=== PATIENT | female | born 1945 | race Caucasian/White ===

== ENCOUNTER → 2018-02-11 12:33 | Outpatient (CLI) | payer MEDICARE, OTHER, SELFPAY | PROVIDERS: Family Provider Internal Medicine; PCP Internal Medicine; Visit Provider Internal Medicine | DX: Z12.31 Encounter for screening mammogram for malignant neoplasm of breast (principal) | CPT/HCPCS: 77063; 77067 ==

== ENCOUNTER → 2018-07-28 07:18 | Outpatient (CLI) | payer MEDICARE, OTHER, SELFPAY ==
[2018-07-28 11:00] LABS: Absolute Lymphocyte Count 1.57 X10^3/ul (0.83-4.51); Basophil# 0.03 X10^3/uL; Basophil% 0.6 % (0-1); Eosinophil# 0.23 X10^3/uL; Eosinophils% 4.4 % (0-5); Hematocrit 42.4 % (37-47); Hemoglobin 13.3 g/dl (12.0-15.0); Lymphocyte # 1.57 X10^3/ul (4.0); Lymphocyte % 29.9 % (19-41); Mean Corp Hgb Conc 31.4 g/gl (32-36); Mean Corpuscular Volume 98.8 fL (81-99); Mean Platelet Vol. 10.3 fl (6.2-12.0); Monocyte# 0.46 X10^3/uL; Monocyte% 8.8 % (0-10); Neutrophil # 2.95 X10^3/uL (2.7-7.7); Neutrophil % 56.1 % (47-70); POSITIVE COUNT NO; POSITIVE DIFFERENTIAL NO; POSITIVE MORPHOLOGY NO; Platelet Count 197 K/mm3 (150-450); RBC Distribution Width CV 14.6 % (11.6-14.6); Red Blood Count 4.29 M/mm3 (4.2-5.4); White Blood Count 5.3 K/mm3 (4.4-11.0)
[2018-07-28 11:15] LABS: Hemoglobin A1c 6.8 % (4.2-6.3)
[2018-07-28 11:18] LABS: Anion Gap 9 (5-15); BUN 24 mg/dL (7-18); BUN/Creat Ratio 29.3 RATIO (10-20); Calcium,Total 9.6 mg/dL (8.5-10.1); Chloride 107 mmol/L (98-107); Cholesterol 197 mg/dL (200); Creatinine, Serum 0.82 mg/dL (0.55-1.02); EST Glomerular Filtration Rate 73 mL/min (>60); Est Glom Filt Rate - Afr Amer 88 mL/min (>60); Glucose 117 mg/dL (74-106); High Density Lipoprotein 48 mg/dL; Potassium 3.8 mmol/L (3.5-5.1); Sodium Level 142 mmol/L (136-145); Triglycerides 326 mg/dL; Very Low Density Lipoprotein 65 mg/dL (5-40)
== END ==
PROVIDERS: Family Provider Internal Medicine; PCP Internal Medicine; Referring Provider Internal Medicine; Visit Provider Internal Medicine
DX: I10 Essential (primary) hypertension (principal); E11.9 Type 2 diabetes mellitus without complications
CPT/HCPCS: 36415; 80048; 80061; 83036; 85025

== ENCOUNTER → 2019-05-25 10:23 | Outpatient (CLI) | payer MEDICARE, OTHER, SELFPAY ==
[2019-01-14 10:13] VITALS: BMI 35.4
--- NOTE | 2019-05-25 10:27 | BI_ITS ---
MAMMOGRAPHY - BILATERAL SCREENING REASON FOR EXAM: Female, 74 years old. Routine annual screening examination. PERTINENT HISTORY: Sister with breast cancer. Mother with breast cancer. Aunts with breast cancer. Remote right excisional breast biopsy. History of bruising in the left breast with palpable abnormality. TECHNIQUE: Digital bilateral breast nathalia (3D mammographic acquisition) in the CC and MLO projections. 2-D mediolateral oblique (MLO) and craniocaudad (CC) views of both breasts were obtained. CAD: Full Field Digital Mammography with Computer Added Detection was performed. COMPARISON: Comparison is made with prior study dated February 11, 2018 and January 22, 2007. FINDINGS: Breast Composition: The breasts are heterogeneously dense, which may obscure small masses. There is a 1.1 cm x 0.7 cm well defined nodule in the central slightly lateral aspect of the right breast. No cluster of microcalcification is seen. No other significant abnormalities are identified. BI/SCREEN MAMM (CAD) W/NATHALIA BILAT IMPRESSION: 1.1 cm x 0.7 cm well-defined nodule in the central slightly lateral aspect the right breast. Correlation with ultrasound is recommended. Also, with the patient's history of a palpable abnormality of the left breast, targeted ultrasound is recommended as well. ASSESSMENT CATEGORY: BIRADS Category 0: Incomplete. Need additional imaging evaluation. A letter regarding these results will be sent to the patient by the facility within 30 days. Approximately 10% of breast cancers are not detected by mammography. A normal mammogram should not delay biopsy of a clinically suspicious abnormality. [id number] Electronically Signed: Stas Ambrocio, at 12:20 EST , Service support ,
--- NOTE | 2019-05-25 10:29 | BD_ITS ---
STUDY: DUAL ENERGY X-RAY ABSORPTIOMETRY / DXA REASON FOR EXAM: Female, 74 years old. The patient is postmenopausal. Loss of height. TECHNIQUE: Bone Mineral Density (BMD) measurements of lumbar spine and bilateral hips were obtained. COMPARISON: Comparison is made with prior study dated January 22, 2017. FINDINGS: Lumbar Spine (L1-L4): g/cm2 (1.052) / T-score (-1.2) / Z-score (0.5) Findings are suggestive of osteopenia with a low fracture risk. Left Femur Total: g/cm2 (0.978) / T-score (-0.2) / Z-score (1.3) Left Femoral Neck: g/cm2 (0.790) / T-score (-1.8) / Z-score (0.0) Right Femur Total: g/cm2 (0.916) / T-score (-0.7) / Z-score (0.8) Right Femoral Neck: g/cm2 (0.736) / T-score (-2.2) / Z-score (-0.4) The T-Scores on the most recent prior examination were: Lumbar Spine (L1-L4): There has been worsening of bone density since the previous examination. Left Femur Total: which represents a worsening of 5.4%. Right Femur Total: which represents a worsening of 6.2%. BD/Dexa Bone Density Study IMPRESSION: The patient is considered osteopenic as outlined below according to World Rasta Organization (WHO) criteria with a moderate fracture risk. There has been worsening of bone density since the previous examination. Reference Information: The T-score is the number of standard deviations above or below the standard which is normal for young adults at their peak bone mineral density. The World Health Organization (WHO) interprets the T-scores as follows: Above -1 Normal bone density Between -1 and -2.5 Osteopenia Equal to / or below -2.5 Osteoporosis As a practical clinical guideline, osteopenia may be graded as follows: Mild -1 through -1.5 Moderate -1.6 through -2.0 Severe -2.1 through -2.4 The Z-score is the number of standard deviations above or below age-matched controls. A Z-score of less than -1.5 would be considered abnormal. References: 1. NIH Osteoporosis and Related Bone Diseases http://www.osteo.org 2. International Society for Clinical Densitometry http://www.iscd.org 3. National Osteoporosis Foundation http://www.nof.org Electronically Signed: Stas Ambrocio, at 15:22 EST , Service support ,
== END ==
PROVIDERS: Family Provider Internal Medicine; PCP Internal Medicine; Referring Provider Internal Medicine; Visit Provider Internal Medicine
DX: Z12.31 Encounter for screening mammogram for malignant neoplasm of breast (principal); Z78.0 Asymptomatic menopausal state; M85.80 Other specified disorders of bone density and structure, unspecified site; Z80.3 Family history of malignant neoplasm of breast
CPT/HCPCS: 77063; 77067; 77080

== ENCOUNTER → 2019-05-27 13:14 | Outpatient (CLI) | payer MEDICARE, OTHER, SELFPAY ==
[2019-01-14 10:13] VITALS: BMI 35.4
--- NOTE | 2019-05-27 13:17 | US_ITS ---
STUDY: ULTRASOUND BREAST - BILATERAL REASON FOR EXAM: Female, 74 years old. Palpable lump in the left breast. TECHNIQUE: Axial and longitudinal images of the BILATERAL breast were performed with a high resolution ultrasound transducer. # OF IMAGES: 56 COMPARISON: Comparison is made with prior mammogram dated May 25, 2019. FINDINGS: BILATERAL Breast: The entire right breast was examined. There is homogeneous fibroglandular tissue. No normality is seen. There is a 4 mm x 4 mm x 3 mm cyst at the 12:00 position of the breast at 4 cm from the nipple. This also evidence of the 4 mm x 4 mm x 2 mm cyst at the 5:00 position of the breast at 4 cm from nipple. US/Breast Complete Bilateral IMPRESSION: 2 small cysts are seen in the left breast as described. No sonographic abnormality of the right breast. ASSESSMENT CATEGORY: BIRADS Category 2: Benign. A letter regarding these results will be sent to the patient by the facility within 30 days. Electronically Signed: Stas Ambrocio, at 9:53 EST , Service support ,
== END ==
PROVIDERS: Family Provider Internal Medicine; PCP Internal Medicine; Referring Provider Internal Medicine; Visit Provider Internal Medicine
DX: R92.8 Other abnormal and inconclusive findings on diagnostic imaging of breast (principal)
CPT/HCPCS: 76641

== ENCOUNTER → 2019-07-11 12:00 | Outpatient (CLI) | payer MEDICARE, OTHER, SELFPAY ==
[2019-06-01 09:29] VITALS: BMI 38.2
[2019-07-11 12:35] LABS: Absolute Lymphocyte Count 1.24 X10^3/uL (0.83-4.51); Absolute Neutrophil Count 4.3 X10^3/uL (2.0-7.7); Basophil# 0.03 X10^3/uL; Basophil% 0.5 % (0-1); Eosinophil# 0.18 X10^3/uL; Eosinophils% 2.9 % (0-5); Hematocrit 43.7 % (37-47); Hemoglobin 13.5 g/dL (12.0-15.0); Lymphocyte # 1.24 X10^3/ul (4.0); Lymphocyte % 19.8 % (19-41); Mean Corp Hgb Conc 30.9 g/dL (32-36); Mean Corpuscular Hgb 30.1 pg (27.0-32.0); Mean Corpuscular Volume 97.5 fL (81-99); Mean Platelet Vol. 10.1 fl (6.2-12.0); Monocyte# 0.49 X10^3/uL; Monocyte% 7.8 % (0-10); NRBC Flagged by Analyzer 0 % (0-5); Neutrophil # 4.29 X10^3/uL (2.7-7.7); Neutrophil % 68.7 % (47-70); Platelet Count 187 K/mm3 (150-450); RBC Distribution Width CV 13.7 % (11.6-14.6); RBC Distribution Width SD 49.9 fl (35.1-43.9); Red Blood Count 4.48 M/mm3 (4.2-5.4); White Blood Count 6.3 K/mm3 (4.4-11.0)
[2019-07-11 13:01] LABS: ALB/GLOB Ratio 1.1 RATIO (0.9-2.4); AST(SGOT) 20 U/L (15-37); Alanine Aminotransfer ALT/SGPT 42 U/L (13-56); Albumin, Serum 3.6 g/dL (3.2-5.0); Alkaline Phosphatase 162 U/L (45-117); Anion Gap 3 (5-15); BUN 14 mg/dL (7-18); BUN/Creat Ratio 19.7 RATIO (10-20); Calcium,Total 10.5 mg/dL (8.5-10.1); Chloride 108 mmol/L (98-107); Cholesterol 188 mg/dL (200); Creatinine, Serum 0.71 mg/dL (0.55-1.02); EST Glomerular Filtration Rate 86 mL/min (>60); Est Glom Filt Rate - Afr Amer 104 mL/min (>60); Globulin 3.4 g/dL (2.2-4.2); Glucose 138 mg/dL (74-106); High Density Lipoprotein 51 mg/dL; Sodium Level 141 mmol/L (136-145); Triglycerides 240 mg/dL; Very Low Density Lipoprotein 48 mg/dL (5-40)
[2019-07-11 13:04] LABS: Hemoglobin A1c 6.1 % (4.2-6.3)
[2019-07-11 13:11] LABS: Microalbumin,Random Urine 13.2 mg/L (NO RANGE EST.); Vitamin D,25 Hydroxy 19.3 ng/mL (29.95-100.01)
== END ==
PROVIDERS: PCP Internal Medicine; Visit Provider Internal Medicine
DX: E11.9 Type 2 diabetes mellitus without complications (principal); L40.9 Psoriasis, unspecified; I10 Essential (primary) hypertension; E55.9 Vitamin D deficiency, unspecified
CPT/HCPCS: 36415; 80053; 80061; 82043; 82306; 82570; 83036; 85025

== ENCOUNTER → 2020-01-09 10:33 | Outpatient (CLI) | payer MEDICARE, OTHER, SELFPAY ==
[2020-01-09 10:09] VITALS: BMI 38.2
[2020-01-09 12:30] LABS: Anion Gap 5 (5-15); BUN 16 mg/dL (7-18); BUN/Creat Ratio 20.4 RATIO (10-20); Calcium,Total 9.8 mg/dL (8.5-10.1); Chloride 106 mmol/L (98-107); Creatinine, Serum 0.78 mg/dL (0.55-1.02); EST Glomerular Filtration Rate 77 mL/min (>60); Est Glom Filt Rate - Afr Amer 93 mL/min (>60); Glucose 176 mg/dL (74-106); Potassium 4.2 mmol/L (3.5-5.1); Sodium Level 139 mmol/L (136-145)
== END ==
PROVIDERS: PCP Internal Medicine; Referring Provider Internal Medicine; Visit Provider Internal Medicine
DX: I10 Essential (primary) hypertension (principal); E11.9 Type 2 diabetes mellitus without complications
CPT/HCPCS: 36415; 80048

== ENCOUNTER → 2020-07-09 10:47 | Outpatient (CLI) | payer MEDICARE, OTHER, SELFPAY ==
[2020-07-09 12:51] LABS: Absolute Lymphocyte Count 1.25 X10^3/uL (0.83-4.51); Basophil# 0.05 X10^3/uL; Basophil% 0.8 % (0-1); Hematocrit 44.9 % (37-47); Hemoglobin 14.3 g/dL (12.0-15.0); Lymphocyte # 1.25 X10^3/ul (4.0); Lymphocyte % 20.7 % (19-41); Mean Corp Hgb Conc 31.8 g/dL (32-36); Mean Corpuscular Volume 97.4 fL (81-99); Mean Platelet Vol. 10.1 fl (6.2-12.0); Monocyte# 0.46 X10^3/uL; Monocyte% 7.6 % (0-10); NRBC Flagged by Analyzer 0 % (0-5); Neutrophil # 3.96 X10^3/uL (2.7-7.7); Neutrophil % 65.6 % (47-70); Platelet Count 224 K/mm3 (150-450); RBC Distribution Width SD 50.4 fl (35.1-43.9); Red Blood Count 4.61 M/mm3 (4.2-5.4)
[2020-07-09 13:03] LABS: ALB/GLOB Ratio 0.9 RATIO (0.9-2.4); AST(SGOT) 30 U/L (15-37); Alanine Aminotransfer ALT/SGPT 50 U/L (13-56); Albumin, Serum 3.5 g/dL (3.2-5.0); Alkaline Phosphatase 164 U/L (45-117); Anion Gap 7 (5-15); BUN 15 mg/dL (7-18); BUN/Creat Ratio 19.3 RATIO (10-20); Calcium,Total 10.1 mg/dL (8.5-10.1); Chloride 102 mmol/L (98-107); Cholesterol 193 mg/dL (200); Creatinine, Serum 0.78 mg/dL (0.55-1.02); EST Glomerular Filtration Rate 77 mL/min (>60); Est Glom Filt Rate - Afr Amer 93 mL/min (>60); Globulin 3.7 g/dL (2.2-4.2); Glucose 132 mg/dL (74-106); High Density Lipoprotein 48 mg/dL; Potassium 3.9 mmol/L (3.5-5.1); Protein, Total 7.2 g/dL (6.4-8.2); Sodium Level 137 mmol/L (136-145); Triglycerides 262 mg/dL; Very Low Density Lipoprotein 52 mg/dL (5-40)
[2020-07-09 13:11] LABS: Hemoglobin A1c 6.3 % (3.8-5.6)
== END ==
PROVIDERS: PCP Internal Medicine; Visit Provider Internal Medicine
DX: E11.9 Type 2 diabetes mellitus without complications (principal); I10 Essential (primary) hypertension; E78.5 Hyperlipidemia, unspecified; E55.9 Vitamin D deficiency, unspecified
CPT/HCPCS: 36415; 80053; 80061; 82306; 83036; 85025

== ENCOUNTER → 2021-11-04 | Outpatient (CLI) | payer MEDICARE, OTHER, SELFPAY ==
[2021-11-04 15:13] LABS: Absolute Lymphocyte Count 1.19 X10^3/uL (0.83-4.51); Absolute Neutrophil Count 4.4 X10^3/uL (2.0-7.7); Basophil# 0.03 X10^3/uL; Basophil% 0.5 % (0-1); Eosinophil# 0.19 X10^3/uL; Hematocrit 37.8 % (37-47); Hemoglobin 11.8 g/dL (12.0-15.0); Lymphocyte # 1.19 X10^3/ul (0.83-4.51); Lymphocyte % 18.5 % (19-41); Mean Corp Hgb Conc 31.2 g/dL (32-36); Mean Corpuscular Hgb 31.5 pg (27.0-32.0); Mean Corpuscular Volume 100.8 fL (81-99); Mean Platelet Vol. 9.8 fl (6.2-12.0); Monocyte# 0.62 X10^3/uL; Monocyte% 9.7 % (0-10); NRBC Flagged by Analyzer 0 % (0-5); Neutrophil # 4.37 X10^3/uL (2.7-7.7); Platelet Count 225 K/mm3 (150-450); RBC Distribution Width CV 14.4 % (11.6-14.6); RBC Distribution Width SD 52.6 fl (35.1-43.9); Red Blood Count 3.75 M/mm3 (4.2-5.4); White Blood Count 6.4 K/mm3 (4.4-11.0)
[2021-11-04 15:36] LABS: Vitamin D,25 Hydroxy 42.9 ng/mL
[2021-11-04 15:48] LABS: ALB/GLOB Ratio 0.9 RATIO (0.9-2.4); AST(SGOT) 22 U/L (15-37); Alanine Aminotransfer ALT/SGPT 35 U/L (13-56); Albumin, Serum 3.2 g/dL (3.2-5.0); Alkaline Phosphatase 142 U/L (45-117); Anion Gap 8 (5-15); BUN 16 mg/dL (7-18); Calcium,Total 10.5 mg/dL (8.5-10.1); Chloride 105 mmol/L (98-107); Cholesterol 169 mg/dL (200); Creatinine, Serum 0.67 mg/dL (0.55-1.02); EST Glomerular Filtration Rate 92 mL/min (>60); Est Glom Filt Rate - Afr Amer 111 mL/min (>60); Globulin 3.4 g/dL (2.2-4.2); Glucose 135 mg/dL (74-106); High Density Lipoprotein 46 mg/dL; Potassium 3.5 mmol/L (3.5-5.1); Protein, Total 6.6 g/dL (6.4-8.2); Sodium Level 142 mmol/L (136-145); Triglycerides 299 mg/dL; Very Low Density Lipoprotein 60 mg/dL (5-40)
[2021-11-04 17:43] LABS: Ferritin 31 ng/mL (8-252); Iron 71 ug/dL (50-170); Iron Binding Capacity,Total 369 ug/dL (250-450)
== END | disposition home or self-care (01) ==
LOC: BIMLAB 13:49
PROVIDERS: PCP Internal Medicine; Referring Provider Internal Medicine; Visit Provider Internal Medicine
DX: E55.9 Vitamin D deficiency, unspecified (principal); E11.9 Type 2 diabetes mellitus without complications; D64.9 Anemia, unspecified; E78.5 Hyperlipidemia, unspecified
CPT/HCPCS: 36415; 80053; 80061; 82306; 82728; 83540; 83550; 85025

== ENCOUNTER → 2021-11-08 | Outpatient (CLI) | payer MEDICARE, OTHER, SELFPAY ==
--- NOTE | 2021-11-08 13:24 | BI_ITS ---
MAMMOGRAPHY - BILATERAL SCREENING REASON FOR EXAM: Female, 76 years old. Routine annual screening examination. PERTINENT HISTORY: Sister with breast cancer. Mother with breast cancer. Aunt with breast cancer. Remote right excisional breast biopsy. TECHNIQUE: Digital bilateral breast nathalia (3D mammographic acquisition) in the CC and MLO projections. 2-D mediolateral oblique (MLO) and craniocaudad (CC) views of both breasts were obtained. CAD: Full Field Digital Mammography with Computer Added Detection was performed. COMPARISON: Comparison is made with prior study dated 05/25/2019 and 02/11/2018. FINDINGS: Breast Composition: The breasts are heterogeneously dense, which may obscure small masses. There are no dominant masses or suspicious calcifications. Stable 1.1 cm well-defined nodule in the slightly upper lateral aspect of the right breast. This was demonstrated to be a cyst on prior sonogram. No other significant abnormalities are identified. There has been no significant change since the prior study. BI/SCRN MAMM (CAD)W/NATHALIA BILAT IMPRESSION: Stable bilateral screening mammogram. Yearly follow-up mammogram recommended. (A) ASSESSMENT CATEGORY: BIRADS Category 2: Benign. A letter regarding these results will be sent to the patient by the facility within 30 days. Approximately 10% of breast cancers are not detected by mammography. A normal mammogram should not delay biopsy of a clinically suspicious abnormality. [id number] Electronically Signed: Stas Ambrocio MD at 14:52 EDT ,
== END | disposition home or self-care (01) ==
LOC: OPBI 13:22
PROVIDERS: PCP Internal Medicine; Visit Provider Internal Medicine
DX: Z12.31 Encounter for screening mammogram for malignant neoplasm of breast (principal); Z80.3 Family history of malignant neoplasm of breast
CPT/HCPCS: 77063; 77067

== ENCOUNTER 2022-03-03 18:13 | Emergency (ER) | payer MEDICARE, OTHER, SELFPAY ==
[2022-03-03] VITALS (9 sets, daily range): BP systolic 120–154; BP diastolic 61–103; PULSE 80–95; RESP 15–17; TEMP 35.9–36.6; O2SAT 97–100; BMI 35.6
--- NOTE | 2022-03-03 19:02 | EDS_ITS ---
HPI History of Present Illness Chief Complaint: Abn Labs Narrative Narrative: 76-year-old female presenting with low hemoglobin. She states that she has been fatigued, a little short of breath for about 3 weeks now. She had outpatient blood work done which showed her hemoglobin was 5.5. She was sent to the ED for evaluation. She says sometimes she has some throat irritation but is able to eat, drink, swallow. She does not have any epigastric pain. She denies black or bloody stools. She has no abdominal pain. No history of GI bleed. She has a history of colonoscopy which was normal distantly. She is never had upper endoscopy. [facility] Medical History Anemia Cataracts, both eyes Flu vaccine need Gallstones Health care maintenance History of back problems Hyperlipemia Home Medications aspirin 81 mg tablet,delayed release 81 mg PO QDAY 01/08/18 [History Last Taken Unknown] calcium carbonate 600 mg calcium (1,500 mg) tablet (Calcium) 600 mg PO BID 01/08/18 [History Last Taken Unknown] cholecalciferol (vitamin D3) 25 mcg (1,000 unit) capsule 1,000 unit PO QDAY 01/08/18 [History Last Taken Unknown] omega 3-fds-cql-fish oil 1,200 mg (144 mg-216 mg) capsule (Fish Oil) cap PO 01/09/20 [History Last Taken Unknown] vitamins A,C,J-cmyr-eklidk 14,320 unit-226 mg-200 unit capsule (PreserVision AREDS) 1 cap PO BID 01/09/20 [History Last Taken Unknown] hydrochlorothiazide 12.5 mg tablet 12.5 mg PO DAILY #90 tabs 03/11/21 [Rx Last Taken Unknown] losartan 50 mg tablet 50 mg PO DAILY #90 tabs 03/11/21 [Rx Last Taken Unknown] atorvastatin 20 mg tablet 20 mg PO DAILY #90 tabs 09/19/21 [Rx Last Taken Unknown] betamethasone valerate 0.1 % topical ointment 1 applic topical BID PRN rash #45 grams 12/31/21 [Rx Last Taken Unknown] miconazole nitrate 2 % topical powder 1 applic topical BID #90 grams 12/31/21 [Rx Last Taken Unknown] Allergy/AdvReac Type Severity Reaction Status Date / Time No Known Allergies Allergy Verified 03/03/22 18:14 Family History Mother Breast cancer Grandmother CVA (cerebral vascular accident) Hypertension Father Heart disease Myocardial infarction Sister Breast cancer Aunt Breast cancer Surgical History Broken ankle H/O: hysterectomy Hx of section Hx of colonoscopy Social History Smoking Status: Former smoker Tobacco: How many years used: 13 alcohol intake: current alcohol intake frequency: holidays/special occasions only Alcohol type: beer, wine and hard liquor substance use type: does not use caffeine: Yes Type: coffee what type of physical activity do you participate in: none ROS ROS ED Constitutional Constitutional ED: Denies chills or fever(s) Eyes Eyes: Denies change in vision ENT ENT ED: Denies rhinorrhea or sore throat Cardiovascular Cardiovascular: Denies chest pain or palpitations Respiratory/Chest Respiratory/Chest: Denies cough or dyspnea Gastrointestinal Gastrointestinal: Denies abdominal pain, constipation or melena Genitourinary Genitourinary ED: Denies dysuria or hematuria Musculoskeletal Musculoskeletal: Denies arthralgias Integumentary Denies abscess or Abrasions Neurologic Neurologic: Denies headache(s) Psychiatric Psychiatric: Denies anxiety or depression EXAM Physical Exam Const Vital Signs: 03/03/22 18:14 03/03/22 18:42 03/03/22 20:55 Temperature 97.9 F 96.6 F L Temperature Source Temporal Temporal Pulse Rate 95 81 Respiratory Rate 16 15 Respiratory Effort Short of Breath Respiratory Pattern Normal Blood Pressure 124/81 H 120/103 H Blood Pressure Mean 95 108 Blood Pressure Source Monitor Blood Pressure Position Semi-Fowlers Blood Pressure Location Right Arm Pulse Ox 99 100 Oxygen Delivery Method Room Air Room Air 03/03/22 21:08 03/03/22 21:10 03/03/22 22:29 Temperature 97.5 F L 97.7 F L 97.4 F L Temperature Source Temporal Temporal Temporal Pulse Rate 84 83 82 Respiratory Rate 17 16 17 Respiratory Effort Respiratory Pattern Blood Pressure 142/63 H 151/66 H 154/69 H Blood Pressure Mean 89 94 97 Blood Pressure Source Monitor Monitor Monitor Blood Pressure Position Semi-Fowlers Semi-Fowlers Semi-Fowlers Blood Pressure Location Right Arm Right Arm Right Arm Pulse Ox 99 97 99 Oxygen Delivery Method Room Air Room Air Room Air 03/03/22 22:33 Temperature 97.7 F L Temperature Source Temporal Pulse Rate 83 Respiratory Rate 15 Respiratory Effort Respiratory Pattern Blood Pressure 148/61 H Blood Pressure Mean 90 Blood Pressure Source Monitor Blood Pressure Position Semi-Fowlers Blood Pressure Location Right Arm Pulse Ox 100 Oxygen Delivery Method Room Air Positive well nourished General Appearance ED: NAD; Negative for pallor HEENT Reports moist mucous membranes Negative for trauma Eyes PERRL and EOMs intact bilaterally General Eye ED: Yes pale conjunctiva Neck no lymphadenopathy Resp normal respiratory effort and clear to auscultation bilaterally Cardio regular rate and regular rhythm GI normal to inspection, nondistended, normoactive bowel sounds Extremity normal to inspection Neuro CN's II-XII intact bilaterally Sensorium / Orientation: alert Motor Exam: strength 5/5 throughout Psych mental status grossly normal Skin no rashes or lesions noted and no wounds General Skin Exam: Negative for jaundice or pallor MDM MDM MDM Narrative Medical decision making narrative: Patient presenting with acute onset anemia. She denies any black or bloody stools. She denies black or bloody emesis. At most she states she had some irritation in her esophagus. She is able to eat and drink normally. She has had symptoms of fatigue and lightheadedness as well as a little bit of shortness of breath. Blood work outpatient today showed a hemoglobin of 5.5. The last hemoglobin she had drawn was 11.8 in October. Vital signs are stable and actually her blood pressure is normal at 124/81. Pulse 95, respiratory rate 16, O2 sats 99% on room air. Patient does have pale conjunctiva but she does not look pale. I spoke with Dr. Nunez. who did not believe she needed emergent endoscopy as she is not had any rapid bleeding and cannot describe any black or bloody stools. He recommended transfusing 3 units of blood and having her follow-up with him outpatient. I did offer to admit the patient for monitoring to receive the blood but did state to her that she would not get an endoscopy even if she stayed. At this point she states she just wanted to get transfused and follow- up as an outpatient. She refused rectal exam for occult stool. Patient will be monitored until blood products were transfused and then she will be discharged home. Impression: 1. Acute anemia 2. GI bleed Lab Data Attestation: I reviewed the patient's lab results. Labs: Laboratory Results - last 24 hr 03/03/22 19:05 Blood Type O POSITIVE Antibody Screen NEGATIVE Crossmatch See Detail Discharge Plan Triage Chief Complaint: Abn Labs ED Provider: Alfonso Heller Dx/Rx/DC Orders Prescriptions: No Action aspirin 81 mg tablet,delayed release (DR/EC) 81 mg PO QDAY calcium carbonate [Calcium 600] 600 mg calcium (1,500 mg) tablet 600 mg PO BID cholecalciferol (vitamin D3) 1,000 unit capsule 1,000 unit PO QDAY PreserVision AREDS 14,[id number] lgai-gu-hjuo capsule 1 cap PO BID omega 5-oqz-plv-fish oil [Fish Oil] 1,200 (144-216) mg capsule PO losartan 50 mg tablet 50 mg PO DAILY Qty: 90 3RF hydrochlorothiazide 12.5 mg tablet 12.5 mg PO DAILY Qty: 90 3RF atorvastatin 20 mg tablet 20 mg PO DAILY Qty: 90 3RF betamethasone valerate 0.1 % ointment 1 applic TOPICAL BID PRN (Reason: rash) Qty: 45 3RF miconazole nitrate 2 % powder 1 applic TOPICAL BID Qty: 90 3RF Primary Care Provider: Elia Roblero Referrals: Elia Roblero MD [Primary Care Provider] -
[2022-03-04] VITALS (10 sets, daily range): BP systolic 140–178; BP diastolic 44–73; PULSE 77–84; RESP 16–21; TEMP 36.3–36.6; O2SAT 96–99
== END 2022-03-04 04:17 | disposition home or self-care (01) ==
PROVIDERS: Emergency Provider Student in an Organized Health Care Education/Training Program; PCP Internal Medicine; Visit Provider Student in an Organized Health Care Education/Training Program
DX: K92.2 Gastrointestinal hemorrhage, unspecified (principal); E78.5 Hyperlipidemia, unspecified; R06.02 Shortness of breath; D64.9 Anemia, unspecified; R19.5 Other fecal abnormalities; Z87.891 Personal history of nicotine dependence
CPT/HCPCS: 36415; 80053; 82306; 82728; 83540; 83550; 83880; 84443; 85025; 86850; 86900; 86901; 86920; 86922; 99283; J7040; P9016; A4216

== ENCOUNTER → 2022-03-03 | Outpatient (CLI) | payer MEDICARE, OTHER, SELFPAY ==
[2022-03-03 15:27] LABS: Absolute Lymphocyte Count 0.89 X10^3/uL (0.83-4.51); Absolute Neutrophil Count 4.3 X10^3/uL (2.0-7.7); Basophil# 0.04 X10^3/uL; Basophil% 0.7 % (0-1); Eosinophil# 0.11 X10^3/uL; Eosinophils% 1.9 % (0-5); Hematocrit 20.2 % (37-47); Lymphocyte # 0.89 X10^3/ul (0.83-4.51); Lymphocyte % 15.2 % (19-41); Mean Corp Hgb Conc 27.2 g/dL (32-36); Mean Corpuscular Hgb 26.1 pg (27.0-32.0); Mean Corpuscular Volume 95.7 fL (81-99); Monocyte# 0.45 X10^3/uL; Monocyte% 7.7 % (0-10); NRBC Flagged by Analyzer 0.3 % (0-5); Neutrophil # 4.32 X10^3/uL (2.7-7.7); POSITIVE COUNT YES; Platelet Count 293 K/mm3 (150-450); RBC Distribution Width CV 17.4 % (11.6-14.6); RBC Distribution Width SD 58.8 fl (35.1-43.9); Red Blood Count 2.11 M/mm3 (4.2-5.4); White Blood Count 5.8 K/mm3 (4.4-11.0)
[2022-03-03 15:32] LABS: Vitamin D,25 Hydroxy 35.4 ng/mL
[2022-03-03 15:37] LABS: ALB/GLOB Ratio 0.9 RATIO (0.9-2.4); AST(SGOT) 13 U/L (15-37); Alanine Aminotransfer ALT/SGPT 21 U/L (13-56); Albumin, Serum 2.9 g/dL (3.2-5.0); Alkaline Phosphatase 143 U/L (45-117); Anion Gap 5 (5-15); BUN 19 mg/dL (7-18); BUN/Creat Ratio 27.2 RATIO (10-20); Calcium,Total 9.3 mg/dL (8.5-10.1); Chloride 109 mmol/L (98-107); EST Glomerular Filtration Rate 87 mL/min (>60); Est Glom Filt Rate - Afr Amer 105 mL/min (>60); Ferritin 7 ng/mL (8-252); Globulin 3.2 g/dL (2.2-4.2); Glucose 120 mg/dL (74-106); Iron 17 ug/dL (50-170); Iron Binding Capacity,Total 447 ug/dL (250-450); Potassium 3.6 mmol/L (3.5-5.1); Protein, Total 6.1 g/dL (6.4-8.2); Sodium Level 141 mmol/L (136-145); Thyroid Stim Hormone (TSH) 1.81 uIU/mL (0.358-3.74)
[2022-03-03 16:17] LABS: Differential Indicated SCAN CRITERIA MET; Hemoglobin 5.5 g/dL (12.0-15.0)
[2022-03-03 16:22] LABS: Differential Comment SCANNED; Hypochromasia 1+
[2022-03-03 17:15] LABS: BNP,B-Type NATRIURETIC PEPTIDE 50.6 pg/mL (0-100)
[2022-03-04 14:27] LABS: Pathologist Review Reviewed
== END | disposition home or self-care (01) ==
LOC: BIMLAB 13:59
PROVIDERS: PCP Internal Medicine; Visit Provider Physician Assistant
DX: E55.9 Vitamin D deficiency, unspecified (principal); D64.9 Anemia, unspecified; R53.83 Other fatigue; R06.02 Shortness of breath; R42 Dizziness and giddiness; I10 Essential (primary) hypertension
CPT/HCPCS: 36415; 80053; 82306; 82728; 83540; 83550; 83880; 84443; 85025

== ENCOUNTER 2022-03-05 13:01 | Inpatient (IN) | payer MEDICARE, OTHER, SELFPAY ==
[2022-03-05] VITALS (7 sets, daily range): BP systolic 124–160; BP diastolic 65–81; PULSE 70–90; RESP 12–18; TEMP 36–36.8; O2SAT 94–99; BMI 36.7; BMI 36.8
--- NOTE | 2022-03-05 14:32 | EKG12_ITS ---
Test Reason : GI BLEED Blood Pressure : / mmHG Vent. Rate : 092 BPM Atrial Rate : 092 BPM P-R Int : 164 ms QRS Dur : 078 ms QT Int : 332 ms P-R-T Axes : 035 053 041 degrees QTc Int : 410 ms Normal sinus rhythm Normal ECG Confirmed by TEJAL CONCEPCION, GASTON ([id number]), international editorial producer DARREN GIBSON ([id number]) on 03/07/2022 10:06:34 AM Referred By: HANG Confirmed By:GASTON TOURE MD
--- NOTE | 2022-03-05 14:34 | NURSING ---
NO OLD EKGS
--- NOTE | 2022-03-05 14:38 | CT_ITS ---
STUDY: CT ABDOMEN AND PELVIS WITH CONTRAST REASON FOR EXAM: Female, 76 years old. Dark blood in stool, left sided abdominal pain x1 month. History of hysterectomy. RADIATION DOSAGE (If Supplied By Facility): CTDIvol = ( 18.17 ) mGy, DLP = ( 1074.42 ) mGycm TECHNIQUE: Transaxial images were obtained from the dome of the diaphragm to the symphysis pubis without oral contrast. IV 100mL Isovue-300 was administered. Sagittal and coronal images were reconstructed. Individualized dose optimization techniques were used for this CT. COMPARISON: None. FINDINGS: There are chronic interstitial fibrotic changes of the lung bases. The visualized portions of the heart are within normal limits. Normal liver. Several tiny gallstones are present. Normal spleen. Normal pancreas. Normal bilateral adrenal glands. Normal right kidney. There is moderate cortical atrophy of the left kidney, consistent with chronic medical renal disease. There is a small hiatal hernia. Normal small intestine. Acute diverticulitis is present in the proximal sigmoid colon within the left lower quadrant where there is mild inflammation and pericolonic inflammatory stranding associated with thickening of the affected portion of the sigmoid colon. Extensive sigmoid diverticulosis is present as well. No demonstrated free air or abscess formation. Diverticula of the proximal, transverse, descending colon are also present. The appendix is visualized and appears normal. There is diffuse atherosclerotic calcification of the abdominal aorta, without a demonstrated aneurysm. Normal inferior vena cava. Normal retroperitoneum. Normal urinary bladder. There is absence of the uterus consistent with a prior hysterectomy. Normal abdominal wall. There are diffuse degenerative changes of the visualized lumbar spine. CT/Abdomen/Pelvis W IV Cont ONLY IMPRESSION: Acute diverticulitis of the sigmoid colon 1. Acute diverticulitis is present in the proximal sigmoid colon within the left lower quadrant where there is mild inflammation and pericolonic inflammatory stranding associated with thickening of the affected portion of the sigmoid colon. 2. Extensive sigmoid diverticulosis is present as well. No demonstrated free air or abscess formation. 3. Diverticula of the proximal, transverse, descending colon are also present. 4. Tiny gallstones Electronically Signed: Christophe Wilson MD at 16:14 EDT ,
--- NOTE | 2022-03-05 14:39 | EDS_ITS ---
HPI HPI - GI History of Present Illness Chief Complaint: GI Bleed Narrative Narrative: 76-year-old female presenting with blood in stool. She states she developed this overnight. She had multiple episodes of black tarry stool. Patient was seen 2 days ago by myself and worse when she had an anemia with a hemoglobin of 5.5. At this point she could not tell me that she had any black or bloody stools. I spoke with Dr. Nunez about the patient and since she was not having any active bleeding and she had not had a hemoglobin checked in a while he felt she was safe for outpatient follow-up and colonoscopy/endoscopy. Patient received 3 units of blood in the ER and went home. She had been okay until last night when she started having diarrhea. She is not had fever or chills. She states that she had some pain in the left upper quadrant for about a month now which she did not express to me when I saw her before. She states is not severe. Patient does admit to some shortness of breath was was associated with her anemia. Its not worse. She states she feels better overall than her previous visit. She is more concerned that she is having bloody diarrhea and started to go back to help. No fever, chills, cough. She states she might of had diverticulitis diagnosed on a colonoscopy a long time ago. [facility] Medical History Anemia Cataracts, both eyes Flu vaccine need Gallstones Health care maintenance History of back problems Hyperlipemia Home Medications aspirin 81 mg tablet,delayed release 81 mg PO QDAY 01/08/18 [History Last Taken Unknown] cholecalciferol (vitamin D3) 25 mcg (1,000 unit) capsule 1,000 unit PO QDAY 01/08/18 [History Last Taken Unknown] losartan 50 mg tablet 50 mg PO DAILY #90 tabs 03/11/21 [Rx Last Taken Unknown] atorvastatin 20 mg tablet 20 mg PO DAILY #90 tabs 09/19/21 [Rx Last Taken Unknown] betamethasone valerate 0.1 % topical ointment 1 applic topical BID PRN rash #45 grams 12/31/21 [Rx Last Taken Unknown] miconazole nitrate 2 % topical powder 1 applic topical BID #90 grams 12/31/21 [Rx Last Taken Unknown] Calcium 600 600 mg PO/SL DAILY supplement 03/05/22 [History Last Taken Unknown] Allergy/AdvReac Type Severity Reaction Status Date / Time No Known Allergies Allergy Verified 03/05/22 13:03 Family History Mother Breast cancer Grandmother CVA (cerebral vascular accident) Hypertension Father Heart disease Myocardial infarction Sister Breast cancer Aunt Breast cancer Surgical History Broken ankle H/O: hysterectomy Hx of section Hx of colonoscopy Social History Smoking Status: Former smoker Tobacco: How many years used: 13 alcohol intake: current alcohol intake frequency: holidays/special occasions only Alcohol type: beer, wine and hard liquor substance use type: does not use caffeine: Yes Type: coffee what type of physical activity do you participate in: none ROS ROS ED Constitutional Constitutional ED: Denies chills or fever(s) ENT ENT ED: Denies rhinorrhea or sore throat Cardiovascular Cardiovascular: Denies chest pain or palpitations Respiratory/Chest Respiratory/Chest: Denies cough or dyspnea Gastrointestinal Gastrointestinal: Reports abdominal pain, diarrhea and melena Genitourinary Genitourinary ED: Denies dysuria or hematuria Musculoskeletal Musculoskeletal: Denies arthralgias Integumentary Denies abscess Neurologic Neurologic: Denies headache(s) or paresthesias Psychiatric Psychiatric: Denies anxiety or depression EXAM Physical Exam Const Vital Signs: 03/05/22 13:03 03/05/22 16:44 Temperature 96.8 F L 98.1 F Temperature Source Temporal Temporal Pulse Rate 70 84 Respiratory Rate 12 18 Blood Pressure 160/81 H 142/74 H Blood Pressure Mean 107 96 Pulse Ox 94 97 Oxygen Delivery Method Room Air Room Air Positive well nourished General Appearance ED: NAD and pallor HEENT Reports moist mucous membranes atraumatic Eyes PERRL and EOMs intact bilaterally General Eye ED: Negative for pale conjunctiva Neck no lymphadenopathy Resp normal respiratory effort and clear to auscultation bilaterally Auscultation: Negative for rales, rhonchi or wheezes Cardio regular rate and regular rhythm GI GI Narrative: Black stool noted on rectal exam. No hemorrhoids noted externally or anteriorly. Palpation: tender LUQ Back/Spine no CVA tenderness Neuro CN's II-XII intact bilaterally Sensorium / Orientation: alert, oriented to person, oriented to place and oriented to time Motor Exam: strength 5/5 throughout Psych mental status grossly normal Skin General Skin Exam: pallor; Negative for jaundice MDM MDM MDM Narrative Medical decision making narrative: Patient presenting with dark tarry stools. On her previous visit she did not note any dark tarry stools or blood in her stool. She has not had any dark black or bloody emesis either. She felt somewhat improved after her blood transfusion 2 days ago but states overnight she had multiple episodes of diarrhea and complains of left upper quadrant pain now. She not had any fever. She denies nausea or vomiting. He is not on anticoagulation. I did addictions counselor her that today we would need to do a rectal exam that she refused the other day. She does have black stool on exam. No external hemorrhoids or internal hemorrhoids noted. No blood is noted. Because the location of the pain I did obtain an EKG and my interpretation there is a normal sinus rhythm with a ventricular rate of 93 bpm without sign of ischemic change or dysrhythmia. Troponin returned at 195. Renal function and electrolytes unremarkable. LFTs are normal. Lipase 132. CT of the abdomen pelvis is interpreted as diverticulitis. I spoke with Dr. Clark regarding the CT findings and the GI bleed and he recommended Zosyn. She does not need a transfusion currently. He will see her in consult. As far as elevated troponin I think this is likely due to her anemia as the area of pain in the left side of her chest has 1 small focal area the size of her finger she points to it. She has had some dyspnea on exertion and some lightheadedness which could be associated with her recent anemia. Her repeat troponin was 185. Chest x-ray my interpretation shows no acute cardiopulmonary process and radiologist agree. Impression: 1. Acute blood loss anemia 2. Left rib pain 3. Acute diverticulitis 4. Elevated troponin Lab Data Attestation: I reviewed the patient's lab results. Labs: Laboratory Results - last 24 hr 03/05/22 03/05/22 03/05/22 14:38 14:38 14:45 WBC 6.7 RBC 3.44 L Hgb 9.5 L Hct 31.6 L MCV 91.9 MCH 27.6 MCHC 30.1 L D RDW Std Deviation 56.3 H RDW Coeff of Colin 17.2 H Plt Count 244 MPV 9.5 Immature Gran % (Auto) 0.600 Neut % (Auto) 74.3 H Lymph % (Auto) 12.2 L [place] % (Auto) 10.5 H Eos % (Auto) 1.8 Baso % (Auto) 0.6 Absolute Neuts (auto) 4.9 Absolute Lymphs (auto) 0.81 L Nucleated RBC % 0 ESR PT 14.2 INR 1.1 Sodium 142 Potassium 3.8 Chloride 111 H Carbon Dioxide 25.0 Anion Gap 6 BUN 13 Creatinine 0.57 Estim Creat Clear Calc 37.24 Est GFR (MDRD) Af Amer 133 Est GFR (MDRD) Non-Af 110 BUN/Creatinine Ratio 22.7 H Glucose 104 Lactic Acid Calcium 9.8 Total Bilirubin 0.40 AST 19 ALT 25 Alkaline Phosphatase 158 H Lactate Dehydrogenase Troponin I High Sens 195 H* C-React Prot Ext Range Total Protein 6.1 L Albumin 2.9 L Globulin 3.2 Albumin/Globulin Ratio 0.9 Lipase 132 03/05/22 03/05/22 03/05/22 14:45 14:45 16:16 WBC RBC Hgb Hct MCV MCH MCHC RDW Std Deviation RDW Coeff of Colin Plt Count MPV Immature Gran % (Auto) Neut % (Auto) Lymph % (Auto) [place] % (Auto) Eos % (Auto) Baso % (Auto) Absolute Neuts (auto) Absolute Lymphs (auto) Nucleated RBC % ESR 19 PT INR Sodium Potassium Chloride Carbon Dioxide Anion Gap BUN Creatinine Estim Creat Clear Calc Est GFR (MDRD) Af Amer Est GFR (MDRD) Non-Af BUN/Creatinine Ratio Glucose Lactic Acid Calcium Total Bilirubin AST ALT Alkaline Phosphatase Lactate Dehydrogenase 233 Troponin I High Sens 185 H* C-React Prot Ext Range 11.90 H Total Protein Albumin Globulin Albumin/Globulin Ratio Lipase 03/05/22 16:50 WBC RBC Hgb Hct MCV MCH MCHC RDW Std Deviation RDW Coeff of Colin Plt Count MPV Immature Gran % (Auto) Neut % (Auto) Lymph % (Auto) [place] % (Auto) Eos % (Auto) Baso % (Auto) Absolute Neuts (auto) Absolute Lymphs (auto) Nucleated RBC % ESR PT INR Sodium Potassium Chloride Carbon Dioxide Anion Gap BUN Creatinine Estim Creat Clear Calc Est GFR (MDRD) Af Amer Est GFR (MDRD) Non-Af BUN/Creatinine Ratio Glucose Lactic Acid 1.0 Calcium Total Bilirubin AST ALT Alkaline Phosphatase Lactate Dehydrogenase Troponin I High Sens C-React Prot Ext Range Total Protein Albumin Globulin Albumin/Globulin Ratio Lipase Radiography Diagnostic Testing: Clinical Impression(s) from Imaging Studies Abdomen/Pelvis CT 03/05/22 14:38 IMPRESSION: Acute diverticulitis of the sigmoid colon 1. Acute diverticulitis is present in the proximal sigmoid colon within the left lower quadrant where there is mild inflammation and pericolonic inflammatory stranding associated with thickening of the affected portion of the sigmoid colon. 2. Extensive sigmoid diverticulosis is present as well. No demonstrated free air or abscess formation. 3. Diverticula of the proximal, transverse, descending colon are also present. 4. Tiny gallstones Electronically Signed: Christophe Wilson MD at 16:14 EDT Reading Location ID and State: [facility] / [place] , Service support , Discharge Plan Disposition Disposition: Acute Care Hospital [facility] Discharge Date/Time: 03/05/22 17:13
[2022-03-05 14:48] LABS: Absolute Lymphocyte Count 0.81 X10^3/uL (0.83-4.51); Absolute Neutrophil Count 4.9 X10^3/uL (2.0-7.7); Basophil# 0.04 X10^3/uL; Basophil% 0.6 % (0-1); Eosinophil# 0.12 X10^3/uL; Eosinophils% 1.8 % (0-5); Hematocrit 31.6 % (37-47); Hemoglobin 9.5 g/dL (12.0-15.0); Lymphocyte # 0.81 X10^3/ul (0.83-4.51); Lymphocyte % 12.2 % (19-41); Mean Corpuscular Hgb 27.6 pg (27.0-32.0); Mean Corpuscular Volume 91.9 fL (81-99); Mean Platelet Vol. 9.5 fl (6.2-12.0); Monocyte% 10.5 % (0-10); NRBC Flagged by Analyzer 0 % (0-5); Neutrophil # 4.94 X10^3/uL (2.7-7.7); Neutrophil % 74.3 % (47-70); Platelet Count 244 K/mm3 (150-450); RBC Distribution Width CV 17.2 % (11.6-14.6); RBC Distribution Width SD 56.3 fl (35.1-43.9); Red Blood Count 3.44 M/mm3 (4.2-5.4); White Blood Count 6.7 K/mm3 (4.4-11.0)
[2022-03-05 15:02] LABS: International Normalized Ratio 1.1; Prothrombin Time (Protime)PT. 14.2 SECONDS (11.7-14.9)
[2022-03-05 15:17] LABS: ALB/GLOB Ratio 0.9 RATIO (0.9-2.4); AST(SGOT) 19 U/L (15-37); Alanine Aminotransfer ALT/SGPT 25 U/L (13-56); Albumin, Serum 2.9 g/dL (3.2-5.0); Alkaline Phosphatase 158 U/L (45-117); Anion Gap 6 (5-15); BUN 13 mg/dL (7-18); BUN/Creat Ratio 22.7 RATIO (10-20); Calcium,Total 9.8 mg/dL (8.5-10.1); Chloride 111 mmol/L (98-107); Creatinine, Serum 0.57 mg/dL (0.55-1.02); EST Glomerular Filtration Rate 110 mL/min (>60); Est Glom Filt Rate - Afr Amer 133 mL/min (>60); Estimated Creatinine Clearance 37.24 ml/min; Globulin 3.2 g/dL (2.2-4.2); Glucose 104 mg/dL (74-106); Lipase 132 U/L (73-393); Potassium 3.8 mmol/L (3.5-5.1); Protein, Total 6.1 g/dL (6.4-8.2); Sodium Level 142 mmol/L (136-145); Troponin-I HS 195 pg/mL (3.0-54.0)
[2022-03-05 15:18] LABS: Mean Corp Hgb Conc 30.1 g/dL (32-36)
[2022-03-05 16:55] LABS: Troponin-I HS 185 pg/mL (3.0-54.0)
--- NOTE | 2022-03-05 16:56 | NURSING ---
PCU OBS TERELETSKY GI BLEED, ELEVATED TROP, DIVERTICULITIS
--- NOTE | 2022-03-05 17:04 | ECHOD_ITS ---
Reason For Study: Chest pain Procedure This was a 2D Doppler, Color Flow transthoracic echocardiogram. Exam performed portable in patient room. Left Ventricle Mild concentric left ventricular hypertrophy. The estimated ejection fraction is 55-60 %. Right Ventricle Normal right ventricle. Normal systolic function. Atria Normal left atrium. Normal right atrium. Mitral Valve The mitral valve is structurally normal. No prolapse or stenosis seen. No mitral valve insufficiency. Tricuspid Valve Normal tricuspid valve. Mild tricuspid valve insufficiency. Aortic Valve Mild focal aortic valve calcification. Mild aortic stenosis. PRANAY 1.8 cm2 Ao max PG 19.2 mmhg Ao mean PG 10.6 mmhg. Pulmonic Valve The pulmonic valve is not well visualized. Great Vessels Normal aortic root. Pericardium/Pleural No pericardial effusion. Medication Performed a rapid injection of agitated mix of 9 cc saline and 1cc air to assess for atrial septal defect. MMode/2D Measurements & Calculations LVIDd: 4.1 cm IVSd: 1.3 cm LVOT diam: 1.9 cm LVIDs: 2.2 cm LVPWd: 1.2 cm RVDd: 3.8 cm FS: 47.4 % LVOT area: 3.0 cm2 Ao root diam: 3.1 cm LAV(MOD-bp): 45.0 ml LVAd ap4: 24.7 cm2 LAV(MOD-bp) Indexed: 24.1 ml/m2 LVLd ap4: 7.6 cm LAV(MOD-sp2): 37.6 ml EDV(MOD-sp4): 65.6 ml LAV(MOD-sp4): 45.5 ml EDV(sp4-el): 67.8 ml LVAs ap4: 12.3 cm2 LVLs ap4: 6.5 cm ESV(MOD-sp4): 20.0 ml ESV(sp4-el): 19.9 ml EF(MOD-sp4): 69.5 % EF(sp4-el): 70.7 % LVAd ap2: 24.4 cm2 SV(MOD-sp4): 45.6 ml SV(MOD-sp2): 39.1 ml LVLd ap2: 7.7 cm EDV(MOD-sp2): 64.9 ml EDV(sp2-el): 65.4 ml LVAs ap2: 13.9 cm2 LVLs ap2: 6.9 cm ESV(MOD-sp2): 25.8 ml ESV(sp2-el): 23.8 ml EF(MOD-sp2): 60.2 % SV(sp4-el): 47.9 ml LA dimension(2D): 3.9 cm LA A4 area: 18.6 cm2 RA A4 area: 16.6 cm2 Doppler Measurements & Calculations MV E max clint: 80.4 cm/sec Lat Peak E' Clint: 8.5 cm/sec Med Peak E' Clint: 5.1 cm/sec MV A max clint: 108.6 cm/sec E/E' lat: 9.5 E/E' med: 15.8 MV E/A: 0.74 Ao V2 max: 218.8 cm/sec LV V1 max: 137.6 cm/sec SV(LVOT): 83.8 ml Ao max P.2 mmHg LV V1 max P.6 mmHg Ao V2 mean: 153.2 cm/sec LV V1 mean P.4 mmHg Ao mean P.6 mmHg LV V1 mean: 100.2 cm/sec Ao V2 VTI: 47.6 cm LV V1 VTI: 28.3 cm PRANAY(I,D): 1.8 cm2 PRANAY(V,D): 1.9 cm2 PA V2 max: 112.4 cm/sec TR max clint: 297.9 cm/sec TR max P.6 mmHg ECHO/Echo Complete Interpretation Summary The estimated ejection fraction is 55-60 %. PRANAY 1.8 cm2 Ao max PG 19.2 mmhg Ao mean PG 10.6 mmhg Mild TR No previous study to compare Ordering Physician: Ian Morton Referring Physician: Elia Roblero Performed By: Awa Mcallister RDCS
[2022-03-05 17:05] LABS: Erythrocyte Sedimentation Rate 19 mm/hr (0-30)
[2022-03-05 17:12] LABS: LDH 233 U/L (84-246)
--- NOTE | 2022-03-05 17:12 | CON.PCM_ITS ---
Assessment & Plan Assessment/Plan (1) Diverticulitis: PLAN: Acute sigmoid diverticulitis. Recommend antibiotic therapy for approximately 14 days being that she has severe diverticular disease. Avoid constipation. (2) GI bleed: PLAN: GI bleed likely secondary to ischemic colitis associated with diverticulosis and diverticulitis. She will undergo colonoscopy tomorrow to evaluate the lower GI tract due to her severe anemia with hemoglobin of 5.5. (3) Anemia: PLAN: Differential diagnosis for anemia does include hiatal hernia with Taran's erosions, gastric ulcer secondary to aspirin, neoplasia, angiodysplasia, telangiectasia. She will undergo an upper and lower endoscopy. If that is normal for any signs of GI bleeding then she will need a capsule endoscopy. HPI Consult Data Date of Consult: 03/05/22 HPI Narrative Reason for Consultation: GI bleed HPI Narrative: DIO HODGES, is a 76 F who presented to the ED on 03/03/2022 with low hemoglobin.? She states that she has been fatigued, a little short of breath for about 3 weeks now.? She had outpatient blood work done which showed her hemoglobin was 5.5.? She was sent to the ED for evaluation.? She says sometimes she has some throat irritation but is able to eat, drink, swallow.? She does not have any epigastric pain.? She denies black or bloody stools.? She has no abdominal pain.? No history of GI bleed.? She has a history of colonoscopy which was normal distantly.? She is never had upper endoscopy. She was transfused 3 units of packed red blood cells and was feeling okay until earlier this morning when she developed crampy abdominal pain that went from the right side of her abdomen to the left upper abdomen followed by black tarry stools and then bright red stools. On evaluation in the ED her vital signs were stable. Her hemoglobin was 9.5 with a BUN/creatinine ratio of 13 is 0.7. She had a CT scan abdomen pelvis that showed acute diverticulitis in the proximal sigmoid colon with a left lower quadrant mild inflammation and peric olonic inflammatory associated thickening of the effective portion of the sigmoid colon. There was also extensive sigmoid diverticulosis without any free air or abscess formation. There was diffuse diverticular disease seen in the proximal transverse descending and possibly ascending colon. All other 16 review of systems are negative except as per body mentioned HPI. [facility] Medical History Anemia Cataracts, both eyes Flu vaccine need Gallstones Health care maintenance History of back problems Hyperlipemia Home Medications aspirin 81 mg tablet,delayed release 81 mg PO QDAY 01/08/18 [History Last Taken Unknown] cholecalciferol (vitamin D3) 25 mcg (1,000 unit) capsule 1,000 unit PO QDAY 01/08/18 [History Last Taken Unknown] losartan 50 mg tablet 50 mg PO DAILY #90 tabs 03/11/21 [Rx Last Taken Unknown] atorvastatin 20 mg tablet 20 mg PO DAILY #90 tabs 09/19/21 [Rx Last Taken Unknown] betamethasone valerate 0.1 % topical ointment 1 applic topical BID PRN rash #45 grams 12/31/21 [Rx Last Taken Unknown] miconazole nitrate 2 % topical powder 1 applic topical BID #90 grams 12/31/21 [Rx Last Taken Unknown] Allergy/AdvReac Type Severity Reaction Status Date / Time No Known Allergies Allergy Verified 03/05/22 13:03 Family History Mother Breast cancer Grandmother CVA (cerebral vascular accident) Hypertension Father Heart disease Myocardial infarction Sister Breast cancer Aunt Breast cancer Surgical History Broken ankle H/O: hysterectomy Hx of section Hx of colonoscopy Social History Smoking Status: Former smoker Tobacco: How many years used: 13 alcohol intake: current alcohol intake frequency: holidays/special occasions only Alcohol type: beer, wine and hard liquor substance use type: does not use caffeine: Yes Type: coffee what type of physical activity do you participate in: none ROS Review of Systems ROS Unobtainable: other Constitutional Constitutional: Denies fatigue, fever(s), poor appetite, weight gain or weight loss ENT HEENT: Denies mouth lesions Cardiovascular Cardiovascular: Denies abdominal bloating, abdominal edema or abdominal pain Respiratory/Chest Respiratory/Chest: Denies change in mental status, change in phlegm color, chest congestion or chest tightness Gastrointestinal Gastrointestinal: Denies belching, bloating, change in bowel habits, change in stool character, chewing difficulty, coffee ground emesis, constipation, cramping, diarrhea, dyspepsia, dysphagia, early satiety, excessive flatus, fecal incontinence, heartburn, hematemesis, hematochezia, hemorrhoids, loose stools, melena, nausea, odynophagia, rectal bleeding, tenesmus, vomiting or weight changes Genitourinary Genitourinary: Denies abdominal discomfort, burning urination or itching Musculoskeletal Musculoskeletal: Reports as per HPI; Denies muscle weakness or myalgias Integumentary Integumentary: Denies jaundice Neurologic Neurologic: Denies lack of coordination or weakness Psychiatric Psychiatric: Denies confusion, depression, memory loss, mood swings, paranoia or suicidal ideation Endocrine Endocrinology: Denies systems reviewed and no addt'l complaints, except as documented Hematologic/Lymphatic Hematologic/Lymphatic: Denies anemia, easy bleeding, easy bruising or lymphadenopathy Allergic/Immunologic Allergic/Immunologic: Denies systems reviewed and no addt'l complaints, except as documented Physical Exam Const alert General Appearance: cooperative Orientation / Consciousness: oriented to person HEENT hearing grossly normal bilaterally Head and Scalp: normal to inspection Face and Sinus: face symmetric Nose: external nose normal Mouth: oral and palatal mucosa normal Eyes conjunctivae normal General Eye: normal appearance of both eyes Neck full ROM General: normal visual inspection Lymph Lymphatic: no lymphadenopathy noted Chest inspection of chest normal and palpation of chest normal Chest: symmetrical chest wall rise Resp normal respiratory effort Effort and Inspection: able to speak in complete sentences Cardio regular rate GI non-distended Percussion: normal to percussion Rectal Exam: deferred Neuro Speech: speech normal Gait (Neuro): normal gait Lab / Micro Data Result Diagrams: 03/05/22 14:38 03/05/22 14:38 Labs: Laboratory Results - last 24 hr 03/05/22 14:38: WBC 6.7, RBC 3.44 L, Hgb 9.5 L, Hct 31.6 L, MCV 91.9, MCH 27.6, MCHC 30.1 L D, RDW Std Deviation 56.3 H, RDW Coeff of Oclin 17.2 H, Plt Count 244, MPV 9.5, Immature Gran % (Auto) 0.600, Neut % (Auto) 74.3 H, Lymph % (Auto) 12.2 L, [place] % (Auto) 10.5 H, Eos % (Auto) 1.8, Baso % (Auto) 0.6, Absolute Neuts (auto) 4.9, Absolute Lymphs (auto) 0.81 L, Nucleated RBC % 0 03/05/22 14:38: Sodium 142, Potassium 3.8, Chloride 111 H, Carbon Dioxide 25.0, Anion Gap 6, BUN 13, Creatinine 0.57, Estim Creat Clear Calc 37.24, Est GFR (MDRD) Af Amer 133, Est GFR (MDRD) Non-Af 110, BUN/Creatinine Ratio 22.7 H, Glucose 104, Calcium 9.8, Total Bilirubin 0.40, AST 19, ALT 25, Alkaline Phosphatase 158 H, Troponin I High Sens 195 H*, Total Protein 6.1 L, Albumin 2.9 L, Globulin 3.2, Albumin/Globulin Ratio 0.9, Lipase 132 03/05/22 14:45: PT 14.2, INR 1.1 03/05/22 14:45: ESR 19 03/05/22 14:45: Lactate Dehydrogenase 233, C-React Prot Ext Range 11.90 H 03/05/22 16:16: Troponin I High Sens 185 H* Micro: Microbiology 03/05/22 15:05 Stool Stool Occult Blood (LEONARDO) - Final Occult Blood Positive Radiology Impression Abdomen/Pelvis CT 03/05/22 14:38 IMPRESSION: Acute diverticulitis of the sigmoid colon 1. Acute diverticulitis is present in the proximal sigmoid colon within the left lower quadrant where there is mild inflammation and pericolonic inflammatory stranding associated with thickening of the affected portion of the sigmoid colon. 2. Extensive sigmoid diverticulosis is present as well. No demonstrated free air or abscess formation. 3. Diverticula of the proximal, transverse, descending colon are also present. 4. Tiny gallstones Electronically Signed: Christophe Wilson MD at 16:14 EDT , Charges/Coding Visit Charges Inpatient E&M: 79170 Init Hosp L3
--- NOTE | 2022-03-05 17:26 | HP.PCM_ITS ---
Documented by User: PHILIP Brown 03/05/22 17:54 HPI - General General Date of Admission: 03/05/22 Date of Service: 03/05/22 Chief Complaint: GI Bleed HPI Narrative DIO HODGES, is a 76 F who presents with complaints of melanotic stool. Patient was seen yesterday in the ER and received 3 units PRBC for anemia and was d/c'd home with instructions to follow up with Dr. Nunez as the case was discuss ed with him prior to patient being discharged. At the time patient had not noticed any dark stools or blood in her stool however this changes she states that she had a melanotic stool this morning with some left upper quadrant pain as well. Dr. Clark was consulted by ER physicians and saw patient in ER. Patient does not have a history of GI bleed or diverticulitis. Patient denies any nausea or vomiting. Patient reports a history of hyperlipidemia and hypertension. Patient states that she is borderline diabetic but at her last checkup her numbers were within normal range and she is not currently on any medication for diabetes. [facility] Medical History Anemia Cataracts, both eyes Flu vaccine need Gallstones Health care maintenance History of back problems Hyperlipemia Home Medications aspirin 81 mg tablet,delayed release 81 mg PO QDAY 01/08/18 [History Last Taken Unknown] cholecalciferol (vitamin D3) 25 mcg (1,000 unit) capsule 1,000 unit PO QDAY 01/08/18 [History Last Taken Unknown] losartan 50 mg tablet 50 mg PO DAILY #90 tabs 03/11/21 [Rx Last Taken Unknown] atorvastatin 20 mg tablet 20 mg PO DAILY #90 tabs 09/19/21 [Rx Last Taken Unknown] betamethasone valerate 0.1 % topical ointment 1 applic topical BID PRN rash #45 grams 12/31/21 [Rx Last Taken Unknown] miconazole nitrate 2 % topical powder 1 applic topical BID #90 grams 12/31/21 [Rx Last Taken Unknown] Calcium 600 600 mg PO/SL DAILY supplement 03/05/22 [History Last Taken Unknown] Allergy/AdvReac Type Severity Reaction Status Date / Time No Known Allergies Allergy Verified 03/05/22 13:03 Family History Mother Breast cancer Grandmother CVA (cerebral vascular accident) Hypertension Father Heart disease Myocardial infarction Sister Breast cancer Aunt Breast cancer Surgical History Broken ankle H/O: hysterectomy Hx of section Hx of colonoscopy Social History Smoking Status: Former smoker Tobacco: How many years used: 13 alcohol intake: current alcohol intake frequency: holidays/special occasions only Alcohol type: beer, wine and hard liquor substance use type: does not use caffeine: Yes Type: coffee what type of physical activity do you participate in: none ROS Constitutional Constitutional: Denies anorexia, chills, fatigue, fever(s), malaise or weakness Cardiovascular Cardiovascular: Denies chest pain, edema or syncope Respiratory/Chest Respiratory/Chest: Denies cough, shortness of breath at rest, shortness of b reath with exertion or wheezing Gastrointestinal Gastrointestinal: Reports abdominal pain and melena; Denies nausea or vomiting Genitourinary Genitourinary: Denies dysuria Musculoskeletal Musculoskeletal: Denies back pain, extremity pain or joint pain Integumentary Integumentary: Denies dry skin Neurologic Neurologic: Denies abnormal gait, abnormal speech or confusion Psychiatric Psychiatric: Denies anxiety or depression Endocrine Endocrinology: Denies change in body appearance Hematologic/Lymphatic Hematologic/Lymphatic: Reports anemia Vital Signs Vital Signs Vital Signs: 03/05/22 13:03 03/05/22 17:04 03/05/22 16:44 Temperature 96.8 F L 98 F 98.1 F Temperature Source Temporal Temporal Temporal Pulse Rate 70 89 84 Respiratory Rate 12 14 18 Blood Pressure 160/81 H 151/78 H 142/74 H Blood Pressure Mean 107 102 96 Pulse Ox 94 99 97 Oxygen Delivery Method Room Air Room Air Room Air Weight Weight: 194 lb 7.163 oz Body Mass Index (BMI) 36.7 Physical Exam Const alert, oriented x3 and no apparent distress General Appearance: cooperative HEENT normocephalic, head/scalp atraumatic and moist oral mucous membranes Eyes conjunctivae normal and no scleral icterus Neck no lymphadenopathy and supple General: trachea midline Resp normal respiratory effort, normal air movement and clear to auscultation bilaterally Cardio regular rate, regular rhythm, S1 normal heart sound, S2 normal heart sound and peripheral pulses 2+ throughout GI normal to inspection, nondistended, normoactive bowel sounds Auscultation: hypoactive bowel sounds Palpation: tender LUQ Extremity normal capillary refill and no clubbing, cyanosis or edema Skin General Skin Exam: no breakdown Lesions: no lesions Rashes: no rashes Neuro no focal motor deficits and no sensory deficits noted Speech: speech normal Psych thought process normal, cooperative and affect normal Appearance: appropriate Results Lab / Micro Data Result Diagrams: 03/05/22 14:38 03/05/22 14:38 Labs: Laboratory Results - last 24 hr 03/05/22 14:38: WBC 6.7, RBC 3.44 L, Hgb 9.5 L, Hct 31.6 L, MCV 91.9, MCH 27.6, MCHC 30.1 L D, RDW Std Deviation 56.3 H, RDW Coeff of Colin 17.2 H, Plt Count 244, MPV 9.5, Immature Gran % (Auto) 0.600, Neut % (Auto) 74.3 H, Lymph % (Auto) 12.2 L, Nobles % (Auto) 10.5 H, Eos % (Auto) 1.8, Baso % (Auto) 0.6, Absolute Neuts (auto) 4.9, Absolute Lymphs (auto) 0.81 L, Nucleated RBC % 0 03/05/22 14:38: Sodium 142, Potassium 3.8, Chloride 111 H, Carbon Dioxide 25.0, Anion Gap 6, BUN 13, Creatinine 0.57, Estim Creat Clear Calc 37.24, Est GFR (MDRD) Af Amer 133, Est GFR (MDRD) Non-Af 110, BUN/Creatinine Ratio 22.7 H, Glucose 104, Calcium 9.8, Total Bilirubin 0.40, AST 19, ALT 25, Alkaline Phosphatase 158 H, Troponin I High Sens 195 H*, Total Protein 6.1 L, Albumin 2.9 L, Globulin 3.2, Albumin/Globulin Ratio 0.9, Lipase 132 03/05/22 14:45: PT 14.2, INR 1.1 03/05/22 14:45: ESR 19 03/05/22 14:45: Lactate Dehydrogenase 233, C-React Prot Ext Range 11.90 H 03/05/22 16:16: Troponin I High Sens 185 H* 03/05/22 16:50: Lactic Acid 1.0 Micro: Microbiology 03/05/22 15:05 Stool Stool Occult Blood (LEONARDO) - Final Occult Blood Positive Radiology Impression Abdomen/Pelvis CT 03/05/22 14:38 IMPRESSION: Acute diverticulitis of the sigmoid colon 1. Acute diverticulitis is present in the proximal sigmoid colon within the left lower quadrant where there is mild inflammation and pericolonic inflammatory stranding associated with thickening of the affected portion of the sigmoid colon. 2. Extensive sigmoid diverticulosis is present as well. No demonstrated free air or abscess formation. 3. Diverticula of the proximal, transverse, descending colon are also present. 4. Tiny gallstones Electronically Signed: Christophe Wilson MD at 16:14 EDT Reading Location ID and State: [facility] / [place] , Service support , Assessment & Plan Assessment/Plan (1) GI bleed: (2) Diverticulitis: PLAN: Plan 1. GI bleed -Admit to PCU -Hemoglobin stable at this time, received 3 units packed red blood cells last night in ER. -Consult GI, Dr. Friend saw patient in ER. Plan for patient to undergo EGD and colonoscopy tomorrow. -GI prep ordered -IV Protonix ordered -Normal saline 75 mL/h -Every 6 hour hemoglobin -Clear liquid diet -Occult stool positive 2. Acute diverticulitis -Continue IV Zosyn, first dose given in ER -GI consulted -Normal saline 75 mL/h 3. Elevated troponin -Likely stress-induced as patient has been anemic and does not symptomatic at this time -We will trend cardiac enzymes -Echocardiogram in a.m. 4. Hypertension/hyperlipidemia -Continue losartan -Continue atorvastatin DVT prophylaxis-SCDs This patient was seen by PHILIP Brown under the supervision of Dr. Morton. 28 minutes spent in clinical coordination of patient's plan of care. Documented by User: Dr. Ian Morton, 03/05/22 22:08 HPI - General General Date of Admission: 03/05/22 [facility] Medical History Anemia Cataracts, both eyes Flu vaccine need Gallstones Health care maintenance History of back problems Hyperlipemia Home Medications aspirin 81 mg tablet,delayed release 81 mg PO QDAY 01/08/18 [History Last Taken Unknown] cholecalciferol (vitamin D3) 25 mcg (1,000 unit) capsule 1,000 unit PO QDAY 12/21 [History Last Taken Unknown] losartan 50 mg tablet 50 mg PO DAILY #90 tabs 03/11/21 [Rx Last Taken Unknown] atorvastatin 20 mg tablet 20 mg PO DAILY #90 tabs 09/19/21 [Rx Last Taken Unknown] betamethasone valerate 0.1 % topical ointment 1 applic topical BID PRN rash #45 grams 12/31/21 [Rx Last Taken Unknown] miconazole nitrate 2 % topical powder 1 applic topical BID #90 grams 12/31/21 [Rx Last Taken Unknown] Calcium 600 600 mg PO/SL DAILY supplement 03/05/22 [History Last Taken Unknown] Allergy/AdvReac Type Severity Reaction Status Date / Time No Known Allergies Allergy Verified 03/05/22 13:03 Family History Mother Breast cancer Grandmother CVA (cerebral vascular accident) Hypertension Father Heart disease Myocardial infarction Sister Breast cancer Aunt Breast cancer Surgical History Broken ankle H/O: hysterectomy Hx of section Hx of colonoscopy Social History Smoking Status: Former smoker Tobacco: How many years used: 13 alcohol intake: current alcohol intake frequency: holidays/special occasions only Alcohol type: beer, wine and hard liquor substance use type: does not use caffeine: Yes Type: coffee what type of physical activity do you participate in: none Results Lab / Micro Data Result Diagrams: 03/05/22 14:38 03/05/22 14:38 Assessment & Plan Assessment/Plan (1) GI bleed: (2) Diverticulitis: Charges/Coding Addendum Addendum: Patient was seen and examined today independently of Kitty Romano, she came to the emergency room today at [facility] with complaints of melanotic stools, she also complains of left lateral rib pain. Work-up in the emergency room showed the patient's hemoglobin to be 9.5 (patient had been seen in the emergency room 2 days ago, and anemia was detected at that time and she was given 3 units of packed red blood cells, patient was not admitted however and was instructed to follow-up as an outpatient. EKG was performed which showed a normal sinus rhythm without evidence of acute ischemic changes, patie nt's troponin however was elevated. Rectal examination revealed Hemoccult positive stool. On examination she appeared in good health and spirits, she does not appear to be in any distress. Vital signs as documented. Skin warm and dry and without overt rashes. Neck without JVD, thyroid appears normal, trachea is midline, neck is supple. Lungs clear, normal air movement was noted. There is tenderness to palpation over the patient's left lower rib area near the midaxillary line. Heart exam notable for regular rhythm, normal sounds and absence of murmurs, rubs or gallops. Abdomen unremarkable and without evidence of organomegaly, masses, or abdominal aortic enlargement, bowel sounds are present in all 4 quadrants, no abdominal tenderness was noted. Extremities nonedematous, no cyanosis was noted, no clubbing was noted. Neuro: Cranial nerves II through XII are grossly intact, no focal motor deficits were noted, sensation to light touch and pinprick is intact, motor exam 5/5 throughout. Psych: Patient is alert and oriented x3, she does not appear anxious or depressed, she does not appear agitated. Impression: #1 elevated troponin-etiology unclear at this point, I strongly doubt that the patient has had a non-STEMI, patient will be placed in observation status on PCU, cardiac enzymes will be cycled, she will undergo an echocardiogram. Further testing may be indicated. #2 melena-etiology unclear, patient will be seen by gastroenterology and undergo an upper and lower endoscopy, PPI will be administered #[address] of the abdomen indicating possible diverticulitis-patient will be maintained on IV antibiotics, I talked with gastroenterology by phone and they were doubtful that the patient had diverticulitis. Again the patient will undergo colonoscopy tomorrow #4 essential hypertension-patient will remain on her present medications #5 hyperlipidemia-patient will remain on atorvastatin I have reviewed Kitty Romano's history and physical including her medical a ssessment and plan of care and with the above additions endorse it. Total clinical time spent by myself addressing the patient's medical issues, reviewing the data, and collaborating with the patient's care team: 42 minutes Visit Charges OBSV E&M: [id number] Initial observation care L3
[2022-03-05] MEDS: 0.9% Normal Saline 1,000 ML 75 ML IV (17:56)
[2022-03-05 21:31] LABS: Troponin-I HS 111 pg/mL (3.0-54.0)
[2022-03-05] MEDS: Bisacodyl 5 MG Tablet 20 MG PO (21:50)
[2022-03-05] MEDS: Polyethylene Glycol 3350 BOWEL PREP PO (21:51)
[2022-03-05] MEDS: Atorvastatin Calcium 20 MG Tablet PO (21:55)
[2022-03-06] VITALS (13 sets, daily range): BP systolic 119–157; BP diastolic 64–89; PULSE 78–92; RESP 16–18; TEMP 36.1–36.9; O2SAT 91–99
--- NOTE | 2022-03-06 | IMM_PTH ---
PATIENT: DIO HODGES LOC: [facility] U#:[id number] AGE/SX: 76/F ROOM: [facility] RE03/06/[address]: Dr. Brandi Romeo MD : 1945 BED: 1 DIS: 03/08/2022 SPEC #: [id number] RECD: 03/10/22 11:29 STATUS: TRINA REQ #: [id number] ОЛЬГА: 03/06/22 00:[address]: Jalen Clark DEPT: IMMUNOHISTOCHEMISTRY RECD BY: Barbara Powell ENTERED: 03/10/22 11:31 SP TYPE: IMMUNO OTHR DR: MD Dr. Elia Underwood MD Dr. Eric Turney, MD Dr. Mark Tereletsky, DO Dr. Steve Walston, DO Tyra Schlabach, SOHA-C Tissues: Gastric mucous membrane Procedures: MSH2 (add) MLH-1 (add) MSH6 (add) Anti-PMS2 (add) KI-67 (add) P53 (add) HER-2-MATILDA (initial) PHYSICIAN & [place] [id number] SPECIMEN INFORMATION: Tissue Source: Gastroesophageal junction mass Clinical Info: GI bleed, diverticulitis Specimen Number: [id number] CPT code: 98307, 58024 x6 METHODOLOGY: Deparaffinized sections of prefer/formalin-fixed tissue or PAP/DQ stained slides are incubated with monoclonal/polyclonal antibodies/oligonucleotide probes. Localization is made via biotin free immunoperoxidase method. Appropriate controls are performed and reacted as expected. Results on target cell population are indicated in the following table: RESULTS: ANTIBODY / CLONE RESULT Her-2neu (CB11) negative (0) MLH-1 (M1) positive MSH2 (25D12) positive MSH6 (44) positive PMS2 (HTF0682) positive Ki-67 (30-9) positive, high P53 (DO-7) negative These tests were developed and their performance characteristics determined by [facility]. They may not have been cleared or approved by the U.S. Food and Drug Administration. The FDA has determined that such clearance or approval is not necessary. The above immunohistochemical/dualISH markers are ordered and reviewed by the Pathologist. INTERPRETATION: Gastroesophageal junction mass, biopsy: Invasive mucinous adenocarcinoma. Result of Microsatellite Instability Study: Negative (no loss of mismatch protein; no microsatellite instability detected). SURESH:angie 03/11/2022
--- NOTE | 2022-03-06 | ESO_PTH ---
PATIENT: DIO HODGES LOC: [facility] U#:[id number] AGE/SX: 76/F ROOM: [facility] RE03/06/[address]: Dr. Brandi Romeo MD : 1945 BED: 1 DIS: 03/08/2022 SPEC #: [id number] RECD: 03/06/22 16:32 STATUS: TRINA RESimon #: [id number] ОЛЬГА: 03/06/22 00:[address]: Jalen Clark DEPT: SURGICAL PATHOLOGY RECD BY: Duane Norton ENTERED: 03/07/22 07:17 SP TYPE: ESOPH BX OTHR DR: MD Dr. Elia Underwood MD Dr. Eric Turney, MD Dr. Mark Tereletsky, DO Dr. 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 See comment. SJ:angie 03/10/2022 COMMENT Mucin stain with matched control was used in the evaluation of the specimen. Immunohistochemistry ([id number]) for microsatellite instability (mismatch repair of protein) will be performed and the results will be reported separately. Case has been reviewed in consultation with Dr. Cruz who concurs with the above diagnosis. IDC:AM MICROSCOPIC DESCRIPTION Slides are reviewed. GROSS DESCRIPTION Received in fixative is one container labeled with the patient's name and designated gastroesophageal junction mass. The specimen consists of multiple irregular fragments of light cody soft tissue that in aggregate measure 2.5 x 1 x 0.1 cm. The specimen is totally submitted in one cassette. / SURESH:angie 03/07/2022 TC:0 CPT: 35324, 90729
[2022-03-06 00:35] LABS: Hemoglobin 9.7 g/dL (12.0-15.0)
[2022-03-06] MEDS: 0.9% Normal Saline 1,000 ML 75 ML IV ×2 (06:13→20:21)
[2022-03-06 06:41] LABS: Absolute Lymphocyte Count 0.98 X10^3/uL (0.83-4.51); Absolute Neutrophil Count 5.2 X10^3/uL (2.0-7.7); Basophil# 0.04 X10^3/uL; Basophil% 0.6 % (0-1); Eosinophil# 0.24 X10^3/uL; Eosinophils% 3.4 % (0-5); Hematocrit 28.5 % (37-47); Hemoglobin 8.6 g/dL (12.0-15.0); Lymphocyte # 0.98 X10^3/ul (0.83-4.51); Mean Corp Hgb Conc 30.2 g/dL (32-36); Mean Corpuscular Volume 92.8 fL (81-99); Mean Platelet Vol. 9.3 fl (6.2-12.0); Monocyte# 0.51 X10^3/uL; Monocyte% 7.3 % (0-10); NRBC Flagged by Analyzer 0 % (0-5); Neutrophil % 74.6 % (47-70); Platelet Count 222 K/mm3 (150-450); RBC Distribution Width CV 17.4 % (11.6-14.6); RBC Distribution Width SD 57.8 fl (35.1-43.9); Red Blood Count 3.07 M/mm3 (4.2-5.4)
[2022-03-06 06:53] LABS: International Normalized Ratio 1.2; Prothrombin Time (Protime)PT. 14.7 SECONDS (11.7-14.9)
[2022-03-06 06:54] LABS: Partial Thromboplast Time 29.3 Seconds (24.1-36.2)
[2022-03-06 07:20] LABS: AST(SGOT) 16 U/L (15-37); Alanine Aminotransfer ALT/SGPT 25 U/L (13-56); Albumin, Serum 2.7 g/dL (3.2-5.0); Alkaline Phosphatase 147 U/L (45-117); Globulin 3.1 g/dL (2.2-4.2); Protein, Total 5.8 g/dL (6.4-8.2)
--- NOTE | 2022-03-06 11:45 | CASEMGMT ---
ALEXIS CLARKE assessment: Face to Face with patient for initial transition planning/care coordination assessment. ALEXIS CLARKE introduced self and role at [facility], pt voices understanding and consents to assessment. Pt is sitting up in bed in no distress on room air. Pt is A/Ox4 and answers questions appropriately.? Care providers, pharmacy,?and demographics verified. ? Presentation: Dark blood in stool states just had blood transfusion for Hgb 5.5-pt c/o pain side under ribs Admitting dx: GI bleed, elev troponin PCP: Osbaldo Specialists: None Preferred Pharmacy: [facility] Insurance: MCR A/B, [employer] Prescription Benefit:? [employer] Living Will/HPOA: Pt states has LW/HPOA and is aware that they are not on file at [facility]. Pt states her , Jd Moore, is HPOA. LNOK: Jd Moore, ; Douglas Moore, son Living Arrangements: Pt lives with on main level of 2 story home and states no concerns at home. Pt is independent with ADL's. Transportation: Pt states drives self or drives and states no transportation concerns. DME/HHC: Pt has not current DME or need for any further DME. Pt states no hx of HHC or SNF. Pt states no concerns with going home at time of discharge. Pt is retired. Pt states does not smoke cigarettes but does drink ETOH occasionally. Pt states no further concerns/needs. CM to follow for any further discharge planning/needs. Advised pt to ask for CM if any further questions/concerns/needs arise, voices understanding. Pt goal: Home ? Plan[place] ALEXIS CLARKE
[2022-03-06] MEDS: Lactated Ringers 1,000 ML 15 ML IV (15:05)
--- NOTE | 2022-03-06 16:07 | OP.EGD_ITS ---
Patient Name: Madeleine Moore Procedure Date: 03/06/2022 3:18 PM Date of : 1945 Age: 76 Procedure: Upper GI endoscopy Indications: Acute post hemorrhagic anemia, Iron deficiency anemia, Dysphagia Providers: Jalen Clark DO Medicines: Monitored Anesthesia Care Patient Profile: This is a 76 year old female. Refer to note in patient chart for documentation of history and physical. Patient has symptoms of acute abdominal cramping and chronic dysphagia. Complications: No immediate complications. Procedure: Pre-Anesthesia Assessment: - Prior to the procedure, a History and Physical was performed, and patient medications and allergies were reviewed. The patient is competent. The risks and benefits of the procedure and the sedation options and risks were discussed with the patient. All questions were answered and informed consent was obtained. Patient identification and proposed procedure were verified by the physician in the pre-procedure area. Mental Status Examination: alert and oriented. Airway Examination: normal oropharyngeal airway and neck mobility. Respiratory Examination: clear to auscultation. CV Examination: normal. Prophylactic Antibiotics: The patient does not require prophylactic antibiotics. Prior Anticoagulants: The patient has taken no previous anticoagulant or antiplatelet agents. ASA Grade Assessment: II - A patient with mild systemic disease. After reviewing the risks and benefits, the patient was deemed in satisfactory condition to undergo the procedure. The anesthesia plan was to use monitored anesthesia care (MAC). Immediately prior to administration of medications, the patient was re-assessed for adequacy to receive sedatives. The heart rate, respiratory rate, oxygen saturations, blood pressure, adequacy of pulmonary ventilation, and response to care were monitored throughout the procedure. The physical status of the patient was re-assessed after the procedure. After obtaining informed consent, the endoscope was passed under direct vision. Throughout the procedure, the patient's blood pressure, pulse, and oxygen saturations were monitored continuously. The pediatric colonoscope was introduced through the mouth, and advanced to the second part of duodenum. The upper GI endoscopy was accomplished without difficulty. The patient tolerated the procedure well. Scope In: 3:44:30 PM Scope Out: 3:58:28 PM Total Procedure Duration Time 0 hours 13 minutes 58 seconds Findings: A large, fungating and ulcerating mass with bleeding and stigmata of recent bleeding was found in the lower third of the esophagus, at the gastroesophageal junction and in the cardia, 36 cm from the incisors. The mass was partially obstructing and circumferential. Biopsies were taken with a cold forceps for histology. Verification of patient identification for the specimen was done. Estimated blood loss was minimal. A large, ulcerated, non-circumferential mass with oozing bleeding and stigmata of recent bleeding was found in the cardia. Biopsies were taken with a cold forceps for histology. Verification of patient identification for the specimen was done. Estimated blood loss was minimal. The second portion of the duodenum was normal. 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 Biopsied. 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 Biopsied. - Normal second portion of the duodenum. Recommendation: - Discharge patient to home. - Resume previous diet. - Continue present medications. - Await pathology results. - Refer to an oncologist tomorrow. Procedure Code(s): --- Professional --- 03717, Esophagogastroduodenoscopy, flexible, transoral; with biopsy, single or multiple CPT copyright 2017 [employer]. All rights reserved. The codes documented in this report are preliminary and upon talent acquisition operations manager review may be revised to meet current compliance requirements. Jalen Clark DO 03/06/2022 4:07:14 PM This report has been signed electronically. Number of Addenda: 0 Note Initiated On: 03/06/2022 3:18 PM
--- NOTE | 2022-03-06 16:08 | OP.CCLET_ITS ---
03/06/2022 Elia Roblero MD [address] [place] [address] [place] [address] Re : Upper GI endoscopy procedure for Madeleine Oscar Dear Dr. Roblero This procedure was performed on February. 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 Biopsied. 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 Biopsied. - Normal second portion of the duodenum. Recommendations : - Discharge patient to home. - Resume previous diet. - Continue present medications. - Await pathology results. - Refer to an oncologist tomorrow. My findings are described in the full procedure note, which is enclosed. If I can be of further assistance, please feel free to contact me at . Sincerely, Jalen Clark, 03/06/2022 4:07:14 PM This report has been signed electronically.
--- NOTE | 2022-03-06 16:13 | PCM.PN.HOSP ---
Subjective Subjective Follow-up on acute GI bleed: Patient was seen and examined. She continues to have star stools. She denies any chest pain, dizziness or palpitations. 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 Objective Data Objective Data Vital Signs: Vital Signs Temp Pulse Resp BP Pulse Ox O2 Del Method O2 Flow Rate 97.4 F L 92 16 121/70 H 93 Nasal Cannula 2 03/06/22 16:04 03/06/22 16:09 03/06/22 16:09 03/06/22 16:09 03/06/22 16:09 03/06/22 16:03/06/22 16:09 Oxygen Flow Rate (L/min) 2 Oxygen Delivery Method Nasal Cannula Weight: 88.5 kg Body Mass Index (BMI) 36.8 Intake & Output: Intake and Output for Last 24 Hours 03/04/22 03/05/22 03/06/22 23:59 23:59 23:59 Intake Total 270 / 2190 3710.00 / 3710.00 Balance 270 / 2190 3710.00 / 3710.00 Lab / Micro Data Result Diagrams: 03/06/22 06:20 03/05/22 14:38 Labs: Laboratory Results - last 24 hr 03/05/22 14:45: ESR 19 03/05/22 14:45: Lactate Dehydrogenase 233, C-React Prot Ext Range 11.90 H 03/05/22 16:16: Troponin I High Sens 185 H* 03/05/22 16:50: Lactic Acid 1.0 03/05/22 20:30: Troponin I High Sens 111 H 03/06/22 00:20: Hgb 9.7 L 03/06/22 06:20: WBC 7.0, RBC 3.07 L, Hgb 8.6 L, Hct 28.5 L, MCV 92.8, MCH 28.0, MCHC 30.2 L, RDW Std Deviation 57.8 H, RDW Coeff of Colin 17.4 H, Plt Count 222, MPV 9.3, Immature Gran % (Auto) 0.100, Neut % (Auto) 74.6 H, Lymph % (Auto) 14.0 L, [place] % (Auto) 7.3, Eos % (Auto) 3.4, Baso % (Auto) 0.6, Absolute Neuts (auto) 5.2, Absolute Lymphs (auto) 0.98, Nucleated RBC % 0 03/06/22 06:20: PT 14.7, INR 1.2, APTT 29.3 03/06/22 06:20: Total Bilirubin 0.50, Direct Bilirubin 0.10, AST 16, ALT 25, Alkaline Phosphatase 147 H, Total Protein 5.8 L, Albumin 2.7 L, Globulin 3.1 Micro: Microbiology 03/05/22 15:05 Stool Stool Occult Blood (LEONARDO) - Final Occult Blood Positive Radiography Diagnostic Testing: Radiology Impression Abdomen/Pelvis CT 03/05/22 14:38 IMPRESSION: Acute diverticulitis of the sigmoid colon 1. Acute diverticulitis is present in the proximal sigmoid colon within the left lower quadrant where there is mild inflammation and pericolonic inflammatory stranding associated with thickening of the affected portion of the sigmoid colon. 2. Extensive sigmoid diverticulosis is present as well. No demonstrated free air or abscess formation. 3. Diverticula of the proximal, transverse, descending colon are also present. 4. Tiny gallstones Electronically Signed: Christophe Wilson MD at 16:14 EDT Reading Location ID and State: [facility] / [place] , Service support , Echocardiogram 03/05/22 17:04 Interpretation Summary The estimated ejection fraction is 55-60 %. PRANAY 1.8 cm2 Ao max PG 19.2 mmhg Ao mean PG 10.6 mmhg Mild TR No previous study to compare Ordering Physician: Ian Morton Referring Physician: Elia Roblero Performed By: Awa Mcallister RDCS Physical Exam Narrative Physical exam: General: Alert, Oriented x3, Cooperative, No apparent distress, not pale HEENT: Atraumatic Oral: Moist Mucosa Neck: Supple Lungs: Clear to auscultation Cardiovascular: HS I+II, regular, no murmurs Abdomen: Bowel Sounds Present, Soft, Non Tender Extremities: No edema Skin: No rashes, No breakdown Neurological: Grossly intact Psych/Mental Status: Appropriate Assessment & Plan Assessment/Plan (1) GI bleed: PLAN: Plan 1. Acute blood loss anemia secondary to Acute GI bleed Admitting Hb was 5.5 on 03/03/22 Hemoglobin now is 8.6 from 9.7 We will continue to 2. Acute GI bleed secondary to esophageal CA, partially obstructing Continue on IV PPI, carafate GI, oncology and radiation oncology consulted 3. Elevated troponin secondary to #1, likely secondary to demand, trending 2D echo shows EF 55 to 60%, no wall motion abnormality 4. Hyperlipidemia, continue on statin 5. Hypertension, continue losartan 6. DVT Prophylaxis?SCDs Charges/Coding Visit Charges Inpatient E&M: 05936 Subs Hosp L2
--- NOTE | 2022-03-06 16:50 | CT_ITS ---
We are attempting to reach an attending provider to discuss findings. An addendum with communication details will be sent when the communication is complete. EXAM: CT CHEST, ABDOMEN AND PELVIS WITH INTRAVENOUS CONTRAST CLINICAL INDICATION: esophageal cancer TECHNIQUE: Helically acquired images were obtained of the chest, abdomen and pelvis with intravenous contrast. This CT exam was performed using one or more of the following dose reduction techniques: automated exposure control, adjustment of the mA and/or kV according to patient size, and/or use of iterative reconstruction technique. This report was created using [facility] technology. CONTRAST: IV 100mL Isovue-300 RADIATION DOSE: CTDIvol = 18.89 mGy, DLP = 1794.43 mGy-cm COMPARISON: CT done yesterday FINDINGS: CHEST: LUNGS AND PLEURAL SPACES: Unremarkable. No mass. No consolidation or edema. No pleural effusion or thickening. No pneumothorax. HEART: There are calcifications of the coronary arteries. Heart size is normal. No pericardial effusion. MEDIASTINUM: Unremarkable. No mediastinal or hilar adenopathy. Esophagus is unremarkable. No hiatal hernia. THYROID: Unremarkable. No thyroid lesions. ABDOMEN: LIVER: There is intrahepatic ductal dilation. Stable hepatic hypodensity. GALLBLADDER AND BILE DUCTS: Gallstone. PANCREAS: Unremarkable. No focal cystic or solid mass. SPLEEN: Unremarkable. Normal size without focal cystic or solid mass. ADRENALS: Unremarkable. No nodules. KIDNEYS AND URETERS: Unremarkable. Normal renal size and position. No hydronephrosis. STOMACH AND BOWEL: Question mild sigmoid diverticulitis. PELVIS: APPENDIX: No evidence of acute appendicitis. BLADDER: Unremarkable. REPRODUCTIVE: Unremarkable as visualized. No mass. CHEST, ABDOMEN and PELVIS: INTRAPERITONEAL SPACE: Unremarkable. No ascites or other fluid collection. No free air. BONES/JOINTS: There are degenerative changes of the shoulders. There are multi-level degenerative changes of the thoracic spine. No suspicious lytic or blastic abnormality. SOFT TISSUES: See below. VASCULATURE: There is demonstrated bilateral pulmonary embolism. No heart strain. There is no saddle embolus. There is no heart strain. There is atherosclerotic calcification of the aortic arch with tortuosity and elongation of the aortic arch and descending thoracic aorta. There are calcifications of the abdominal aorta. This is consistent for atherosclerotic disease. There is NO abdominal aortic aneurysm. Vascular workup can be obtained based on clinical correlation. There is an umbilical hernia containing fat. There is no bowel involvement. There is no incarceration. There is no findings suggesting that this is causing a bowel obstruction. The uterus is not visualized and is most likely surgically absent. No aortic dissection. LYMPH NODES: The thyroid is heterogenous. It contains nodules. This should be further evaluated with ultrasound. This can be performed as an outpatient. There is possible associated mediastinal adenopathy. Neoplasm cannot be excluded. Focal wall thickening of the GE junction and fundus of stomach. This can suggest a gastritis. However, there are multiple overlying lymph nodes in this area. Gastric neoplasm is difficult to exclude. There is also mild periaortic adenopathy. OTHER FINDINGS: Critical finding called and case discussed. CT/CT Chest, Abd, Pel w/Contrast IMPRESSION: 1. The thyroid is heterogenous. It contains nodules. This should be further evaluated with ultrasound. This can be performed as an outpatient. There is possible associated mediastinal adenopathy. Neoplasm cannot be excluded. 2. There is demonstrated bilateral pulmonary embolism. No heart strain. There is no saddle embolus. There is no heart strain. 3. Gallstone. 4. Focal wall thickening of the GE junction and fundus of stomach. This can suggest a gastritis. However, there are multiple overlying lymph nodes in this area. Gastric neoplasm is difficult to exclude. There is also mild periaortic adenopathy. 5. Question mild sigmoid diverticulitis. Electronically Signed: Bucky Watts MD at 18:19 EDT ,
[2022-03-06] MEDS: Losartan Potassium 50 MG Tablet PO (17:03)
[2022-03-06 17:45] LABS: Hematocrit 27.6 % (37-47); Hemoglobin 8.2 g/dL (12.0-15.0)
--- NOTE | 2022-03-06 18:08 | CON.PCM.ON_ITS ---
Assessment & Plan Assessment/Plan (1) Mass of esophagus: Status: Acute Code(s): K22.89 - Other specified disease of esophagus Plan: Partially obstructing mass at the GE junction described by GI as large and fun gating, as well as a mass within the cardia were identified during EGD earlier today. Pathology is pending. CT chest abdomen and pelvis was repeated this afternoon, report pending. PET/CT will be obtained in the outpatient setting for proper staging. I explained to the patient findings are concerning but we need pathology to definitively confirm diagnosis of malignancy. 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 Hemoglobin today 8.2. Patient is counseled not to begin p.o. iron as has caused GI upset in the past. T Consider Venofer in the outpatient setting. Patient to follow-up with Dr. Matos at [facility] next week to review results of pathology and discuss recommendations. Case is discussed with Dr. Matos who was in agreement with aforementioned plan. HPI Consult Data Date of Service:: 03/06/22 PCP / Referring Provider: Dr. Elia Roblero MD Attending: Dr. Brandi Romeo MD Chief Complaint Chief Complaint: Esophageal mass History of Present Illness History of Present Illness: Ms. Madeleine Moore is a very pleasant 76-year-old woman with a past medical history positive for hypertension, hyperlipidemia, type 2 diabetes who presented to the emergency department on 03/03/2022 with complaints of worsening generalized weakness and shortness of breath. Found to have hemoglobin 5.5. It appears her case was discussed with surgery was recommended that patient be supported with transfusion as she was not endorsing any epigastric?abdominal pain or bloody stools at that time. Patient was provided 3 units PRBCs discharged home with instructions to undergo upper endoscopy and colonoscopy in the outpatient setting. The very next day the patient developed tarry diarrhea and presented to [facility] ED again on 03/05/2022. A CT abdomen and pelvis with contrast was obtained, showed diffuse diverticular disease stool guaiac positive. She was subsequently admitted for management of GI bleed. Patient underwent EGD and colonoscopy earlier this afternoon, a large fungating mass was identified at the GE junction and in the cardia. Pathology is pending. Interval History Interval History: Upon entering the room patient is sitting upright on the side of the bed. Endorses approximately 15 pound weight loss in the last 6 months. Admits int ermittently she coughs after eating but is able to drink without difficulty. She is not experiencing any dizziness, chest pain, shortness of breath at the present time. Further denies headaches, nausea vomiting, abdominal pain, swelling or pain of her extremities. Describes active lifestyle and has a good support system at home by way of spouse and adult son who lives near. Advanced Directives Power of Check Processor: Yes Living Will: Yes [facility] Medical History (Updated 03/06/22 @ 18:19 by Ashely Salter NP, CUSTOMER SERVICE ATTENDANT-C) Anemia Cataracts, both eyes Flu vaccine need Gallstones Health care maintenance History of back problems Hyperlipemia 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 Home Medications aspirin 81 mg tablet,delayed release 81 mg PO QDAY 01/08/18 [History Last Taken Unknown] cholecalciferol (vitamin D3) 25 mcg (1,000 unit) capsule 1,000 unit PO QDAY 01/08/18 [History Last Taken Unknown] losartan 50 mg tablet 50 mg PO DAILY #90 tabs 03/11/21 [Rx Last Taken Unknown] atorvastatin 20 mg tablet 20 mg PO DAILY #90 tabs 09/19/21 [Rx Last Taken Unknown] betamethasone valerate 0.1 % topical ointment 1 applic topical BID PRN rash #45 grams 12/31/21 [Rx Last Taken Unknown] miconazole nitrate 2 % topical powder 1 applic topical BID #90 grams 12/31/21 [Rx Last Taken Unknown] Calcium 600 600 mg PO/SL DAILY supplement 03/05/22 [History Last Taken Unknown] Allergy/AdvReac Type Severity Reaction Status Date / Time No Known Allergies Allergy Verified 03/05/22 13:03 Family History Mother Breast cancer Grandmother CVA (cerebral vascular accident) Hypertension Father Heart disease Myocardial infarction Sister Breast cancer Aunt Breast cancer Surgical History Broken ankle H/O: hysterectomy Hx of section Hx of colonoscopy Social History Smoking Status: Former smoker Tobacco: How many years used: 13 alcohol intake: current alcohol intake frequency: holidays/special occasions only Alcohol type: beer, wine and hard liquor substance use type: does not use caffeine: Yes Type: coffee what type of physical activity do you participate in: none ROS ROS Narrative Negative except as documented in the interval HPI Physical Exam Narrative ECOG 0 Const alert, oriented x3 and no apparent distress HEENT normocephalic Eyes conjunctivae normal and no scleral icterus Neck no lymphadenopathy and supple General: trachea midline Resp clear to auscultation bilaterally Cardio regular rate, regular rhythm, S1 normal heart sound and S2 normal heart sound GI normal to inspection, nondistended, normoactive bowel sounds Extremity no clubbing, cyanosis or edema Neuro CN's II-XII intact bilaterally and moves all extremities Psych thought process normal Attitude: calm Mood & Affect: tearful Thought Process: normal thought process Vital Signs Temperature 97 F L 03/06/22 16:20 Temperature Source Temporal 03/06/22 16:20 Pulse Rate 84 03/06/22 16:20 Pulse Strength Normal (2+) 03/05/22 22:00 Respiratory Rate 16 03/06/22 16:20 Respiratory Effort Non-Labored 03/05/22 18:05 Respiratory Depth Normal 03/05/22 18:05 Respiratory Pattern Normal 03/06/22 16:04 Blood Pressure 145/72 H 03/06/22 16:20 Blood Pressure Mean 96 03/06/22 16:20 Blood Pressure Source Monitor 03/06/22 16:20 Blood Pressure Position Semi-Fowlers 03/06/22 16:20 Blood Pressure Location Left Arm 03/06/22 16:20 Pulse Ox 94 03/06/22 16:20 Oxygen Delivery Method Room Air 03/06/22 16:20 Oxygen Flow Rate (L/min) 2 03/06/22 16:14 Laboratory Results - last 24 hr 03/05/22 20:30: Troponin I High Sens 111 H 03/06/22 00:20: Hgb 9.7 L 03/06/22 06:20: WBC 7.0, RBC 3.07 L, Hgb 8.6 L, Hct 28.5 L, MCV 92.8, MCH 28.0, MCHC 30.2 L, RDW Std Deviation 57.8 H, RDW Coeff of Colin 17.4 H, Plt Count 222, MPV 9.3, Immature Gran % (Auto) 0.100, Neut % (Auto) 74.6 H, Lymph % (Auto) 14.0 L, [place] % (Auto) 7.3, Eos % (Auto) 3.4, Baso % (Auto) 0.6, Absolute Neuts (auto) 5.2, Absolute Lymphs (auto) 0.98, Nucleated RBC % 0 03/06/22 06:20: PT 14.7, INR 1.2, APTT 29.3 03/06/22 06:20: Total Bilirubin 0.50, Direct Bilirubin 0.10, AST 16, ALT 25, Alkaline Phosphatase 147 H, Total Protein 5.8 L, Albumin 2.7 L, Globulin 3.1 03/06/22 17:30: Hgb 8.2 L, Hct 27.6 L Microbiology 03/05/22 15:05 Stool Stool Occult Blood (LEONARDO) - Final Occult Blood Positive Diagnostic Data Abdomen/Pelvis CT 03/05/22 14:38 IMPRESSION: Acute diverticulitis of the sigmoid colon 1. Acute diverticulitis is present in the proximal sigmoid colon within the left lower quadrant where there is mild inflammation and pericolonic inflammatory stranding associated with thickening of the affected portion of the sigmoid colon. 2. Extensive sigmoid diverticulosis is present as well. No demonstrated free air or abscess formation. 3. Diverticula of the proximal, transverse, descending colon are also present. 4. Tiny gallstones Electronically Signed: Christophe Wilson MD at 16:14 EDT , Echocardiogram 03/05/22 17:04 Interpretation Summary The estimated ejection fraction is 55-60 %. PRANAY 1.8 cm2 Ao max PG 19.2 mmhg Ao mean PG 10.6 mmhg Mild TR No previous study to compare Ordering Physician: Ian Morton Referring Physician: Elia Roblero Performed By: Awa Mcallister RDCS
--- NOTE | 2022-03-06 19:21 | VDLE_ITS ---
Reason For Study: Pulmonary embolism RIGHT LEFT GSV is normal. GSV is normal. CFV is compressible, spontaneous, competent CFV is compressible, spontaneous, competent, and demonstrates pulsatile venous flow. and demonstrates pulsatile venous flow. FV is compressible, spontaneous, competent FV is compressible, spontaneous, competent and demonstrates pulsatile venous flow. and demonstrates pulsatile venous flow. POP V is compressible, spontaneous, competent POP V is compressible, spontaneous, competent and demonstrates pulsatile venous flow. and demonstrates pulsatile venous flow. T/P Trunk is compressible. T/P Trunk is compressible. PTV is compressible. PTV is compressible. RT PerV is compressible. Acute deep vein thrombosis is noted in the Procedure left peroneal vein. This is a venous duplex using B-mode, color flow and spectral Doppler. Exam performed portable in patient room. A preliminary report was called and/or faxed to RN. VL/Venous Duplex US - Francesco Extrem Interpretation Summary Acute deep vein thrombosis is noted in the left peroneal vein. Deep veins of the right lower extremity are patent and compressible segmentally . There is no evidence of right lower extremity deep vein thrombosis. The right [place] vein appears patent and compressible segmentally. Ordering Physician: Ian Morton Referring Physician: Elia Roblero Performed By: Marisol Eaton RVT
--- NOTE | 2022-03-06 19:45 | NURSING ---
received report from [facility] nurse, assumed care for patient
[2022-03-06] MEDS: 0.9% Saline Lock 10 ML Syringe IV (20:30)
[2022-03-06] MEDS: Atorvastatin Calcium 20 MG Tablet PO (22:29)
[2022-03-06] MEDS: Sucralfate 1 GM Tablet PO (22:29)
[2022-03-06 23:45] LABS: Hematocrit 30.1 % (37-47); Hemoglobin 9.1 g/dL (12.0-15.0)
[2022-03-07] VITALS (16 sets, daily range): BP systolic 120–152; BP diastolic 59–74; PULSE 77–95; RESP 16–18; TEMP 36.2–37.1; O2SAT 93–100; BMI 36.8
[2022-03-07 06:23] LABS: Absolute Lymphocyte Count 0.73 X10^3/uL (0.83-4.51); Absolute Neutrophil Count 4.4 X10^3/uL (2.0-7.7); Basophil# 0.05 X10^3/uL; Basophil% 0.8 % (0-1); Eosinophil# 0.23 X10^3/uL; Eosinophils% 3.9 % (0-5); Hematocrit 29.4 % (37-47); Hemoglobin 8.5 g/dL (12.0-15.0); Lymphocyte # 0.73 X10^3/ul (0.83-4.51); Lymphocyte % 12.3 % (19-41); Mean Corp Hgb Conc 28.9 g/dL (32-36); Mean Corpuscular Hgb 27.9 pg (27.0-32.0); Mean Corpuscular Volume 96.4 fL (81-99); Mean Platelet Vol. 9.5 fl (6.2-12.0); Monocyte# 0.45 X10^3/uL; Monocyte% 7.6 % (0-10); NRBC Flagged by Analyzer 0 % (0-5); Neutrophil # 4.44 X10^3/uL (2.7-7.7); Neutrophil % 74.9 % (47-70); Platelet Count 197 K/mm3 (150-450); RBC Distribution Width CV 17.4 % (11.6-14.6); RBC Distribution Width SD 59.9 fl (35.1-43.9); Red Blood Count 3.05 M/mm3 (4.2-5.4); White Blood Count 5.9 K/mm3 (4.4-11.0)
[2022-03-07 06:39] LABS: ALB/GLOB Ratio 0.9 RATIO (0.9-2.4); AST(SGOT) 25 U/L (15-37); Alanine Aminotransfer ALT/SGPT 36 U/L (13-56); Albumin, Serum 2.6 g/dL (3.2-5.0); Alkaline Phosphatase 166 U/L (45-117); Anion Gap 5 (5-15); BUN 8 mg/dL (7-18); BUN/Creat Ratio 13.5 RATIO (10-20); Calcium,Total 9.3 mg/dL (8.5-10.1); Chloride 111 mmol/L (98-107); Creatinine, Serum 0.59 mg/dL (0.55-1.02); EST Glomerular Filtration Rate 105 mL/min (>60); Est Glom Filt Rate - Afr Amer 127 mL/min (>60); Estimated Creatinine Clearance 37.24 ml/min; Glucose 136 mg/dL (74-106); Potassium 4.2 mmol/L (3.5-5.1); Protein, Total 5.6 g/dL (6.4-8.2); Sodium Level 143 mmol/L (136-145)
[2022-03-07] MEDS: Sucralfate 1 GM Tablet PO ×4 (06:44→21:39)
[2022-03-07 08:16] LABS: Platelet Count 197 K/mm3 (150-450); Reticulocyte Count 5.34 % (0.5-1.5)
[2022-03-07 08:20] LABS: Ferritin 13 ng/mL (8-252); Iron 24 ug/dL (50-170); Iron Binding Capacity,Total 388 ug/dL (250-450); PERCENT IRON SATURATION 6.2 % (15.0-55.0)
[2022-03-07] MEDS: Losartan Potassium 50 MG Tablet PO (09:35)
[2022-03-07] MEDS: Lidocaine 5% Patch 2 PATCH TOPICAL (10:38)
--- NOTE | 2022-03-07 10:55 | RAO.CON ---
Intake Vital Signs 03/03/22 18:14 03/05/22 13:03 03/05/22 16:44 03/05/22 17:04 03/05/22 17:36 03/05/22 17:40 03/05/22 17:40 03/05/22 19:00 03/05/22 21:17 03/05/22 21:17 03/05/22 23:00 03/06/22 00:52 03/06/22 03:00 03/06/22 03:00 03/06/22 04:10 03/06/22 06:59 03/06/22 08:00 03/06/22 08:00 03/06/22 11:00 03/06/22 11:39 03/06/22 16:04 03/06/22 16:09 03/06/22 16:14 03/06/22 16:19 03/06/22 16:20 03/06/22 19:01 03/06/22 20:02 03/07/22 02:03 03/07/22 03:00 03/07/22 06:50 03/07/22 07:47 Height 5 ft 2 in 5 ft 1 in 5 ft 1 in Weight: 194 lb 7.163 oz 195 lb 1.745 oz 195 lb 1.745 oz BMI 36.7 36.8 BP 160/81 H 142/74 H 151/78 H 130/78 H 124/65 H 124/65 H 137/64 H 137/74 H 154/76 H 154/76 H 157/89 H 127/71 H 121/70 H 143/75 H 119/76 145/72 H 148/74 H 152/66 H 120/74 Position Semi-Fowlers Semi-Fowlers Semi-Fowlers Sitting Sitting Semi-Fowlers Semi-Fowlers Semi-Fowlers Semi-Fowlers Semi-Fowlers Left Lateral Semi-Fowlers Respiration 12 18 14 18 18 18 18 18 16 16 16 16 16 16 16 16 17 17 18 Pulse 70 84 89 86 85 90 87 87 86 88 85 88 86 83 83 78 82 92 92 82 81 84 83 85 91 92 95 90 Temp 96.8 F L 98.1 F 98 F 97.8 F 98.3 F 98.3 F 98.0 F 98.0 F 98.1 F 98.1 F 98.2 F 97.4 F L 97 F L 98.5 F 97.6 F L 98.8 F Pulse Oximetry (%) 94 97 99 99 95 95 95 95 96 96 96 91 93 99 94 94 95 96 94 Oxygen Flow Rate (L/min) 2 2 Intake Visit Reasons: GI BLEED Chief Complaint: Esophageal mass Allergies No Known Allergies Allergy (Verified 03/05/22 13:03) Medications aspirin 81 mg tablet,delayed release 81 mg PO QDAY 01/08/18 [History Confirmed 03/05/22] cholecalciferol (vitamin D3) 25 mcg (1,000 unit) capsule 1,000 unit PO QDAY 01/08/18 [History Confirmed 03/05/22] losartan 50 mg tablet 50 mg PO DAILY #90 tabs 03/11/21 [Rx Confirmed 03/05/22] atorvastatin 20 mg tablet 20 mg PO DAILY #90 tabs 09/19/21 [Rx Confirmed 03/05/22] betamethasone valerate 0.1 % topical ointment 1 applic topical BID PRN rash #45 grams 12/31/21 [Rx Confirmed 03/05/22] miconazole nitrate 2 % topical powder 1 applic topical BID #90 grams 12/31/21 [Rx Confirmed 03/05/22] Calcium 600 600 mg PO/SL DAILY supplement 03/05/22 [History Confirmed 03/05/22] Home Medications Acetaminophen (Acetaminophen 325 Mg Tablet) 650 mg PO Q6H PRN PRN PRN Reason: Pain Score 1-10/Temp > 100.7 F Atorvastatin Calcium (Atorvastatin Calcium 20 Mg Tablet) 20 mg PO QHS [facility] Last Admin: 03/06/22 22:29 Dose: 20 mg Sodium Chloride () 500 mls @ 15 mls/hr IV PRN PRN PRN Reason: Blood Transfusion Sodium Chloride () 250 mls @ 15 mls/hr IV .[id number] PRN PRN Reason: Saline Flush Last Infusion: 03/07/22 06:43 Dose: Infused Sodium Chloride () 250 mls @ 15 mls/hr IV .[id number] PRN PRN Reason: Additional IVPB Infusion Last Infusion: 03/07/22 06:44 Dose: Infused Lactated Ringer's () 1,000 mls @ 15 mls/hr IV .Q48H [facility] Last Infusion: 03/06/22 16:18 Dose: Infused Octreotide Acetate 0.5 mg/ (Dextrose) 251 mls @ 12.5 mls/hr CONT INF .Q20H5M [facility] Last Admin: 03/06/22 20:52 Dose: 12.5 mls/hr Pantoprazole Sodium 80 mg/ (Sodium Chloride) 100 mls @ 10 mls/hr CONT INF Q10H [facility] Last Infusion: 03/07/22 09:45 Dose: 0 mls/hr Lidocaine (Lidocaine 5% Patch) 2 patch TOPICAL DAILY [facility]; Protocol Last Admin: 03/07/22 10:38 Dose: 2 patch Losartan Potassium (Losartan Potassium 50 Mg Tablet) 50 mg PO DAILY [facility] Last Admin: 03/07/22 09:35 Dose: 50 mg Ondansetron HCl (Ondansetron 4 Mg/2 Ml Vial) 4 mg IV Q8H PRN PRN PRN Reason: NAUSEA/VOMITING Sodium Chloride (0.9% Saline Lock 10 Ml Syringe) 10 - 40 ml IV UD PRN PRN Reason: SALINE FLUSH Last Admin: 03/06/22 20:30 Dose: 10 ml Sucralfate (Sucralfate 1 Gm Tablet) 1 gm PO 1HR_ACHS [facility] Last Admin: 03/07/22 10:38 Dose: 1 gm Discontinued Medications Bisacodyl (Bisacodyl 5 Mg Tablet) 20 mg PO 1400 ONE Stop: 03/05/22 21:01 Last Admin: 03/05/22 21:50 Dose: 20 mg Pantoprazole Sodium 40 mg/ (Sodium Chloride) 110 mls @ 330 mls/hr IV X1 ONE Stop: 03/05/22 14:59 Last Infusion: 03/05/22 15:38 Dose: Infused Piperacillin Sod/Tazobactam (Sod 3.375 gm/ Sodium Chloride) 50 mls @ 100 mls/hr IV X1 ONE Stop: 03/05/22 17:15 Last Infusion: 03/05/22 17:46 Dose: Infused Sodium Chloride () 1,000 mls @ 75 mls/hr IV .[id number] [facility] Last Infusion: 03/07/22 09:30 Dose: Infused Pantoprazole Sodium 40 mg/ (Sodium Chloride) 110 mls @ 330 mls/hr IV Q12 [facility] Last Infusion: 03/06/22 11:54 Dose: Infused Piperacillin Sod/Tazobactam (Sod 3.375 gm/ Sodium Chloride) 50 mls @ 12.5 mls/hr IV Q8 [facility] Last Infusion: 03/06/22 18:02 Dose: Infused Ferric Sodium Gluconate Complex 250 mg/ Sodium Chloride 270 mls @ 135 mls/hr IV X1 ONE Stop: 03/07/22 10:59 Last Admin: 03/07/22 09:29 Dose: 135 mls/hr Iopamidol (Contrast Allergy Safety Check) 0 ml IV X1 [facility] Last Admin: 03/05/22 15:43 Dose: Not Given Polyethylene Glycol (Polyethylene Glycol 3350 Bowel Prep) 0 bottle PO DAILY@1600 ONE Stop: 03/05/22 21:01 Last Increment: 03/05/22 21:51 Dose: 238 gm Incremental Dosing Total Given: 238 gm [facility] Medical History (Updated 03/06/22 @ 18:19 by Ashely Salter NURSE PRACTITIONER MANAGER, NURSE PRACTITIONER MANAGER-C) Anemia Cataracts, both eyes Flu vaccine need Gallstones Health care maintenance History of back problems Hyperlipemia 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 Home Medications aspirin 81 mg tablet,delayed release 81 mg PO QDAY 01/08/18 [History Last Taken Unknown] cholecalciferol (vitamin D3) 25 mcg (1,000 unit) capsule 1,000 unit PO QDAY 01/08/18 [History Last Taken Unknown] losartan 50 mg tablet 50 mg PO DAILY #90 tabs 03/11/21 [Rx Last Taken Unknown] atorvastatin 20 mg tablet 20 mg PO DAILY #90 tabs 09/19/21 [Rx Last Taken Unknown] betamethasone valerate 0.1 % topical ointment 1 applic topical BID PRN rash #45 grams 12/31/21 [Rx Last Taken Unknown] miconazole nitrate 2 % topical powder 1 applic topical BID #90 grams 12/31/21 [Rx Last Taken Unknown] Calcium 600 600 mg PO/SL DAILY supplement 03/05/22 [History Last Taken Unknown] Allergy/AdvReac Type Severity Reaction Status Date / Time No Known Allergies Allergy Verified 03/05/22 13:03 Family History Mother Breast cancer Grandmother CVA (cerebral vascular accident) Hypertension Father Heart disease Myocardial infarction Sister Breast cancer Aunt Breast cancer Surgical History Broken ankle H/O: hysterectomy Hx of section Hx of colonoscopy Social History Smoking Status: Former smoker Tobacco: How many years used: 13 alcohol intake: current alcohol intake frequency: holidays/special occasions only Alcohol type: beer, wine and hard liquor substance use type: does not use caffeine: Yes Type: coffee what type of physical activity do you participate in: none Referring Provider: Juma Clark, Diagnosis: Madeleine Moore is a 76-year-old female who has a large fungating and ulcerating mass located in the lower third of the esophagus with extension into the gastric cardia and on imaging has likely nonregional adenopathy which may represent metastatic disease and potentially liver lesions status post EGD and biopsies (03/06/2022) and CT chest abdomen/pelvis (03/06/2022). History of Present Illness: 03/03/2022: Patient presented to the emergency room and found to have anemia with a hemoglobin of 5.5.? Patient received 3 units of packed red blood cells. 03/05/2022: Patient presented to the emergency room after having melanotic stools and also having some left upper quadrant abdominal discomfort. 03/06/2022: Patient completed EGD and a large fungating and ulcerating mass with bleeding and stigmata of recent bleeding was found in the lower third of the esophagus at the esophageal junction and in the gastric cardia measuring at about 36 cm from the incisors.? The mass was partially obstructing and circumferential.? Biopsies were taken.? A large ulcerated noncircumferential mass with oozing bleeding and stigmata of recent bleeding was found in the gastric cardia and biopsies were taken of this lesion.? Duodenum was normal. 03/06/2022: Patient completed CT chest/abdomen/pelvis with contrast.? Thyroid is heterogeneous with nodules and recommend further evaluation with ultrasound.? There is potential mediastinal adenopathy noted and neoplasm cannot be excluded.? There is bilateral pulmonary embolus with no evidence of heart strain and no saddle embolus.? There is focal wall thickening of the GE junction in the fundus of the stomach and neoplasm is difficult to exclude.? There is evidence for perigastric adenopathy as well as mild periaortic adenopathy. Radiation Treatment History: No prior history of radiation therapy. No pacemaker. No diagnosis of radiosensitizing comorbidity. Interval History: Patient was seen in the hospital as a new consultation. She reports having increased swallowing difficulties dating back to about spring 2021. She has had intermittent dysphagia where food has a difficult time getting down and has some discomfort with swallowing but eventually she has noted that all food and drink passes and she does not have regurgitation or nausea/vomiting. She denies hematemesis. She is eating a regular diet but has lost about 15 pounds over the last 6 months. She has had increased fatigue over the last few weeks and more recently some increase in shortness of breath and also had some black stools in the last couple of days which led her to come back to the emergency room. She does have some new pain in her left ribs over the last 6 to 12 months but otherwise denies having any new discomfort anywhere in her body, this pain is about 5/10 and she does not take pain medication. She denies rectal pain or red blood in her stool. She also reports having a fullness in her neck for an unknown period of time. She denies cough and her shortness of breath is well controlled at this time. She denies headache, vision changes, focal weakness/numbness. Prior to coming to the hospital she was completing ADLs without much difficulty but did have fairly significant fatigue. She denies having other problems or concerns at this time. Review of Systems: A 12-point review of systems was completed and was negative except for what is noted in the HPI/Interval History and by the nurse. Physical Exam: Weight: 195 lbs ECO KAR[place]FSKY SCORE: 70% CONSTITUTIONAL: Well-developed, well-nourished, and in no apparent distress. NECK: Supple, thyromegaly noted, and non-tender. Trachea midline. No cervical or supraclavicular adenopathy noted. CARDIAC: Regular rate and rhythm. Normal S1, S2. No murmurs, rubs, or gallops. PULMONARY/CHEST: Lungs are clear to auscultation and percussion bilaterally. No wheezes, rhonchi, or crackles noted. No increased work of breathing. Pain with palpation involving lower left ribs ABDOMINAL: Abdomen soft, non-tender, non-distended. No hepatomegaly. Normoactive bowel sounds in all four quadrants. No guarding, rebound. BACK: Straight and aligned. No CVA tenderness. Axial skeleton non-tender to percussion. EXTREMITIES: Full range of motion in all four extremities. No evidence of edema. NEUROLOGICAL EXAM: Alert and oriented x 3. Answers questions and follows commands appropriately. Cranial nerves II through XII are grossly intact. No focal neurological deficit. Speech is fluent. Muscle strength is 5/5 in all muscle groups. Gait and posture without abnormality. PSYCHIATRIC: Appropriate mood and affect for the clinical situation. Imaging: As per HPI Laboratory Data: 03/07/2022: Hemoglobin 8.5, iron 24, iron saturation 6.2, albumin 2.6, otherwise unremarkable Assessment & Plan Assessment/Plan (1) Mass of esophagus: PLAN: Assessment: Madeleine Moore is a 76-year-old female who has a large fungating and ulcerating mass located in the lower third of the esophagus with extension into the gastric cardia and on imaging has likely nonregional adenopathy which may represent metastatic disease and potentially liver lesions status post EGD and biopsies (03/06/2022) and CT chest abdomen/pelvis (03/06/2022). Plan: Patient was seen for consultation in her hospital room. At baseline she has a fairly good performance status but does currently have increased dysphagia and weight loss of about 15 pounds as well as occasional black stools and fatigue. Symptoms are currently well controlled and hemoglobin appears stable, she has not had any black stools over the last 12 hours. 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 Pathology is pending but this lesion appears to have arisen in a background of Driver's esophagus and this would suggest that is likely an adenocarcinoma, but no final pathology has been confirmed and certainly there are other potential neoplasms that this could represent.? We reviewed the findings of the CT chest/abdomen/pelvis with contrast demonstrating the primary lesion in the distal esophagus as well as disease involving the upper portions of the stomach, there is also evidence for concerning adenopathy in the perigastric and periaortic areas extending down to the level of the kidneys as well as mediastinal adenopathy extending all the way up into the supraclavicular area on the left.? Within the liver there appears to be evidence for 2 hypodense lesions, one more centrally appears to be a cyst and one more inferior and anteriorly is uncertain, discussed with radiology and suggestion was to consider US of this area.? Other findings include bilateral PEs. 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 I explained that in general we would prefer to have PET scan completed to complete more accurate staging and better rule out metastatic disease prior to committing to a course of curative therapy.? We did review options for try modality therapy including chemoradiation followed by surgery as the most likely curative option, this is also the most aggressive option and would require her to be cleared for surgery and chemotherapy prior to starting.? We also reviewed options of more definitive chemoradiation, this may provide some duration of disease control but very unlikely to provide a curative therapy for local regional disease given the high risk of recurrence without surgery.? We also reviewed options for completing palliative radiation therapy to the mass to slow down her bleeding and provide some disease control and then consider whether she is a candidate for systemic therapy.? Given the very concerning appearance of the widespread jeet disease I think it is very likely she has metastatic disease and recommended palliative radiation therapy followed by systemic therapy, we reviewed the preference to have a PET scan but the likelihood that we cannot get that till she is discharged and outpatient.? Bleeding is stable so urgent treatment is not needed but will plan to complete CT simulation and treatment planning in the event we will need to start urgently if bleeding resumes. I reviewed the logistics of radiation therapy which would include CT simulation with contrast and 4D CT scan, treatment planning, and then likely approximately 10-15 fractions of radiation therapy delivered daily with weekly physician visits.? The risks, benefits, and alternatives to radiation therapy were discussed in detail and all questions and concerns were addressed.? I reviewed the potential acute and chronic toxicities from radiation therapy to the lower esophagus and this would include but is not limited to skin irritation, fatigue, esophagitis, nausea/vomiting, anorexia, weight loss, pneumonitis, pericarditis, esophageal stricture, lung fibrosis and worsening lung function, increased risk of cardiac event (valvular disease, CHF, NM), and secondary cancer.? Following our full discussion the patient was in agreement with pursuing chemoradiation therapy and informed consent was obtained.? We will complete CT simulation today and initiate treatment planning and tentatively plan to start palliative radiation early next week pending her biopsies and further work-up.? Patient was instructed to call with any further questions or concerns in the interim. Thank you for allowing me to participate in the management and care of your patient. If I may answer any questions in the interim, please do not hesitate to contact me at any time. Arben Puckett DO, MS Studio Artist, Department of Radiation Oncology [facility] Coding Level of Care Code Off vis,new,level 5 Exam Problem Focused Diagnoses Mass of esophagus K22.89
--- NOTE | 2022-03-07 13:24 | PCM.PN.HOSP ---
Subjective Subjective Follow-up on acute GI bleed: Patient was seen and examined. CT of chest/abdomen/pelvis showed bilateral PE, focal thickening of the GE junction stomach fundus of the stomach with multiple overlying lymph nodes and periaortic adenopathy. Patient did not require oxygen overnight. She was not anticoagulated for fear of worsening GI bleed. Vascular surgery was consulted for IVC filter placement this afternoon. Doppler ultrasound of the lower extremity shows left peroneal vein DVT. Oncology and radiation oncology have been consulted and outpatient plan in place for early next week. Objective Data Objective Data Vital Signs: Vital Signs Temp Pulse Resp BP Pulse Ox O2 Del Method O2 Flow Rate 98.8 F 90 18 120/74 94 Room Air 2 03/07/22 07:47 03/07/22 07:47 03/07/22 07:47 03/07/22 07:47 03/07/22 07:47 03/07/22 07:53 03/06/22 16:14 Oxygen Flow Rate (L/min) 2 Oxygen Delivery Method Room Air Weight: 88.5 kg Body Mass Index (BMI) 36.8 Intake & Output: Intake and Output for Last 24 Hours 03/05/22 03/06/22 03/07/22 23:59 23:59 23:59 Intake Total 270 / 2190 4842.75 / 4842.75 1486.75 / 1486.75 Output Total 0 / 0 Balance 270 / 2190 4842.75 / 4842.75 1486.75 / 1486.75 Lab / Micro Data Result Diagrams: 03/07/22 06:00 03/07/22 06:00 Labs: Laboratory Results - last 24 hr 03/06/22 17:30: Hgb 8.2 L, Hct 27.6 L 03/06/22 23:15: Hgb 9.1 L, Hct 30.1 L 03/07/22 06:00: WBC 5.9, RBC 3.05 L, Hgb 8.5 L, Hct 29.4 L, MCV 96.4, MCH 27.9, MCHC 28.9 L, RDW Std Deviation 59.9 H, RDW Coeff of Colin 17.4 H, Plt Count 197, MPV 9.5, Immature Gran % (Auto) 0.500, Neut % (Auto) 74.9 H, Lymph % (Auto) 12.3 L, [place] % (Auto) 7.6, Eos % (Auto) 3.9, Baso % (Auto) 0.8, Absolute Neuts (auto) 4.4, Absolute Lymphs (auto) 0.73 L, Nucleated RBC % 0 03/07/22 06:00: Sodium 143, Potassium 4.2, Chloride 111 H, Carbon Dioxide 27.0, Anion Gap 5, BUN 8, Creatinine 0.59, Estim Creat Clear Calc 37.24, Est GFR (MDRD) Af Amer 127, Est GFR (MDRD) Non-Af 105, BUN/Creatinine Ratio 13.5, Glucose 136 H, Calcium 9.3, Total Bilirubin 0.40, AST 25, ALT 36, Alkaline Phosphatase 166 H, Total Protein 5.6 L, Albumin 2.6 L, Globulin 3.0, Albumin/Globulin Ratio 0.9 03/07/22 06:00: Retic Count 5.34 H, Immature Retic Fraction 35.70 H, Retic Hgb Equivalent 24.0 L 03/07/22 06:00: Iron 24 L, TIBC 388, Iron Saturation 6.2 L, Ferritin 13 Micro: Microbiology 03/05/22 15:05 Stool Stool Occult Blood (LEONARDO) - Final Occult Blood Positive Radiography Diagnostic Testing: Radiology Impression Chest/Abdomen/Pelvis CT 03/06/22 16:50 IMPRESSION: 1. The thyroid is heterogenous. It contains nodules. This should be further evaluated with ultrasound. This can be performed as an outpatient. There is possible associated mediastinal adenopathy. Neoplasm cannot be excluded. 2. There is demonstrated bilateral pulmonary embolism. No heart strain. There is no saddle embolus. There is no heart strain. 3. Gallstone. 4. Focal wall thickening of the GE junction and fundus of stomach. This can suggest a gastritis. However, there are multiple overlying lymph nodes in this area. Gastric neoplasm is difficult to exclude. There is also mild periaortic adenopathy. 5. Question mild sigmoid diverticulitis. Electronically Signed: Bucky Watts MD at 18:19 EDT , ADDENDUM: 03/06/22 093 IMPRESSION: 1. The thyroid is heterogenous. It contains nodules. This should be further evaluated with ultrasound. This can be performed as an outpatient. There is possible associated mediastinal adenopathy. Neoplasm cannot be excluded. 2. There is demonstrated bilateral pulmonary embolism. No heart strain. There is no saddle embolus. There is no heart strain. 3. Gallstone. 4. Focal wall thickening of the GE junction and fundus of stomach. This can suggest a gastritis. However, there are multiple overlying lymph nodes in this area. Gastric neoplasm is difficult to exclude. There is also mild periaortic adenopathy. 5. Question mild sigmoid diverticulitis. N.B. : The above Results were Read Back by Bucky Watts MD to Herman Rodriguez RN, and understanding confirmed on 03/06/2022 18:59:35 (ET). Electronically Signed: Bucky Watts MD at 18:19 EDT Reading Location ID and State: [facility] / [place] , Service support , Physical Exam Narrative Physical exam: General: Alert, Oriented x3, Cooperative, No apparent distress, not pale HEENT: Atraumatic Oral: Moist Mucosa Neck: Supple Lungs: Clear to auscultation Cardiovascular: HS I+II, regular, no murmurs Abdomen: Bowel Sounds Present, Soft, Non Tender Extremities: No edema Skin: No rashes, No breakdown Neurological: Grossly intact Psych/Mental Status: Appropriate Assessment & Plan Assessment/Plan (1) GI bleed: PLAN: Plan 1. Acute blood loss anemia secondary to Acute GI bleed Previous Hb was 5.5 on 03/03/22 Hemoglobin has stayed stable at 8.5 Will repeat blood work in a.m. 2. Acute GI bleed secondary to esophageal CA, partially obstructing at the GE junction and at the cardia Continue on IV PPI, carafate GI, oncology and radiation oncology consulted 3. Esophageal CA, partially obstructing at GE junction and in the cardia, s/p biopsy Oncology and radiation oncology consulted Outpatient management recommended 4. Elevated troponin secondary to #1, likely secondary to demand, trending 2D echo shows EF 55 to 60%, no wall motion abnormality 5. Hyperlipidemia, continue on statin 6. Hypertension, continue losartan 7. DVT Prophylaxis?SCDs Charges/Coding Visit Charges Inpatient E&M: 15337 Subs Hosp L2
--- NOTE | 2022-03-07 16:51 | EX.PCM.CON.S ---
Assessment & Plan Assessment/Plan (1) Pulmonary embolism: PLAN: -current contraindication to anticoagulation -though only infrapopliteal DVT remains, she is still at risk for further embolic event particularly if it were to propagate -appropriate for IVC filter; place today in label pinker -risks and benefits discussed HPI Consult Data Date of Consult: 03/07/22 HPI Narrative HPI Narrative: DIO HODGES, is a 76 F who presents with GI bleed, found to have esophageal mass suspicious for malignancy. Staging imaging revealed incident PE that appear fairly acute. She denies CP/SOB and is on RA. Venous duplex revealed peroneal DVT. FOR[facility]LY [facility] Medical History (Updated 03/07/22 @ 16:[address] 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 Home Medications aspirin 81 mg tablet,delayed release 81 mg PO QDAY 01/08/18 [History Last Taken Unknown] cholecalciferol (vitamin D3) 25 mcg (1,000 unit) capsule 1,000 unit PO QDAY 01/08/18 [History Last Taken Unknown] losartan 50 mg tablet 50 mg PO DAILY #90 tabs 03/11/21 [Rx Last Taken Unknown] atorvastatin 20 mg tablet 20 mg PO DAILY #90 tabs 09/19/21 [Rx Last Taken Unknown] betamethasone valerate 0.1 % topical ointment 1 applic topical BID PRN rash #45 grams 12/31/21 [Rx Last Taken Unknown] miconazole nitrate 2 % topical powder 1 applic topical BID #90 grams 12/31/21 [Rx Last Taken Unknown] Calcium 600 600 mg PO/SL DAILY supplement 03/05/22 [History Last Taken Unknown] Allergy/AdvReac Type Severity Reaction Status Date / Time No Known Allergies Allergy Verified 03/05/22 13:03 Family History Mother Breast cancer Grandmother CVA (cerebral vascular accident) Hypertension Father Heart disease Myocardial infarction Sister Breast cancer Aunt Breast cancer Surgical History Broken ankle H/O: hysterectomy Hx of section Hx of colonoscopy Social History Smoking Status: Former smoker Tobacco: How many years used: 13 alcohol intake: current alcohol intake frequency: holidays/special occasions only Alcohol type: beer, wine and hard liquor substance use type: does not use caffeine: Yes Type: coffee what type of physical activity do you participate in: none Physical Exam Const alert, oriented x3, no apparent distress and healthy appearing General Appearance: cooperative; Negative for combative or lethargic Orientation / Consciousness: awake Exam Limitations: no limitations HEENT Head and Scalp: normocephalic and atraumatic Eyes EOMs intact bilaterally General Eye: normal appearance of both eyes Neck full ROM and no lymphadenopathy General: trachea midline Resp normal respiratory effort and no use of accessory muscles Effort and Inspection: Negative for labored, stridor or audible wheezes Cardio regular rate and regular rhythm Peripheral Pulses: femoral pulses present Back/Spine Cervical Spine: cervical ROM normal Extremity full ROM, normal capillary refill and no clubbing, cyanosis or edema Skin no rashes or lesions noted and no wounds Neuro oriented x3, CN's II-XII intact bilaterally, no focal motor deficits and no sensory deficits noted Psych thought process normal, cooperative, affect normal, speech normal and activity/motor behavior normal Lab / Micro Data Result Diagrams: 03/07/22 06:00 03/07/22 06:00 Labs: Laboratory Results - last 24 hr 03/06/22 17:30: Hgb 8.2 L, Hct 27.6 L 03/06/22 23:15: Hgb 9.1 L, Hct 30.1 L 03/07/22 06:00: WBC 5.9, RBC 3.05 L, Hgb 8.5 L, Hct 29.4 L, MCV 96.4, MCH 27.9, MCHC 28.9 L, RDW Std Deviation 59.9 H, RDW Coeff of Colin 17.4 H, Plt Count 197, MPV 9.5, Immature Gran % (Auto) 0.500, Neut % (Auto) 74.9 H, Lymph % (Auto) 12.3 L, [place] % (Auto) 7.6, Eos % (Auto) 3.9, Baso % (Auto) 0.8, Absolute Neuts (auto) 4.4, Absolute Lymphs (auto) 0.73 L, Nucleated RBC % 0 03/07/22 06:00: Sodium 143, Potassium 4.2, Chloride 111 H, Carbon Dioxide 27.0, Anion Gap 5, BUN 8, Creatinine 0.59, Estim Creat Clear Calc 37.24, Est GFR (MDRD) Af Amer 127, Est GFR (MDRD) Non-Af 105, BUN/Creatinine Ratio 13.5, Glucose 136 H, Calcium 9.3, Total Bilirubin 0.40, AST 25, ALT 36, Alkaline Phosphatase 166 H, Total Protein 5.6 L, Albumin 2.6 L, Globulin 3.0, Albumin/Globulin Ratio 0.9 03/07/22 06:00: Retic Count 5.34 H, Immature Retic Fraction 35.70 H, Retic Hgb Equivalent 24.0 L 03/07/22 06:00: Iron 24 L, TIBC 388, Iron Saturation 6.2 L, Ferritin 13 Radiology Impression Chest/Abdomen/Pelvis CT 03/06/22 16:50 IMPRESSION: 1. The thyroid is heterogenous. It contains nodules. This should be further evaluated with ultrasound. This can be performed as an outpatient. There is possible associated mediastinal adenopathy. Neoplasm cannot be excluded. 2. There is demonstrated bilateral pulmonary embolism. No heart strain. There is no saddle embolus. There is no heart strain. 3. Gallstone. 4. Focal wall thickening of the GE junction and fundus of stomach. This can suggest a gastritis. However, there are multiple overlying lymph nodes in this area. Gastric neoplasm is difficult to exclude. There is also mild periaortic adenopathy. 5. Question mild sigmoid diverticulitis. Electronically Signed: Bucky Watts MD at 18:19 EDT , ADDENDUM: 03/06/22 [id number] IMPRESSION: 1. The thyroid is heterogenous. It contains nodules. This should be further evaluated with ultrasound. This can be performed as an outpatient. There is possible associated mediastinal adenopathy. Neoplasm cannot be excluded. 2. There is demonstrated bilateral pulmonary embolism. No heart strain. There is no saddle embolus. There is no heart strain. 3. Gallstone. 4. Focal wall thickening of the GE junction and fundus of stomach. This can suggest a gastritis. However, there are multiple overlying lymph nodes in this area. Gastric neoplasm is difficult to exclude. There is also mild periaortic adenopathy. 5. Question mild sigmoid diverticulitis. N.B. : The above Results were Read Back by Bucky Watts MD to Herman Rodriguez RN, and understanding confirmed on 03/06/2022 18:59:35 (ET). Electronically Signed: Bucky Watts MD at 18:19 EDT , Venous Doppler Study 03/06/22 19:21 Interpretation Summary Acute deep vein thrombosis is noted in the left peroneal vein. Deep veins of the right lower extremity are patent and compressible segmentally. There is no evidence of right lower extremity deep vein thrombosis. The right great saphenous vein appears patent and compressible segmentally. Ordering Physician: Ian Morton Referring Physician: Elia Roblero Performed By: Marisol Eaton, T
--- NOTE | 2022-03-07 16:56 | OP.PCM_ITS ---
Report of Operation Date of Procedure: 03/07/22 Pre-Operative Diagnosis: Venous thromboembolic event with contraindication to a nticoagulation Post-Operative Diagnosis: Same Surgery/Procedure Performed:: Insertion inferior vena cava filter Description of Surgical Findings:: Patent normal caliber inferior vena cava, right common and external iliac veins and common femoral vein free of thrombus Surgeon: Giuseppe Schmidt Type of Anesthesia: Sedation,Conscious Special Medications: 0.5 mg Versed, 25 mcg fentanyl Estimated Blood Loss (mL): 4 cc Description of Procedure: HPI: Patient is a 76-year-old female who presented with upper GI bleed and endoscopy revealed distal esophageal tumor suspicious for malignancy. She underwent staging CT scans which revealed incidental finding of bilateral pulmonary emboli and venous duplex revealed peroneal thrombus. The pulm emboli appeared acute in nature. Given her current contraindication to anticoagulation and presumed acute nature of the pulmonary emboli she is felt appropriate for filter placement. Description of procedure: Upon obtaining informed consent and verification correct patient procedure site patient was taken the [employer] where she was positioned prepped and draped in usual sterile fashion. Time was then performed and conscious sedation administered. Ultrasound used to evaluate the right common femoral vein was patent and normal caliber. Skin was anesthetized 1% lidocaine in the right common femoral vein access in retrograde fashion using micropuncture needle and wire. This exchanged out for micropuncture sheath through which an injection venogram was performed confirming satisfactory position and a patent right iliac vein system. J-wire was then advanced through the micropuncture sheath and the micropuncture sheath exchanged out for the delivery sheath for Bard Fannin IVC filter. This advanced the position at appro ximately L2 lumbar vertebral body and digital subtraction venacavogram performed confirming normal caliber vena cava free of thrombus and revealed the location of the renal veins. The dilator was then withdrawn and the fredrick filter advanced in the position below the lowest renal vein and deployed. Completion venacavogram confirmed satisfactory position with no significant tilt and no thrombus or dissection. The sheath was then withdrawn manual pressure held for 10 minutes afterwards satisfactory pneumostasis was observed. Dry sterile dressing was then applied the patient was awakened from sedation and returned to the medical floor. Grafts/Implants Used: Bard Fannin IVC Filter Complications None
[2022-03-07] MEDS: Atorvastatin Calcium 20 MG Tablet PO (21:40)
[2022-03-08] VITALS (7 sets, daily range): BP systolic 141–158; BP diastolic 59–65; PULSE 92–97; RESP 18; TEMP 37–37.2; O2SAT 81–96
[2022-03-08] MEDS: Sucralfate 1 GM Tablet PO ×2 (05:33→10:45)
[2022-03-08 07:28] LABS: Absolute Lymphocyte Count 0.66 X10^3/uL (0.83-4.51); Basophil# 0.03 X10^3/uL; Basophil% 0.5 % (0-1); Eosinophil# 0.19 X10^3/uL; Eosinophils% 2.9 % (0-5); Hematocrit 28.7 % (37-47); Hemoglobin 8.3 g/dL (12.0-15.0); Lymphocyte # 0.66 X10^3/ul (0.83-4.51); Lymphocyte % 10.1 % (19-41); Mean Corp Hgb Conc 28.9 g/dL (32-36); Mean Corpuscular Hgb 27.8 pg (27.0-32.0); Mean Platelet Vol. 9.8 fl (6.2-12.0); Monocyte# 0.61 X10^3/uL; Monocyte% 9.4 % (0-10); NRBC Flagged by Analyzer 0.5 % (0-5); Neutrophil # 4.99 X10^3/uL (2.7-7.7); Neutrophil % 76.5 % (47-70); Platelet Count 199 K/mm3 (150-450); RBC Distribution Width CV 17.2 % (11.6-14.6); RBC Distribution Width SD 59.4 fl (35.1-43.9); Red Blood Count 2.99 M/mm3 (4.2-5.4); White Blood Count 6.5 K/mm3 (4.4-11.0)
[2022-03-08 07:56] LABS: ALB/GLOB Ratio 0.9 RATIO (0.9-2.4); AST(SGOT) 17 U/L (15-37); Alanine Aminotransfer ALT/SGPT 30 U/L (13-56); Albumin, Serum 2.6 g/dL (3.2-5.0); Alkaline Phosphatase 155 U/L (45-117); Anion Gap 3 (5-15); BUN 12 mg/dL (7-18); BUN/Creat Ratio 18.5 RATIO (10-20); Calcium,Total 9.5 mg/dL (8.5-10.1); Chloride 110 mmol/L (98-107); Creatinine, Serum 0.65 mg/dL (0.55-1.02); EST Glomerular Filtration Rate 95 mL/min (>60); Est Glom Filt Rate - Afr Amer 115 mL/min (>60); Estimated Creatinine Clearance 37.24 ml/min; Glucose 131 mg/dL (74-106); Potassium 4.2 mmol/L (3.5-5.1); Protein, Total 5.6 g/dL (6.4-8.2); Sodium Level 142 mmol/L (136-145)
[2022-03-08] MEDS: Losartan Potassium 50 MG Tablet PO (09:21)
--- NOTE | 2022-03-08 11:04 | DCINST_ITS ---
Discharge Instructions Diet Discharge Diet: No restrictions Activity Discharge Activity: Return to Normal Activity Follow Up Care Test Results: Test results from this visit will be discussed in further detail at your follow- up appointment, if applicable. Discharge Plan Admission Admit Date/Time: 03/06/22 09:15 Primary Reason for Your Visit: Acute GI bleed/Acute PE/esophageal CA Attending Provider: Brandi Romeo Primary Care Provider: Elia Roblero Consulting Providers: Ian Morton ; Ashely Salter NP ; Arben Puckett ; Giuseppe Schmidt Instructions Additional Instructions / Restrictions: Take note of changes to your medications Follow-up with oncology/radiation oncology on Thursday Follow-up with your primary care doctor within 1 to 2 weeks Discharge Orders/Prescriptions Prescriptions: New lidocaine 5 % Adhesive Patch,Medicated 2 patch topical DAILY 15 Days Qty: 30 0RF Protocol: *Topical Application Instructions APPLICATION INSTRUCTIONS: apply to left posterior flank region Rx Instructions: apply to the left flank region, 12 hours on, 12 hours off sucralfate [Carafate] 100 mg/mL suspension 10 ml PO TID 30 Days Qty: 900 0RF pantoprazole [address] for susp in packet 40 mg PO BID 30 Days Qty: 60 0RF Continued cholecalciferol (vitamin D3) 1,000 unit capsule 1,000 unit PO QDAY losartan 50 mg tablet 50 mg PO DAILY Qty: 90 3RF atorvastatin 20 mg tablet 20 mg PO DAILY Qty: 90 3RF betamethasone valerate 0.1 % ointment 1 applic TOPICAL BID PRN (Reason: rash) Qty: 45 3RF miconazole nitrate 2 % powder 1 applic TOPICAL BID Qty: 90 3RF Discontinued aspirin 81 mg tablet,delayed release (DR/EC) 81 mg PO QDAY Calcium 600 600 mg PO/SL DAILY Referrals / Follow Up: Elia Roblero MD [Primary Care Provider] - In 1 Week Giuseppe Schmidt MD [Med Staff - Active Staff] - Within 2 Weeks Arben Puckett DO [Med Staff - Active Staff] - See Referral Note (as scheduled ) Disposition Disposition (needs filled in before D/C Order can be placed): Home, Self Care
--- NOTE | 2022-03-08 11:16 | PCM.DC.SUM ---
Providers Date of Admission: 03/06/22 Date of Discharge: 03/08/22 Primary Care Physician: Dr. Elia Roblero MD Consultations 03/05/22 17:25 Consult: Gastroenterology Routine Consulting Provider: [facility] Reason for Consult: melena EMERGENT Consult: No Notified: Yes Date Notified: 03/05/22 Time Notified: 17:01 Method of Notification: Verbal 03/06/22 16:10 Consult: Oncology Radiation [Consult: Radiation Oncology] Routine Consulting Provider: Arben Puckett Reason for Consult: Probable esophageal cancer EMERGENT Consult: No Notified: Yes Date Notified: 03/06/22 Time Notified: 16:12 Method of Notification: md to md Consult: Oncology/Hematology Routine Consulting Provider: Ashely Salter NP Reason for Consult: Probable esophageal cancer EMERGENT Consult: No Notified: Yes Date Notified: 03/06/22 Time Notified: 17:02 Method of Notification: paged via tube sizer and cutter operator 03/07/22 02:48 Consult: Vascular Surgery Routine Consulting Provider: Giuseppe Schmidt Reason for Consult: Pulmonary emboli EMERGENT Consult: No Notified: Yes Date Notified: 03/07/22 Time Notified: 02:48 Method of Notification: Text Reason For Visit: GI BLEED Diagnosis Discharge Diagnosis (1) Pulmonary embolism: Status: Acute Code(s): I26.99 - Other pulmonary embolism without acute cor pulmonale (2) S/P insertion of IVC (inferior vena caval) filter: Status: Acute Code(s): Z95.828 - Presence of other vascular implants and grafts (3) Iron deficiency anemia secondary to blood loss (chronic): Status: Chronic Code(s): D50.0 - Iron deficiency anemia secondary to blood loss (chronic) (4) Mass of esophagus: Status: Acute Code(s): K22.89 - Other specified disease of esophagus (5) GI bleed: Status: Acute Code(s): K92.2 - Gastrointestinal hemorrhage, unspecified (6) Diverticulitis: Status: Acute Code(s): K57.92 - Diverticulitis of intestine, part unspecified, without perforation or abscess without bleeding Plan 1. Acute blood loss anemia secondary to Acute GI bleed 2. Acute GI bleed secondary to esophageal CA 3. Esophageal CA, partially obstructing at GE junction and in the cardia, 4. Elevated troponin 5. Hyperlipidemia, continue on statin 6. Hypertension, continue losartan 7. DVT Prophylaxis?SCDs Medications at Discharge Home Medications cholecalciferol (vitamin D3) 25 mcg (1,000 unit) capsule 1,000 unit PO QDAY 01/08/18 losartan 50 mg tablet 50 mg PO DAILY #90 tabs 03/11/21 atorvastatin 20 mg tablet 20 mg PO DAILY #90 tabs 09/19/21 betamethasone valerate 0.1 % topical ointment 1 applic topical BID PRN rash #45 grams 12/31/21 miconazole nitrate 2 % topical powder 1 applic topical BID #90 grams 12/31/21 lidocaine 5 % topical patch 2 patch topical DAILY 15 days #30 ea 03/08/22 pantoprazole 40 mg granules delayed-release for susp in packet 40 mg PO BID 30 days #60 ea 03/08/22 sucralfate 100 mg/mL oral suspension (Carafate) 10 ml PO TID 30 days #900 mL 03/08/22 Hospital Course Operations None Procedures EGD Summary of Care Provided Minutes Spent on Discharge: 45 Hospital Course: 76-year-old female with past medical history of hypertension hyperlipidemia who was admitted on 02/20/22 with melena stools. Patient was earlier on seen in the emergency department on 03/03/22. His hemoglobin was found to be 5.5. She denied any abdominal pain or hematochezia or melena this was discussed with general surgery, who recommended outpatient management. She received 3 units of packed RBCs and was discharged home to follow-up with general surgery for outpatient colonoscopy/EGD. Patient however had melena stool on the day of admission as well as left upper quadrant pain. Gastroenterology was consulted from the ED. Patient's admitting hemoglobin was 9.5. CT of the abdomen pelvis showed acute diverticulitis in the proximal sigmoid colon as well as extensive sigmoid diverticulosis. Patient was admitted to the progressive care unit, kept n.p.o., started on IV Zosyn for probable acute diverticulitis, IV PPI, kept NPO. She underwent EGD on 03/06/22. Find it showed a partially obstructing malignant esophageal tumor found in the lower third of the esophagus, at the GE junction the cardia that was biopsied. Biopsy results were pending at the time of discharge. She was continued on sacral fate, pantoprazole drip, octreotide. Oncology and radiation oncology were consulted. Patient had a stat CT of the chest abdomen and pelvis done. Findings showed thyroid nodules, mediastinal adenopathy, bilateral PE with no heart strain or saddle embolus. There was focal wall thickening of the GE junction and fundus of the stomach as well as multiple bilateral lymph nodes in the region. Discussed with all subspecialists; patient could not be anticoagulated because of high risk of bleeding. Discussed with the patient about risks of anticoagulation. Vascular surgery was consulted. Doppler ultrasound of bilateral lower extremity showed a left peroneal vein DVT. Patient had an IVC filter placed on 03/07/22. Patient was monitored overnight with no acute events. She was found to be severely iron deficient. She received a dose of IV Venofer. She was evaluated for home oxygen; she initially needed 2 L of oxygen. She was given a dose of Lasix 40 mg IV x1. She was reevaluated and did not require oxygen She was discharged on pantoprazole sprinkles, and avoidance of oral pills. She was also discharged on liquid Carafate 3 times daily. She was asked to stay on a full liquid diet. She will follow-up with oncology on Thursday and in radiation oncology on Thursday. She will follow-up with vascular surgery within 4 weeks. Physical Exam Narrative Physical exam: General: Alert, Oriented x3, Cooperative, No apparent distress, not pale HEENT: Atraumatic Oral: Moist Mucosa Neck: Supple Lungs:Diminished to auscultation, few crackles at the lung bases Cardiovascular: HS I+II, regular, no murmurs Abdomen: Bowel Sounds Present, Soft, Non Tender Extremities: No edema Skin: No rashes, No breakdown Neurological: Grossly intact Psych/Mental Status: Appropriate Weight / BMI Weight Weight: 88.5 kg Body Mass Index (BMI) 36.8 ABG / Lab / Microbiology Data Result Diagrams: 03/08/22 07:10 03/08/22 07:10 Laboratory: Laboratory Results - last 24 hr 03/08/22 07:10: WBC 6.5, RBC 2.99 L, Hgb 8.3 L, Hct 28.7 L, MCV 96.0, MCH 27.8, MCHC 28.9 L, RDW Std Deviation 59.4 H, RDW Coeff of Colin 17.2 H, Plt Count 199, MPV 9.8, Immature Gran % (Auto) 0.600, Neut % (Auto) 76.5 H, Lymph % (Auto) 10.1 L, [place] % (Auto) 9.4, Eos % (Auto) 2.9, Baso % (Auto) 0.5, Absolute Neuts (auto) 5.0, Absolute Lymphs (auto) 0.66 L, Nucleated RBC % 0.5 03/08/22 07:10: Sodium 142, Potassium 4.2, Chloride 110 H, Carbon Dioxide 29.0, Anion Gap 3 L, BUN 12, Creatinine 0.65, Estim Creat Clear Calc 37.24, Est GFR (MDRD) Af Amer 115, Est GFR (MDRD) Non-Af 95, BUN/Creatinine Ratio 18.5, Glucose 131 H, Calcium 9.5, Total Bilirubin 0.30, AST 17, ALT 30, Alkaline Phosphatase 155 H, Total Protein 5.6 L, Albumin 2.6 L, Globulin 3.0, Albumin/Globulin Ratio 0.9 Microbiology: Microbiology 03/05/22 15:05 Stool Stool Occult Blood (LEONARDO) - Final Occult Blood Positive Radiography Diagnostic Testing: Radiology Impression Venous Doppler Study 03/06/22 19:21 Interpretation Summary Acute deep vein thrombosis is noted in the left peroneal vein. Deep veins of the right lower extremity are patent and compressible segmentally. There is no evidence of right lower extremity deep vein thrombosis. The right great saphenous vein appears patent and compressible segmentally. Ordering Physician: Ian Morton Referring Physician: Elia Roblero Performed By: Marisol Eaton RVT D/C Instructions Discharge Diet: No restrictions Meaningful Use Info Meaningful Use Diagnoses (Choose all that apply): None applicable Discharge Plan Admission Admit Date/Time: 03/06/22 09:15 Primary Reason for Your Visit: Acute GI bleed/Acute PE/esophageal CA Attending Provider: Brandi Romeo Primary Care Provider: Elia Roblero Consulting Providers: Ian Morton ; Ashely Salter BUSINESS APPLICATIONS MANAGER ; Arben Puckett ; Giuseppe Schmidt Instructions Additional Instructions / Restrictions: Take note of changes to your medications Follow-up with oncology/radiation oncology on Thursday Follow-up with your primary care doctor within 1 to 2 weeks Remove the dressing on your right groin tomorrow, Thursday. Follow-up with vascular surgery within 4 weeks. Discharge Orders/Prescriptions Prescriptions: New lidocaine 5 % Adhesive Patch,Medicated 2 patch topical DAILY 15 Days Qty: 30 0RF Protocol: *Topical Application Instructions APPLICATION INSTRUCTIONS: apply to left posterior flank region Rx Instructions: apply to the left flank region, 12 hours on, 12 hours off sucralfate [Carafate] 100 mg/mL suspension 10 ml PO TID 30 Days Qty: 900 0RF pantoprazole [address] for susp in packet 40 mg PO BID 30 Days Qty: 60 0RF Continued cholecalciferol (vitamin D3) 1,000 unit capsule 1,000 unit PO QDAY losartan 50 mg tablet 50 mg PO DAILY Qty: 90 3RF atorvastatin 20 mg tablet 20 mg PO DAILY Qty: 90 3RF betamethasone valerate 0.1 % ointment 1 applic TOPICAL BID PRN (Reason: rash) Qty: 45 3RF miconazole nitrate 2 % powder 1 applic TOPICAL BID Qty: 90 3RF Discontinued aspirin 81 mg tablet,delayed release (DR/EC) 81 mg PO QDAY Calcium 600 600 mg PO/SL DAILY Referrals / Follow Up: Elia Roblero MD [Primary Care Provider] - In 1 Week Giuseppe Schmidt MD [Med Staff - Active Staff] - Within 1 Month Louisa Matos MD [Med Staff - Active Staff] - See Referral Note (See on 03/10/22) Arben Puckett DO [Med Staff - Active Staff] - See Referral Note (as scheduled ) Disposition Disposition (needs filled in before D/C Order can be placed): Home, Self Care Charges/Coding Visit Charges Inpatient E&M: 44040 Disch Hosp
[2022-03-08] MEDS: Furosemide 40 MG/4 ML Vial IV (11:24)
--- NOTE | 2022-03-08 12:01 | CASEMGMT ---
ALEXIS CM in to pt room, pt aware she may need to go home with home oxygen. Provided pt with a list of local in network DME companies, pt chose [employer]. Instructed pt on procedure for oxygen once home. Pt has a pox at home. Green sheet completed for oxygen. Pt denies further needs. Family in room during conversation.
== END 2022-03-08 12:46 | disposition home or self-care (01) | DRG 326 ==
LOC: ED 16:53 → PCU 03-06 05:52
PROVIDERS: Anesthesiology; Internal Medicine Gastroenterology; Admitting Provider Internal Medicine; Emergency Provider Student in an Organized Health Care Education/Training Program; PCP Internal Medicine; Visit Provider Internal Medicine
PROC: 0DJD8ZZ Inspection of Lower Intestinal Tract, Via Natural or Artificial Opening Endoscopic (ICD-10-PCS; CPT 45378; principal; 2022-03-06 15:55)
DX: K55.9 Vascular disorder of intestine, unspecified (principal); I26.99 Other pulmonary embolism without acute cor pulmonale; I82.452 Acute embolism and thrombosis of left peroneal vein; C16.0 Malignant neoplasm of cardia; D62 Acute posthemorrhagic anemia; C78.7 Secondary malignant neoplasm of liver and intrahepatic bile duct; K57.32 Diverticulitis of large intestine without perforation or abscess without bleeding; D50.9 Iron deficiency anemia, unspecified; E11.9 Type 2 diabetes mellitus without complications; K22.2 Esophageal obstruction; E78.5 Hyperlipidemia, unspecified; I10 Essential (primary) hypertension; K76.9 Liver disease, unspecified; K80.20 Calculus of gallbladder without cholecystitis without obstruction; E04.2 Nontoxic multinodular goiter; K22.89 Other specified disease of esophagus; Z79.82 Long term (current) use of aspirin; Z87.891 Personal history of nicotine dependence; Z80.3 Family history of malignant neoplasm of breast; R13.10 Dysphagia, unspecified; Z95.828 Presence of other vascular implants and grafts; Z82.3 Family history of stroke; R59.1 Generalized enlarged lymph nodes
CPT/HCPCS: 36415; 37191; 71260; 74177; 76937; 77014; 77290; 80053; 80076; 82274; 82306; 82728; 83540; 83550; 83605; 83615; 83690; 83880; 84443; 84484; 85014; 85018; 85025; 85045; 85610; 85652; 85730; 86140; 86850; 86900; 86901; 86920; 86922; 88305; 88313; 88341; 88342; 93005; 93306; 93970; 97802; 99152; 99283; 99284; J7030; J7040; J7050; J7120; P9016; Q9967; A4216; C1769; C1880; J1940; J2405; J2916

== ENCOUNTER 2022-03-27 10:50 | Inpatient (IN) | payer MEDICARE, OTHER, SELFPAY ==
[2022-03-27] VITALS (8 sets, daily range): BP systolic 110–147; BP diastolic 64–78; PULSE 77–110; RESP 16–24; TEMP 35.9–37.2; O2SAT 92–100; BMI 33.2; BMI 33.7
[2022-03-27 11:58] LABS: Absolute Lymphocyte Count 0.18 X10^3/uL (0.83-4.51); Absolute Neutrophil Count 4.6 X10^3/uL (2.0-7.7); Basophil# 0.04 X10^3/uL; Basophil% 0.7 % (0-1); Eosinophil# 0.38 X10^3/uL; Eosinophils% 6.5 % (0-5); Hematocrit 37.9 % (37-47); Hemoglobin 11.7 g/dL (12.0-15.0); Lymphocyte # 0.18 X10^3/ul (0.83-4.51); Lymphocyte % 3.1 % (19-41); Mean Corp Hgb Conc 30.9 g/dL (32-36); Mean Corpuscular Hgb 27.1 pg (27.0-32.0); Mean Corpuscular Volume 87.7 fL (81-99); Mean Platelet Vol. 10.4 fl (6.2-12.0); Monocyte# 0.57 X10^3/uL; Monocyte% 9.8 % (0-10); NRBC Flagged by Analyzer 0 % (0-5); Neutrophil # 4.63 X10^3/uL (2.7-7.7); Neutrophil % 79.6 % (47-70); POSITIVE DIFFERENTIAL YES; Platelet Count 222 K/mm3 (150-450); RBC Distribution Width CV 16.2 % (11.6-14.6); RBC Distribution Width SD 51.5 fl (35.1-43.9); Red Blood Count 4.32 M/mm3 (4.2-5.4); White Blood Count 5.8 K/mm3 (4.4-11.0)
--- NOTE | 2022-03-27 11:58 | CT_ITS ---
STUDY: CT ABDOMEN AND PELVIS WITH CONTRAST REASON FOR EXAM: Female, 76 years old. Abdominal pain RADIATION DOSAGE (If Supplied By Facility): CTDIvol = ( 20.26 ) mGy, DLP = ( 1600.75 ) mGycm TECHNIQUE: Transaxial images were obtained from the dome of the diaphragm to the symphysis pubis without oral contrast. IV 100mL Isovue-370 was administered. Sagittal and coronal images were reconstructed. Individualized dose optimization techniques were used for this CT. COMPARISON: Comparison is made with prior study dated 03/05/2022. FINDINGS: Mild increased markings at the lung bases suggestive of mild degree of linear atelectasis and/or scarring. Carotid artery calcifications. Stable 1 cm cyst in the superior central aspect of the right lobe of the liver. There are multiple small gallstones. Normal spleen. Normal pancreas. Normal bilateral adrenal glands. Normal right kidney. Normal left kidney. There is diffuse circumferential wall thickening of the distal esophagus as well as at the level of the gastroesophageal junction. There is diffuse heterogeneous thickening of the antral wall of the stomach. This is indicative of the patient''s history of a carcinoma. There is also evidence of small lymph nodes in the periportal and gastroepiploic ligaments. This is unchanged. Normal small intestine. There are multiple colonic diverticula consistent with diverticulosis. Diverticula are also seen in the right hemicolon. The appendix is visualized and appears normal. There is diffuse atherosclerotic calcification of the abdominal aorta, without a demonstrated aneurysm. There is an IVC filter in place. There is retroperitoneal lymphadenopathy with enlarged nodes greater than 10-15mm in the short axis. Normal urinary bladder. There is absence of the uterus consistent with a prior hysterectomy. Multiple calcified phleboliths. Normal abdominal wall. There are mild degenerative changes of the visualized lumbar spine. Minimal anterior listhesis of L4 on L5. CT/Abdomen/Pelvis W IV Cont ONLY IMPRESSION: Stable thickening of the distal esophagus and gastroesophageal junction with extension of the lesser curvature of the stomach. Stable periportal and gastroepiploic lymphadenopathy. Enlarged retroperitoneal lymph nodes. Tiny gallstones. Colonic diverticula. Electronically Signed: Stas Ambrocio MD at 13:34 EDT ,
--- NOTE | 2022-03-27 11:59 | ED.VIS.GI ---
HPI HPI - GI History of Present Illness Chief Complaint: Abd Pain Detail of Chief Complaint: Abdominal pain x1 week Informant: patient Abdominal Pain/Flank Pain Current Severity: Severe Narrative Narrative: Patient presents the emergency department complaint of abdominal pain that started a week ago. Patient states that she was on her way to see Dr. Schmidt who recently placed a Yamilet filter. Patient was to have a follow-up visit today. Patient states that she was having severe abdominal pain and comes here instead. Patient has had the pain for a week. Patient currently finished radiation therapy for esophageal and gastric cancer. Patient has not had any chemotherapy or surgical intervention. Patient is apparently stage IV. Patient describes some mild nausea but no vomiting. She denies diarrhea. Pain is severe especially with movement. Patient has had prior and hysterectomy. 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 Home Medications losartan 50 mg tablet 50 mg PO DAILY #90 tabs 03/11/21 [Rx Last Taken 03/27/22] atorvastatin 20 mg tablet 20 mg PO DAILY #90 tabs 09/19/21 [Rx Last Taken 03/27/22] ondansetron HCl 4 mg tablet 4 mg PO Q8H PRN nausea and vomiting #30 tabs 03/12/22 [Rx Last Taken 03/26/22] omeprazole 20 mg capsule,delayed release 20 mg PO BID 03/17/22 [History Last Taken 03/27/22] hydrochlorothiazide 12.5 mg tablet 12.5 mg PO DAILY BP 03/27/22 [History Last Taken 03/27/22] sucralfate 100 mg/mL oral suspension (Carafate) 10 ml PO TIDCM 03/27/22 [History Last Taken 03/27/22] Allergy/AdvReac Type Severity Reaction Status Date / Time No Known Allergies Allergy Verified 03/26/22 13:49 Family History Mother Breast cancer Grandmother CVA (cerebral vascular accident) Hypertension Father Heart disease Myocardial infarction Sister Breast cancer Aunt Breast cancer Surgical History Broken ankle H/O: hysterectomy Hx of section Hx of colonoscopy Social History household members: spouse Smoking Status: Former smoker Tobacco: How many years used: 12 how long ago did patient quit smoking: smoked 3 ppd for 12 years, quit in 1980 alcohol intake: current alcohol intake frequency: holidays/special occasions only Alcohol type: beer substance use type: does not use caffeine: Yes Type: coffee what type of physical activity do you participate in: none ROS ROS ED Review of Systems ROS Unobtainable: other Constitutional Constitutional ED: Reports lethargy; Denies chills, fever(s), sweats or weight loss Eyes Eyes: Denies blurry vision, change in vision or diplopia ENT ENT ED: Denies rhinorrhea or sore throat Cardiovascular Cardiovascular: Denies chest pain, orthopnea or racing heartbeat Respiratory/Chest Respiratory/Chest: Denies cough, dyspnea, dyspnea on exertion, orthopnea or sputum Gastrointestinal Gastrointestinal: Reports abdominal pain; Denies diarrhea, nausea or vomiting Genitourinary Genitourinary ED: Denies dysuria, hematuria or urinary frequency Musculoskeletal Musculoskeletal: Denies arthralgias, back pain, myalgias or neck pain Integumentary Denies abscess, Abrasions or rash Neurologic Neurologic: Denies headache(s) or weakness Psychiatric Psychiatric: Denies anxiety, depression or suicidal thoughts Endocrine Endocrinology: Denies polydipsia, polyphagia or polyuria Hematologic/Lymphatic Hematologic/Lymphatic: Denies easy bleeding, easy bruising or lymphadenopathy Allergic/Immunologic Allergic/Immunologic ED: Denies mouth swelling, tongue swelling or urticaria EXAM Physical Exam Const Vital Signs: 03/27/22 10:51 03/27/22 13:25 Temperature 96.6 F L Temperature Source Temporal Pulse Rate 110 H 86 Respiratory Rate 24 H 16 Blood Pressure 122/65 H 110/75 Blood Pressure Mean 84 86 Pulse Ox 100 99 Oxygen Delivery Method Room Air Room Air Positive well nourished and well developed General Appearance ED: well developed and NAD HEENT Reports TM's clear and moist mucous membranes normocephalic and atraumatic; Negative for trauma or tenderness Tympanic Membrane ED: Yes TM's clear Eyes PERRL and EOMs intact bilaterally General Eye ED: Negative for pale conjunctiva or scleral icterus Neck no lymphadenopathy, supple and no JVD General: Negative for tenderness Chest Wall inspection of chest normal and palpation of chest normal Chest: Negative for tenderness Resp normal respiratory effort and clear to auscultation bilaterally Effort and Inspection: Negative for respiratory distress or pain with movement Auscultation: Negative for rhonchi, wheezes or diminished lung sounds Cardio regular rate, regular rhythm, S1 normal heart sound, S2 normal heart sound and no murmurs Peripheral Pulses: pulses 2+ throughout GI normal to inspection, nondistended, normoactive bowel sounds, soft to palpation, non-distended and no masses GI Narrative: Tenderness palpation diffusely. There is no rebound, rigidity, or peritoneal signs. Back/Spine no CVA tenderness and no thoracic nor lumbar tenderness Extremity normal to inspection General Extremety ED: Negative for edema General Extremity: Negative for edema Neuro oriented x3, CN's II-XII intact bilaterally, no sensory deficits noted and gait normal Sensorium / Orientation: awake, alert, oriented to person, oriented to place and oriented to time Motor Exam: strength 5/5 throughout and strength abnormal Psych mental status grossly normal Skin no rashes or lesions noted and no wounds MDM MDM MDM Narrative Medical decision making narrative: IV line established on arrival. Patient was ordered Dilaudid but stated that she did not want to take it because as long as she is not moving she is relatively comfortable. CT scan of the chest was obtained which showed bilateral PEs. Patient states that she knows she has PEs and that so she had a Yamilet filter placed and they could not anticoagulate her because her tumors were bleeding. CT scan of the abdomen pelvis was essentially consistent with her history of esophageal and gastric cancer. No other acute process was noted. Lab work-up essentially unremarkable otherwise other than a potassium of 2.7 for which I did write for 40 mEq of potassium IV. Case will be discussed with hospitalist evaluate patient for admission for diagnosis of hypoxemia with PEs, hyperkalemia, abdominal pain. Lab Data Attestation: I reviewed the patient's lab results. Labs: Laboratory Results - last 24 hr 03/27/22 03/27/22 03/27/22 11:30 11:30 11:30 WBC 5.8 RBC 4.32 Hgb 11.7 L Hct 37.9 MCV 87.7 MCH 27.1 MCHC 30.9 L RDW Std Deviation 51.5 H RDW Coeff of Colin 16.2 H Plt Count 222 MPV 10.4 Immature Gran % (Auto) 0.300 Neut % (Auto) 79.6 H Lymph % (Auto) 3.1 L [place] % (Auto) 9.8 Eos % (Auto) 6.5 H Baso % (Auto) 0.7 Absolute Neuts (auto) 4.6 Absolute Lymphs (auto) 0.18 L Nucleated RBC % 0 Differential Comment SCANNED Sodium 140 Potassium 2.7 L* Chloride 104 Carbon Dioxide 27.0 Anion Gap 9 BUN 12 Creatinine 0.57 Estim Creat Clear Calc 37.24 Est GFR (MDRD) Af Amer 132 Est GFR (MDRD) Non-Af 109 BUN/Creatinine Ratio 20.9 H Glucose 146 H Lactic Acid Calcium 10.7 H Magnesium 1.7 Total Bilirubin 0.70 AST 20 ALT 22 Alkaline Phosphatase 158 H Total Protein 6.8 Albumin 2.9 L Globulin 3.9 Albumin/Globulin Ratio 0.7 L Lipase 69 L Cancelled 03/27/22 03/27/22 11:30 12:08 WBC RBC Hgb Hct MCV MCH MCHC RDW Std Deviation RDW Coeff of Colin Plt Count MPV Immature Gran % (Auto) Neut % (Auto) Lymph % (Auto) [place] % (Auto) Eos % (Auto) Baso % (Auto) Absolute Neuts (auto) Absolute Lymphs (auto) Nucleated RBC % Differential Comment Sodium Potassium Chloride Carbon Dioxide Anion Gap BUN Creatinine Estim Creat Clear Calc Est GFR (MDRD) Af Amer Est GFR (MDRD) Non-Af BUN/Creatinine Ratio Glucose Lactic Acid 1.5 Calcium Magnesium Cancelled Total Bilirubin AST ALT Alkaline Phosphatase Total Protein Albumin Globulin Albumin/Globulin Ratio Lipase Radiography Diagnostic Testing: Clinical Impression(s) from Imaging Studies Abdomen/Pelvis CT 03/27/22 11:58 IMPRESSION: Stable thickening of the distal esophagus and gastroesophageal junction with extension of the lesser curvature of the stomach. Stable periportal and gastroepiploic lymphadenopathy. Enlarged retroperitoneal lymph nodes. Tiny gallstones. Colonic diverticula. Electronically Signed: Stas Ambrocio MD at 13:34 EDT , Chest CTA 03/27/22 12:06 IMPRESSION: Multiple intraluminal filling defects in keeping with bilateral pulmonary embolism more prominent in the right hemithorax. Findings suggestive of bibasilar atelectasis. Diffuse circumferential wall thickening of the distal esophagus and fundal portion of the stomach as well as the lesser curvature of the stomach with evidence of adenopathy in the gastroepiploic ligaments. Electronically Signed: Stas Ambrocio MD at 13:24 EDT , Discharge Plan Dx/Rx/DC Orders Clinical Impression: Hypoxemia, Pulmonary emboli, Abdominal pain, Acute hypokalemia, Hx of esophageal malignancy Disposition Disposition: Acute Care Hospital [facility]
[2022-03-27 12:03] LABS: Differential Indicated SCAN CRITERIA MET
--- NOTE | 2022-03-27 12:06 | CT_ITS ---
STUDY: CTA CHEST REASON FOR EXAM: Female, 76 years old. Dyspnea, hypoxia. History of stage IV esophageal and gastric carcinoma. Recent Yamilet filter placement. RADIATION DOSAGE (If Supplied By Facility): CTDIvol = ( 20.26 ) mGy, DLP = ( 1600.75 ) mGycm TECHNIQUE: The examination was performed with the intravenous administration of IV 100mL [id number]. Post-processing of the angiographic images was performed, with multiplanar reformation and 3D reconstruction. Individualized dose optimization techniques were used for this CT. COMPARISON: Comparison is made with prior examination of 03/06/2022. FINDINGS: There is a 3.6 cm x 3.5 cm heterogeneous predominantly cystic mass in the mid and inferior pole of the right lobe of the thyroid gland. This is unchanged. There are multiple intraluminal filling defects in branches of the right interlobar pulmonary artery and branches in the right lower lobe pulmonary arterial branches. Smaller filling defects are seen in branches of the left lower and upper pulmonary arterial branches in keeping with bilateral pulmonary emboli. Normal thoracic aorta and visualized great vessels. There is no demonstrated aortic dissection. Normal heart and pericardium. Normal mediastinum. Normal hilar regions. Normal visualized trachea and bronchi. The lungs are well expanded. Mild degree of increased markings at the lung bases with the mild degree of confluence. This is suggestive of bibasilar atelectasis. Normal pleura. Normal chest wall structures. There are degenerative changes of thoracic spine. Once again, there is evidence of a circumferential wall thickening of the distal esophagus with extension into the gastric fundus. There is also thickening along the lesser curvature of the stomach. There is a 1.5 cm hypodense nodule in the superior aspect of the right lobe of the liver. Adenopathy is seen in the gastroepiploic ligament and in the region of the archana hepatis. CT/CTA Chest W/WO Contrast IMPRESSION: Multiple intraluminal filling defects in keeping with bilateral pulmonary embolism more prominent in the right hemithorax. Findings suggestive of bibasilar atelectasis. Diffuse circumferential wall thickening of the distal esophagus and fundal portion of the stomach as well as the lesser curvature of the stomach with evidence of adenopathy in the gastroepiploic ligaments. Electronically Signed: Stas Ambrocio MD at 13:24 EDT ,
[2022-03-27 12:22] LABS: ALB/GLOB Ratio 0.7 RATIO (0.9-2.4); AST(SGOT) 20 U/L (15-37); Alanine Aminotransfer ALT/SGPT 22 U/L (13-56); Albumin, Serum 2.9 g/dL (3.2-5.0); Alkaline Phosphatase 158 U/L (45-117); Anion Gap 9 (5-15); BUN 12 mg/dL (7-18); BUN/Creat Ratio 20.9 RATIO (10-20); Calcium,Total 10.7 mg/dL (8.5-10.1); Chloride 104 mmol/L (98-107); Creatinine, Serum 0.57 mg/dL (0.55-1.02); EST Glomerular Filtration Rate 109 mL/min (>60); Est Glom Filt Rate - Afr Amer 132 mL/min (>60); Estimated Creatinine Clearance 37.24 ml/min; Globulin 3.9 g/dL (2.2-4.2); Glucose 146 mg/dL (74-106); Potassium 2.7 mmol/L (3.5-5.1); Protein, Total 6.8 g/dL (6.4-8.2); Sodium Level 140 mmol/L (136-145)
[2022-03-27] MEDS: 0.9% Normal Saline 1,000 ML 125 ML IV (12:22)
[2022-03-27 12:29] LABS: Differential Comment SCANNED
[2022-03-27 12:49] LABS: Lipase 69 U/L (73-393); Magnesium 1.7 mg/dL (1.6-2.6)
[2022-03-27 13:07] LABS: Lactic Acid 1.5 mmol/L (0.4-1.9)
[2022-03-27] MEDS: Potassium Chloride 10mEq/100mL 10 MEQ/100 ML IV.SOLN. 100 MEQ IV BOLUS ×4 (13:25→17:07)
--- NOTE | 2022-03-27 14:01 | HP.PCM.HOS_ITS ---
HPI - General General Date of Admission: 03/27/22 Date of Service: 03/27/22 Chief Complaint: Abdominal pain, radiation day prior for esophageal cancer. 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 Puckett currently undergoing treatments w/ last radiation the day prior, ? Diabetes mellitus type II, Hx GI Bleed who presents to the [facility] ED on 03/27/22 with history of ~ 1 week of BL LQ abdominal cramping discomfort (pain 2-3/10, intermittent), worsening poor oral intake secondary to no appetite as well as altered taste in addition to dyspnea with associated weight loss, worse with exertion over the last s everal days prompting ED evaluation. She notes her BL abdominal is primarily when she is up and moving. She notes no stool output secondary to no intake aside mucous discharge. Work-up in the ED included T96.9 Temporally, heart rate initially 110 with most recent repeat 86, BP initially 122/65 with most recent repeat 110/75, respiratory rate 16, 99% on room air, CBC with WC 5.8, hemoglobin 0.7, MCV 87.7, platelet 222 with lymphopenia, CMP with potassium 2.7, glucose 146, lactic acid 1.5, calcium 10.7, T bili 0.70, AST/ALT 20/22, alk phos 158, lipase 69, CT abdomen pelvis with IV contrast with stable thickening of the distal esophagus and GE junction with extension of the lesser curvature of the stomach, stable periportal and gastroepiploic lymphadenopathy, enlarged retroperitoneal lymph nodes, tiny gallstones, colonic diverticula, CTPA with multiple intraluminal filling defects in keeping with bilateral pulmonary emboli more prominent in the right hemithorax with findings suggestive of bibasilar atelectasis, diffuse circumferential wall thickening of the distal esophagus and fundal portion of the stomach as well as the lesser curvature of the stomach with evidence of adenopathy in the gastroepiploic ligaments. In the ED patient ministered normal saline, potassium supplementation as well as Zofran and Dilaudid. 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 Home Medications losartan 50 mg tablet 50 mg PO DAILY #90 tabs 03/11/21 [Rx Last Taken 03/27/22] atorvastatin 20 mg tablet 20 mg PO DAILY #90 tabs 09/19/21 [Rx Last Taken 03/27/22] ondansetron HCl 4 mg tablet 4 mg PO Q8H PRN nausea and vomiting #30 tabs 03/12/22 [Rx Last Taken 03/26/22] omeprazole 20 mg capsule,delayed release 20 mg PO BID 03/17/22 [History Last Taken 03/27/22] hydrochlorothiazide 12.5 mg tablet 12.5 mg PO DAILY BP 03/27/22 [History Last Taken 03/27/22] sucralfate 100 mg/mL oral suspension (Carafate) 10 ml PO TIDCM 03/27/22 [History Last Taken 03/27/22] Allergy/AdvReac Type Severity Reaction Status Date / Time No Known Allergies Allergy Verified 03/26/22 13:49 Family History Mother Breast cancer Grandmother CVA (cerebral vascular accident) Hypertension Father Heart disease Myocardial infarction Sister Breast cancer Aunt Breast cancer Surgical History Broken ankle H/O: hysterectomy Hx of section Hx of colonoscopy Social History household members: spouse Smoking Status: Former smoker Tobacco: How many years used: 12 how long ago did patient quit smoking: smoked 3 ppd for 12 years, quit in 1980 alcohol intake: current alcohol intake frequency: holidays/special occasions only Alcohol type: beer substance use type: does not use caffeine: Yes Type: coffee what type of physical activity do you participate in: none ROS ROS Narrative Admission Review of Systems: CONSTITUTIONAL: No weight loss, fever, chills, + weakness or fatigue. HEENT: + Altered taste. Eyes: No visual loss, blurred vision, double vision or yellow sclerae. Ears, Nose, Throat: No hearing loss, sneezing, congestion, runny nose or sore throat. SKIN: No rash or itching, lesions, wounds. CARDIOVASCULAR: No chest pain, chest pressure or chest discomfort, palpitations, edema, orthopnea, syncopal events. RESPIRATORY: + shortness of breath, No marked cough or sputum, wheezing, hemoptysis. GASTROINTESTINAL: + anorexia, nausea without vomiting, no output with no input, abdominal cramping, mucous discharge, No melena, BRBPR. GENITOURINARY: No dysuria, frequency, urgency or retention. NEUROLOGICAL: No headache, dizziness, syncope, paralysis, ataxia, numbness or tingling in the extremities, focal weakness, change in bowel or bladder control, seizure. MUSCULOSKELETAL: + muscle, back pain, joint pain or stiffness. HEMATOLOGIC: + anemia, bleeding or bruising. LYMPHATICS: No enlarged nodes. No history of splenectomy. PSYCHIATRIC: + Suspected depression or anxiety. ENDOCRINOLOGIC: No reports of sweating, cold or heat intolerance. No polyuria or polydipsia. ALLERGIES: No history of asthma, hives, eczema or rhinitis. Vital Signs Vital Signs Vital Signs: 03/27/22 10:51 03/27/22 13:25 Temperature 96.6 F L Temperature Source Temporal Pulse Rate 110 H 86 Respiratory Rate 24 H 16 Blood Pressure 122/65 H 110/75 Blood Pressure Mean 84 86 Pulse Ox 100 99 Oxygen Delivery Method Room Air Room Air Weight Weight: 176 lb Body Mass Index (BMI) 33.2 Physical Exam Narrative Physical Examination: General: Awake, alert, oriented x 3 and cooperative, seated upright in the ED bed, fatigued, recently use the bedside commode and just came back into bed lang ears dyspneic with mildly increased respiratory rate. Skin: Normal color, normal turgor, no icterus, no cyanosis except occasional staged ecchymoses. HEENT: AT/NC, EOMI, PERRLA, dry MM, no carotid bruits or JVD noted. Lungs: Diminished, greater bases, moderate effort, initially increased respiratory rate but lessened with rest as had recently use the bedside commode as noted, no rales, ronchi or wheezing. Heart: Regular rate and rhythm; no gallop, rub audible. Abdomen: Soft, obese, no grimacing nor any rebound or guarding especially with bilateral lower quadrant palpation despite patient complaints of pain, no obvious distention, hypoactive bowel sounds, no obvious HSM. Extremities: No cyanosis, clubbing, or edema. Neurological: Patient awake, alert, oriented as noted, cognitive function intact; pupils equally reactive to light and accommodation, cranial nerves II- XII grossly normal, moving all 4 extremities, no focal deficits, strength moderately to severely global decreased Psychiatric: Affect appears flat, fatigued, do suspect underlying possible depression. No acute evidence of anxiety feelings. Results Lab / Micro Data Result Diagrams: 03/27/22 11:30 03/27/22 11:30 Labs: Laboratory Results - last 24 hr 03/27/22 11:30: WBC 5.8, RBC 4.32, Hgb 11.7 L, Hct 37.9, MCV 87.7, MCH 27.1, MCHC 30.9 L, RDW Std Deviation 51.5 H, RDW Coeff of Colin 16.2 H, Plt Count 222, MPV 10.4, Immature Gran % (Auto) 0.300, Neut % (Auto) 79.6 H, Lymph % (Auto) 3.1 L, [place] % (Auto) 9.8, Eos % (Auto) 6.5 H, Baso % (Auto) 0.7, Absolute Neuts (auto) 4.6, Absolute Lymphs (auto) 0.18 L, Nucleated RBC % 0, Differential Co mment SCANNED 03/27/22 11:30: Sodium 140, Potassium 2.7 L*, Chloride 104, Carbon Dioxide 27.0, Anion Gap 9, BUN 12, Creatinine 0.57, Estim Creat Clear Calc 37.24, Est GFR (MDRD) Af Amer 132, Est GFR (MDRD) Non-Af 109, BUN/Creatinine Ratio 20.9 H, Glucose 146 H, Calcium 10.7 H, Magnesium 1.7, Total Bilirubin 0.70, AST 20, ALT 22, Alkaline Phosphatase 158 H, Total Protein 6.8, Albumin 2.9 L, Globulin 3.9, Albumin/Globulin Ratio 0.7 L, Lipase 69 L 03/27/22 11:30: Lipase Cancelled 03/27/22 11:30: Magnesium Cancelled 03/27/22 12:08: Lactic Acid 1.5 Radiology Impression Abdomen/Pelvis CT 03/27/22 11:58 IMPRESSION: Stable thickening of the distal esophagus and gastroesophageal junction with extension of the lesser curvature of the stomach. Stable periportal and gastroepiploic lymphadenopathy. Enlarged retroperitoneal lymph nodes. Tiny gallstones. Colonic diverticula. Electronically Signed: Stas Ambrocio MD at 13:34 EDT , Chest CTA 03/27/22 12:06 IMPRESSION: Multiple intraluminal filling defects in keeping with bilateral pulmonary embolism more prominent in the right hemithorax. Findings suggestive of bibasilar atelectasis. Diffuse circumferential wall thickening of the distal esophagus and fundal portion of the stomach as well as the lesser curvature of the stomach with evidence of adenopathy in the gastroepiploic ligaments. 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 Puckett currently undergoing treatments w/ last radiation the day prior, ? Diabetes mellitus type II, Hx GI Bleed who presents to the [facility] ED on 03/27/22 with history of ~ 1 week of BL LQ abdominal cramping discomfort (pain 2-3/10, intermittent), worsening poor oral intake secondary to no appetite as well as altered taste in addition to dyspnea with associated weight loss, worse with exertion over the last several days prompting ED evaluation. #1. Dyspnea, worse with exertion w/ Known PEs (reconfirmed on CTPA upon presentation) w/ New Onset Hypoxia: CTPA with multiple intraluminal filling defects in keeping with bilateral pulmonary emboli more prominent in the right hemithorax with findings suggestive of bibasilar atelectasis. Patient unable to be chronically anticoagulated with known PEs secondary to bleeding from her esophageal cancer s/p IVC Filter placement, following w/ Dr. Schmidt Vascular Surgery. Discussed case with Dr. Schmidt will review patient CT and evaluate. #2. Abdominal pain, primarily BL LE Quadrant, cramping, unclear etiology: Unclear etiology, more distal than region of radiation and no obvious findings on CT imaging. 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 Matos and Dr. Puckett with known related PEs but unable to be anticoagulated as noted #2. Will trial on clears, start bentyl, will have PRN Magic mouth wash and Mylanta, continue carafate, transition to IV PPI temporarily until assure oral intake tolerated. Oncology consulted given status, pending. Phos pending, Mag 1.7. #3. Hypokalemia: Admission K+ 2.7, magnesium level 1.7, supplementation given, repeat level in AM. #4. Known cystic mass thyroid gland: CTPA with noted 3.6 x 3.5 cm heterogeneous predominantly cystic mass in the mid and inferior pole of the right lobe of the thyroid gland unchanged from previous, TSH and free T4 requested, encourage continued outpatient follow-up. #5. Hypertension: Continue home regimen including losartan with hold parameters or alteration as needed, holding HCTZ, PRN hydralazine. #6. Hyperlipidemia: We will continue patient on statin therapy. #7. ? Diabetes mellitus type II: Noted in history, not on regimen, will obtain hemoglobin A1c but in the interim maintain on accu checks w/ ISS. Given acute presentation #1 will attempt clears initially to ascertain if able to tolerate. #8. Chronic normocytic anemia/iron deficiency anemia: Admission hemoglobin 11.7, most recent baseline prior 03/19/2022 hemoglobin 10.0, stable, trend. Patient with as noted #2 fungating/ulcerating adenocarcinoma with bleeding associated especially with attempt for anticoagulation secondary to pulmonary e mboli status post IVC filter placement. #9. GERD: Given #[address] on high dose IV PPI BID, continue carafate. #10. Severe protein calorie malnutrition: Evidenced by significant reduction in oral intake, weight loss, esophageal cancer with extension into the gastric region undergoing currently radiation therapy, nutrition consulted for recommendations. #11. DVT prophylaxis: SCDs, defer any chemoprophylaxis given significant bleeding with patient fungating/ulcerating adenocarcinoma. #12. CODE status: Patient HCPOA is her and living will is currently in place. Discussed CODE status at length including difference between FULL code, DNR-CCA and DNR-CC status. Following discussions about the differences in these status, requested DNR-CCA, no intubation. Patient is highly interested in consultation with oncology to ascertain where she is at this time given her significant decline. Advanced Care Planning Face to Face Time: 16 minutes. Charges/Coding Visit Charges Inpatient E&M: 15952 Init Hosp L3 Procedures Hospitalists Procedures: 95851 Advncd Care Plan 30 Min
[2022-03-27 14:34] LABS: Mucous, Urine 0 SEEN /hpf (<or=2+); Red Blood Cells-Urine 0 SEEN /hpf (0-5)
[2022-03-27 14:42] LABS: Color, Urine Yellow (Yellow); Glucose, Dipstick Normal (Normal); Ketone-Dipstick 5 mg/dl (Negative); Leukocyte Esterase-Dipstick Negative /ul (Negative); Nitrite-Dipstick Negative (Negative); Occult Blood-Urine Negative /ul (Negative); Protein-Dipstick Negative (Negative); Urine Bilirubin Dipstick Negative (Negative); Urine Clarity Clear (Clear); Urine Urobilinogen 1 mg/dl (Normal)
[2022-03-27 14:48] LABS: Squamous Epithelial Cells - UA 0-5 SEEN /hpf (5-10); White Blood Cells 0-5 SEEN /hpf (0-5)
[2022-03-27 14:49] LABS: Bacteria RARE /hpf (None Seen)
[2022-03-27 15:41] LABS: Phosphorus 1.7 mg/dL (2.5-4.9)
[2022-03-27] MEDS: 0.9% Normal Saline 1,000 ML 100 ML IV (15:47)
[2022-03-27] MEDS: Sucralfate 1 GM Tablet PO (16:39)
[2022-03-27] MEDS: Dicyclomine 10 MG Capsule 20 MG PO (16:40)
--- NOTE | 2022-03-27 17:16 | CON.PCM.SX_ITS ---
Assessment & Plan Assessment/Plan (1) S/P insertion of IVC (inferior vena caval) filter: PLAN: -CT images reviewed, filter in good position and patent -PEs appear smaller than initial study -access site satisfactory -no vascular plans HPI Consult Data Date of Consult: 03/27/22 HPI Narrative HPI Narrative: DIO HODGES, is a 76 F who presents with increasing abdominal pain and poor PO i ntake over past week. Recently diagnosed with esophageal CA, completed XRT. Initial staging CT scans had shown bilateral PE and with her GI bleeding she was deemed inappropriate for anticoagulation. She underwent an IVC filter placement on 03/[address] scans today in ED reveal filter in appropriate position with patent IVC, minimal tilt, small captured thrombus. 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 Home Medications losartan 50 mg tablet 50 mg PO DAILY #90 tabs 03/11/21 [Rx Last Taken 03/27/22] atorvastatin 20 mg tablet 20 mg PO DAILY #90 tabs 09/19/21 [Rx Last Taken 03/27/22] ondansetron HCl 4 mg tablet 4 mg PO Q8H PRN nausea and vomiting #30 tabs 03/12/22 [Rx Last Taken 03/26/22] omeprazole 20 mg capsule,delayed release 20 mg PO BID 03/17/22 [History Last Taken 03/27/22] hydrochlorothiazide 12.5 mg tablet 12.5 mg PO DAILY BP 03/27/22 [History Last Taken 03/27/22] sucralfate 100 mg/mL oral suspension (Carafate) 10 ml PO TIDCM 03/27/22 [History Last Taken 03/27/22] Allergy/AdvReac Type Severity Reaction Status Date / Time No Known Allergies Allergy Verified 03/26/22 13:49 Family History Mother Breast cancer Grandmother CVA (cerebral vascular accident) Hypertension Father Heart disease Myocardial infarction Sister Breast cancer Aunt Breast cancer Surgical History Broken ankle H/O: hysterectomy Hx of section Hx of colonoscopy Social History household members: spouse Smoking Status: Former smoker Tobacco: How many years used: 12 how long ago did patient quit smoking: smoked 3 ppd for 12 years, quit in 1980 alcohol intake: current alcohol intake frequency: holidays/special occasions only Alcohol type: beer substance use type: does not use caffeine: Yes Type: coffee what type of physical activity do you participate in: none ROS Constitutional Constitutional: Reports change in weight and poor appetite Cardiovascular Cardiovascular: Denies dyspnea at rest or edema Respiratory/Chest Respiratory/Chest: Denies pain on inspiration Gastrointestinal Gastrointestinal: Reports abdominal pain and anorexia Physical Exam Const alert, oriented x3, no apparent distress and healthy appearing General Appearance: cooperative; Negative for combative or lethargic Orientation / Consciousness: awake Exam Limitations: no limitations HEENT Head and Scalp: normocephalic and atraumatic Eyes EOMs intact bilaterally General Eye: normal appearance of both eyes Neck General: trachea midline Resp normal respiratory effort and no use of accessory muscles Effort and Inspection: Negative for labored, stridor or audible wheezes Cardio regular rate and regular rhythm Peripheral Pulses: femoral pulses present right (femoral access without hematoma) Extremity no clubbing, cyanosis or edema Skin no rashes or lesions noted and no wounds Neuro oriented x3, CN's II-XII intact bilaterally, no focal motor deficits and no sensory deficits noted Psych thought process normal, cooperative, affect normal, speech normal and activity/motor behavior normal Lab / Micro Data Result Diagrams: 03/27/22 11:30 03/27/22 11:30 Labs: Laboratory Results - last 24 hr 03/27/22 11:30: WBC 5.8, RBC 4.32, Hgb 11.7 L, Hct 37.9, MCV 87.7, MCH 27.1, MCHC 30.9 L, RDW Std Deviation 51.5 H, RDW Coeff of Colin 16.2 H, Plt Count 222, MPV 10.4, Immature Gran % (Auto) 0.300, Neut % (Auto) 79.6 H, Lymph % (Auto) 3.1 L, [place] % (Auto) 9.8, Eos % (Auto) 6.5 H, Baso % (Auto) 0.7, Absolute Neuts (auto) 4.6, Absolute Lymphs (auto) 0.18 L, Nucleated RBC % 0, Differential Comment SCANNED 03/27/22 11:30: Sodium 140, Potassium 2.7 L*, Chloride 104, Carbon Dioxide 27.0, Anion Gap 9, BUN 12, Creatinine 0.57, Estim Creat Clear Calc 37.24, Est GFR (MDRD) Af Amer 132, Est GFR (MDRD) Non-Af 109, BUN/Creatinine Ratio 20.9 H, Glucose 146 H, Calcium 10.7 H, Magnesium 1.7, Total Bilirubin 0.70, AST 20, ALT 22, Alkaline Phosphatase 158 H, Total Protein 6.8, Albumin 2.9 L, Globulin 3.9, Albumin/Globulin Ratio 0.7 L, Lipase 69 L 03/27/22 11:30: Lipase Cancelled 03/27/22 11:30: Magnesium Cancelled 03/27/22 11:30: Phosphorus 1.7 L 03/27/22 12:08: Lactic Acid 1.5 03/27/22 14:30: Urine Color Yellow, Urine Clarity Clear, Urine pH 8.0, Ur Specific [place] 1.010, Urine Protein Negative, Urine Glucose (UA) Normal, Urine Ketones 5 H, Urine Occult Blood Negative, Urine Nitrite Negative, Urine Bilirubin Negative, Urine Urobilinogen 1 H, Ur Leukocyte Esterase Negative, Urine RBC 0 SEEN, Urine WBC 0-5 SEEN, Ur Squamous Epith Cells 0-5 SEEN, Urine Bacteria RARE, Urine Mucus 0 SEEN Radiology Impression Abdomen/Pelvis CT 03/27/22 11:58 IMPRESSION: Stable thickening of the distal esophagus and gastroesophageal junction with extension of the lesser curvature of the stomach. Stable periportal and gastroepiploic lymphadenopathy. Enlarged retroperitoneal lymph nodes. Tiny gallstones. Colonic diverticula. Electronically Signed: Stas Ambrocio MD at 13:34 EDT , Chest CTA 03/27/22 12:06 IMPRESSION: Multiple intraluminal filling defects in keeping with bilateral pulmonary embolism more prominent in the right hemithorax. Findings suggestive of bibasilar atelectasis. Diffuse circumferential wall thickening of the distal esophagus and fundal portion of the stomach as well as the lesser curvature of the stomach with evidence of adenopathy in the gastroepiploic ligaments. Electronically Signed: Stas Ambrocio MD at 13:24 EDT , Charges/Coding Visit Charges Inpatient E&M: 24271 Init Hosp L1
[2022-03-27 17:30] LABS: Bedside Glucose 98 mg/dL (74-106)
--- NOTE | 2022-03-27 17:31 | ONC.CONSULT ---
Assessment & Plan Assessment/Plan (1) Primary cancer of esophagus with metastasis to other site: Status: Acute Code(s): C15.9 - Malignant neoplasm of esophagus, unspecified Plan: Stage IV with metastases to regional and nonregional lymph nodes and therefore not curable. Treatment is palliative with or without a modest survival benefit. Patient just finished palliative course of radiation on March 26, 2022 to stop bleeding from the tumor. The last witnessed bleeding was in February 2022 during the previous hospitalization. Patient is able to consume a soft diet without dysphagia. Following recovery from the acute toxicity of recent radiation patient will be reevaluated for palliative systemic therapy (combination chemotherapy and PD-L1 inhibitor immune therapy). This will be addressed with the patient in the upcoming couple of weeks depending on her performance status and quality of life. At this time specially being acutely ill she is undecided whether she would consent for systemic therapy or not. This impression and plan was discussed with the patient. (2) Pulmonary emboli: Status: Acute Code(s): I26.99 - Other pulmonary embolism without acute cor pulmonale Plan: Status post IVC filter placement due to recent acute GI bleed (3) S/P insertion of IVC (inferior vena caval) filter: Status: Acute Code(s): Z95.828 - Presence of other vascular implants and grafts (4) Abdominal pain: Status: Acute Code(s): R10.9 - Unspecified abdominal pain Plan: No acute abdominal abnormalities noted on CT March 27, 2022. Will defer to primary hospital service for symptomatic treatment HPI Consult Data Date of Service:: 03/27/22 PCP / Referring Provider: Dr. Elia Roblero MD Attending: Dr. Snidi Hummel MD Chief Complaint Chief Complaint: Abdominal pain History of Present Illness History of Present Illness: 76-year-old female admitted with acute lower abdominal pain. 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 She has just finished a course of palliative radiation (3000 cGy in 10 fractions March 13 - March 26, 2022) with a goal of stopping recurrent GI bleed. In February 2022 at initial presentation she was diagnosed with bilateral pulmonary embolism and because of acute GI bleed she was not anticoagulated systemically and an IVC filter was placed. 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 other site Home Medications losartan 50 mg tablet 50 mg PO DAILY #90 tabs 03/11/21 [Rx Last Taken 03/27/22] atorvastatin 20 mg tablet 20 mg PO DAILY #90 tabs 09/19/21 [Rx Last Taken 03/27/22] ondansetron HCl 4 mg tablet 4 mg PO Q8H PRN nausea and vomiting #30 tabs 03/12/22 [Rx Last Taken 03/26/22] omeprazole 20 mg capsule,delayed release 20 mg PO BID 03/17/22 [History Last Taken 03/27/22] hydrochlorothiazide 12.5 mg tablet 12.5 mg PO DAILY BP 03/27/22 [History Last Taken 03/27/22] sucralfate 100 mg/mL oral suspension (Carafate) 10 ml PO TIDCM 03/27/22 [History Last Taken 03/27/22] Allergy/AdvReac Type Severity Reaction Status Date / Time No Known Allergies Allergy Verified 03/26/22 13:49 Family History Mother Breast cancer Grandmother CVA (cerebral vascular accident) Hypertension Father Heart disease Myocardial infarction Sister Breast cancer Aunt Breast cancer Surgical History Broken ankle H/O: hysterectomy Hx of section Hx of colonoscopy Social History household members: spouse Smoking Status: Former smoker Tobacco: How many years used: 12 how long ago did patient quit smoking: smoked 3 ppd for 12 years, quit in 1980 alcohol intake: current alcohol intake frequency: holidays/special occasions only Alcohol type: beer substance use type: does not use caffeine: Yes Type: coffee what type of physical activity do you participate in: none ROS Constitutional Constitutional: Reports fatigue; Denies fever(s) or night sweats ENT HEENT: Reports other Details: No dysphagia but she has been on a rather soft diet ; Denies dysphagia Cardiovascular Cardiovascular: Denies chest pain or dyspnea Respiratory/Chest Respiratory/Chest: Denies cough Gastrointestinal Gastrointestinal: Reports abdominal pain, anorexia, constipation and nausea; Denies change in bowel habits, hematochezia, melena or vomiting Genitourinary Genitourinary: Denies dysuria Musculoskeletal Musculoskeletal: Denies back pain Integumentary Integumentary: Denies rash Neurologic Neurologic: Denies abnormal speech, focal weakness or numbness Hematologic/Lymphatic Hematologic/Lymphatic: Denies easy bleeding, easy bruising or lymphadenopathy Physical Exam Narrative ECOG 2 Const alert, oriented x3 and no apparent distress General Appearance: cooperative and ill appearing Positive for chronically Nutritional Appearance: obese HEENT normocephalic Eyes no scleral icterus Neck no lymphadenopathy and no JVD Lymph Lymphatic: no lymphadenopathy noted Resp clear to auscultation bilaterally Cardio regular rate and regular rhythm GI soft to palpation, non-tender and no masses Extremity no clubbing, cyanosis or edema Skin no rashes or lesions noted Neuro CN's II-XII intact bilaterally, moves all extremities and no focal motor deficits Psych mental status grossly normal Vital Signs Temperature 97.4 F L 03/27/22 15:15 Temperature Source Temporal 03/27/22 15:15 Pulse Rate 77 03/27/22 15:15 Respiratory Rate 18 03/27/22 15:15 Respiratory Effort Non-Labored 03/27/22 16:20 Respiratory Depth Normal 03/27/22 16:20 Respiratory Pattern Normal 03/27/22 16:20 Blood Pressure 144/64 H 03/27/22 15:15 Blood Pressure Mean 90 03/27/22 15:15 Blood Pressure Source Monitor 03/27/22 15:15 Blood Pressure Position Semi-Fowlers 03/27/22 15:15 Blood Pressure Location Right Arm 03/27/22 15:15 Pulse Ox 99 03/27/22 15:50 Oxygen Delivery Method Room Air 03/27/22 16:20 Oxygen Flow Rate (L/min) 2 03/27/22 15:50 Laboratory Results - last 24 hr 03/27/22 11:30: WBC 5.8, RBC 4.32, Hgb 11.7 L, Hct 37.9, MCV 87.7, MCH 27.1, MCHC 30.9 L, RDW Std Deviation 51.5 H, RDW Coeff of Colin 16.2 H, Plt Count 222, MPV 10.4, Immature Gran % (Auto) 0.300, Neut % (Auto) 79.6 H, Lymph % (Auto) 3.1 L, Lyman % (Auto) 9.8, Eos % (Auto) 6.5 H, Baso % (Auto) 0.7, Absolute Neuts (auto) 4.6, Absolute Lymphs (auto) 0.18 L, Nucleated RBC % 0, Differential Comment SCANNED 03/27/22 11:30: Sodium 140, Potassium 2.7 L*, Chloride 104, Carbon Dioxide 27.0, Anion Gap 9, BUN 12, Creatinine 0.57, Estim Creat Clear Calc 37.24, Est GFR (MDRD) Af Amer 132, Est GFR (MDRD) Non-Af 109, BUN/Creatinine Ratio 20.9 H, Glucose 146 H, Calcium 10.7 H, Magnesium 1.7, Total Bilirubin 0.70, AST 20, ALT 22, Alkaline Phosphatase 158 H, Total Protein 6.8, Albumin 2.9 L, Globulin 3.9, Albumin/Globulin Ratio 0.7 L, Lipase 69 L 03/27/22 11:30: Lipase Cancelled 03/27/22 11:30: Magnesium Cancelled 03/27/22 11:30: Phosphorus 1.7 L 03/27/22 12:08: Lactic Acid 1.5 03/27/22 14:30: Urine Color Yellow, Urine Clarity Clear, Urine pH 8.0, Ur Specific Crawford 1.010, Urine Protein Negative, Urine Glucose (UA) Normal, Urine Ketones 5 H, Urine Occult Blood Negative, Urine Nitrite Negative, Urine Bilirubin Negative, Urine Urobilinogen 1 H, Ur Leukocyte Esterase Negative, Urine RBC 0 SEEN, Urine WBC 0-5 SEEN, Ur Squamous Epith Cells 0-5 SEEN, Urine Bacteria RARE, Urine Mucus 0 SEEN 03/27/22 16:49: POC Glucose 98 Diagnostic Data Abdomen/Pelvis CT 03/27/22 11:58 IMPRESSION: Stable thickening of the distal esophagus and gastroesophageal junction with extension of the lesser curvature of the stomach. Stable periportal and gastroepiploic lymphadenopathy. Enlarged retroperitoneal lymph nodes. Tiny gallstones. Colonic diverticula. Electronically Signed: Stas Ambrocio MD at 13:34 EDT , Chest CTA 03/27/22 12:06 IMPRESSION: Multiple intraluminal filling defects in keeping with bilateral pulmonary embolism more prominent in the right hemithorax. Findings suggestive of bibasilar atelectasis. Diffuse circumferential wall thickening of the distal esophagus and fundal portion of the stomach as well as the lesser curvature of the stomach with evidence of adenopathy in the gastroepiploic ligaments. Electronically Signed: Stas Ambrocio MD at 13:24 EDT ,
[2022-03-27] MEDS: Atorvastatin Calcium 20 MG Tablet PO (21:06)
[2022-03-28] VITALS (11 sets, daily range): BP systolic 153–164; BP diastolic 57–74; PULSE 80–94; RESP 16–17; TEMP 36.6–36.8; O2SAT 92–95
[2022-03-28] MEDS: 0.9% Normal Saline 1,000 ML 100 ML IV ×2 (02:04→12:47)
[2022-03-28] MEDS: Sucralfate 1 GM Tablet PO ×3 (06:02→16:56)
[2022-03-28] MEDS: Dicyclomine 10 MG Capsule 20 MG PO ×3 (06:02→16:56)
[2022-03-28 06:16] LABS: Absolute Lymphocyte Count 0.18 X10^3/uL (0.83-4.51); Absolute Neutrophil Count 3.3 X10^3/uL (2.0-7.7); Basophil# 0.04 X10^3/uL; Basophil% 0.9 % (0-1); Eosinophil# 0.36 X10^3/uL; Eosinophils% 8.2 % (0-5); Hemoglobin 9.8 g/dL (12.0-15.0); Lymphocyte # 0.18 X10^3/ul (0.83-4.51); Lymphocyte % 4.1 % (19-41); Mean Corp Hgb Conc 29.7 g/dL (32-36); Mean Corpuscular Hgb 26.5 pg (27.0-32.0); Mean Corpuscular Volume 89.2 fL (81-99); Mean Platelet Vol. 9.7 fl (6.2-12.0); Monocyte# 0.47 X10^3/uL; Monocyte% 10.7 % (0-10); NRBC Flagged by Analyzer 0 % (0-5); Neutrophil # 3.33 X10^3/uL (2.7-7.7); Neutrophil % 75.6 % (47-70); POSITIVE DIFFERENTIAL YES; Platelet Count 181 K/mm3 (150-450); RBC Distribution Width CV 16.4 % (11.6-14.6); RBC Distribution Width SD 53.4 fl (35.1-43.9); White Blood Count 4.4 K/mm3 (4.4-11.0)
[2022-03-28 06:53] LABS: ALB/GLOB Ratio 0.7 RATIO (0.9-2.4); AST(SGOT) 15 U/L (15-37); Alanine Aminotransfer ALT/SGPT 18 U/L (13-56); Albumin, Serum 2.3 g/dL (3.2-5.0); Alkaline Phosphatase 127 U/L (45-117); Anion Gap 8 (5-15); BUN 8 mg/dL (7-18); BUN/Creat Ratio 18.7 RATIO (10-20); Calcium,Total 9.7 mg/dL (8.5-10.1); Chloride 110 mmol/L (98-107); Creatinine, Serum 0.43 mg/dL (0.55-1.02); EST Glomerular Filtration Rate 153 mL/min (>60); Est Glom Filt Rate - Afr Amer 185 mL/min (>60); Estimated Creatinine Clearance 37.24 ml/min; Globulin 3.4 g/dL (2.2-4.2); Glucose 98 mg/dL (74-106); Potassium 3.3 mmol/L (3.5-5.1); Protein, Total 5.7 g/dL (6.4-8.2); Sodium Level 142 mmol/L (136-145); T4 Free Direct 1.44 ng/dL (0.76-1.46); Thyroid Stim Hormone (TSH) 0.05 uIU/mL (0.358-3.74)
[2022-03-28 07:16] LABS: Differential Indicated SCAN CRITERIA MET
[2022-03-28] MEDS: Potassium Chloride Oral Tablet 20 MEQ 40 MEQ PO (08:13)
[2022-03-28] MEDS: Losartan Potassium 50 MG Tablet PO (08:14)
[2022-03-28 09:03] LABS: Platelet Estimate ADEQUATE (ADEQ); Red Cell Morphology NORM C+C NORMAL (NORM C&C)
[2022-03-28 11:06] LABS: Bedside Glucose 111 mg/dL (74-106)
--- NOTE | 2022-03-28 11:30 | CASEMGMT ---
ALEXIS CLARKE readmission note: Prior admission: Admitted 03/06/22 w/GIB. Discharged home 03/08/22. Pt has hx of Stage IV esophageal CA w/mets. EGD 03/06/22 with findings of partially obstructing malignant esophageal tumor found in the lower third of the esophagus, Radiation oncology and oncology consulted. Stat CT of the chest abdomen and pelvis done. Findings showed thyroid nodules, mediastinal adenopathy, bilateral PE with no heart strain or saddle embolus. There was focal wall thickening of the GE junction and fundus of the stomach as well as multiple bilateral lymph nodes in the region. Pt unable to be anticoagulated d/t high risk of bleeding. IVC filter placed 03/07/22. Pt discharged home on rx for Carafate and pantoprazole and to f/u with oncology, radiation oncology, and vascular surgery. Current admission: Admitted 03/27/22 w/ PE's, hypoxia, and abdominal pain. Pt recently completed palliative radiation therapy on Mar 26 to stop bleeding from the tumor. Oncology consulted. ALEXIS CLARKE to room. Introduced self and role. Pt states she has been able to go to all f/u appts and has taken all of her medications as prescribed. Pt currently on RA, but she did require O2 on admission. Pt does not have home O2. Pt was provided with list of DME providers consistent with the patient's preferred geographic region, medical needs, and insurance network. She was made aware [facility] is affiliated w/[facility]. The pt's preferred provider is [employer], should she qualify for Home O2 @ d/c. She denies having any other discharge planning needs or concerns. Pt meets criteria for Palliative referral per [facility] screening tool. ALEXIS CLARKE broached topic of Palliative care w/pt and questions answered. Pt states she does not feel she is ready for Palliative care at this time. She was provided w/Palliative handout and contact info, if she should decide in the future she would like to talk w/them. Anna CLEMENTE RN, CM
--- NOTE | 2022-03-28 13:05 | PN.HOSP_ITS ---
Subjective Subjective Patient seen and examined. She was admitted with a complaint of abdominal pain. She states abdominal pain is much better after she had a bowel movement. She denies any nausea, vomiting, fever or chills or diarrhea. Review of systems otherwise negative. Objective Data Objective Data Vital Signs: Vital Signs Temp Pulse Resp BP Pulse Ox O2 Del Method O2 Flow Rate 98 F 87 16 154/68 H 92 Room Air 2 03/28/22 09:02 03/28/22 11:00 03/28/22 09:02 03/28/22 09:02 03/28/22 09:02 03/28/22 09:02 03/27/22 15:50 Oxygen Flow Rate (L/min) 2 Oxygen Delivery Method Room Air Weight: 182 lb 8.684 oz Body Mass Index (BMI) 33.7 Intake & Output: Intake and Output for Last 24 Hours 03/26/22 03/27/22 03/28/22 23:59 23:59 23:59 Intake Total 1620 / 1620 2109 Output Total 0 / 0 0 / 0 Balance 1620 / 1620 2109 Medical Nutrition Assessment Dietitian: Malnutrition Criteria Met Start: 03/28/22 10:32 Freq: Status: Active Protocol: Document 03/28/22 10:32 AG (Rec: 03/28/22 10:32 AG [id number]) Nutrition Malnutrition Evidence of Malnutrition Exists Yes Malnutrition (severe): Chronic Evidenced By Suboptimal Energy Intake ( Severe),Weight Loss (Severe) Clinical Problem Chronic Disease or Condition Related Malnutrition Etiology severe, chronic malnutrition r /t inadequate energy intake w/ increased energy needs d/t cancer Signs/Symptoms as evidenced by estimated PO intake meeting <75% of estimated energy needs x 1 month; 12.6#/6.4% unintentional wt loss < 1 month Status Active Problem Recommendation Dietitian Recommendations/Changes advance diet as tolerated to transitional; ensure clear 120mL 4x/day w/ medpass while on clear liquid diet. Once tolerance of transitional diet is established, recommend regular diet and ensure plus high protein 120mL 4x/day w/ medpass. Lab / Micro Data Result Diagrams: 03/28/22 05:42 03/28/22 05:42 Labs: Laboratory Results - last 24 hr 03/27/22 11:30: Phosphorus 1.7 L 03/27/22 12:08: Lactic Acid 1.5 03/27/22 14:30: Urine Color Yellow, Urine Clarity Clear, Urine pH 8.0, Ur Specific Joice 1.010, Urine Protein Negative, Urine Glucose (UA) Normal, Urine Ketones 5 H, Urine Occult Blood Negative, Urine Nitrite Negative, Urine Bilirubin Negative, Urine Urobilinogen 1 H, Ur Leukocyte Esterase Negative, Urine RBC 0 SEEN, Urine WBC 0-5 SEEN, Ur Squamous Epith Cells 0-5 SEEN, Urine Bacteria RARE, Urine Mucus 0 SEEN 03/27/22 16:49: POC Glucose 98 03/28/22 05:42: WBC 4.4, RBC 3.70 L, Hgb 9.8 L, Hct 33.0 L, MCV 89.2, MCH 26.5 L , MCHC 29.7 L, RDW Std Deviation 53.4 H, RDW Coeff of Colin 16.4 H, Plt Count 181, MPV 9.7, Immature Gran % (Auto) 0.500, Neut % (Auto) 75.6 H, Lymph % (Auto) 4.1 L, [place] % (Auto) 10.7 H, Eos % (Auto) 8.2 H, Baso % (Auto) 0.9, Absolute Neuts (auto) 3.3, Absolute Lymphs (auto) 0.18 L, Nucleated RBC % 0, Differential Comment , Platelet Estimate ADEQUATE, RBC Morphology NORM C+C 03/28/22 05:42: Sodium 142, Potassium 3.3 L, Chloride 110 H, Carbon Dioxide 24.0, Anion Gap 8, BUN 8, Creatinine 0.43 L, Estim Creat Clear Calc 37.24, Est GFR (MDRD) Af Amer 185, Est GFR (MDRD) Non-Af 153, BUN/Creatinine Ratio 18.7, Glucose 98, Calcium 9.7, Total Bilirubin 0.40, AST 15, ALT 18, Alkaline Phosphatase 127 H, Total Protein 5.7 L, Albumin 2.3 L, Globulin 3.4, Album in/Globulin Ratio 0.7 L, TSH 0.05 L, Free T4 1.44 03/28/22 10:44: POC Glucose 111 H Radiography Diagnostic Testing: Radiology Impression Abdomen/Pelvis CT 03/27/22 11:58 IMPRESSION: Stable thickening of the distal esophagus and gastroesophageal junction with extension of the lesser curvature of the stomach. Stable periportal and gastroepiploic lymphadenopathy. Enlarged retroperitoneal lymph nodes. Tiny gallstones. Colonic diverticula. Electronically Signed: Stas Ambrocio MD at 13:34 EDT , Chest CTA 03/27/22 12:06 IMPRESSION: Multiple intraluminal filling defects in keeping with bilateral pulmonary embolism more prominent in the right hemithorax. Findings suggestive of bibasilar atelectasis. Diffuse circumferential wall thickening of the distal esophagus and fundal portion of the stomach as well as the lesser curvature of the stomach with evidence of adenopathy in the gastroepiploic ligaments. Electronically Signed: Stas Ambrocio MD at 13:24 EDT , Physical Exam Const alert, oriented x3 and no apparent distress HEENT head/scalp atraumatic, moist oral mucous membranes and oropharynx normal Head and Scalp: normocephalic Mouth: oral and palatal mucosa normal Eyes PERRL, EOMs intact bilaterally and conjunctivae normal Neck no lymphadenopathy and supple Resp normal respiratory effort, no retractions, no use of accessory muscles and clear to auscultation bilaterally Cardio regular rate, regular rhythm, S1 normal heart sound, S2 normal heart sound and no murmurs GI normal to inspection, nondistended, normoactive bowel sounds, soft to palpation, non-tender and non-distended Extremity normal to inspection, full ROM and no clubbing, cyanosis or edema Neuro oriented x3, CN's II-XII intact bilaterally, moves all extremities and no focal motor deficits Sensorium / Orientation: awake and alert Motor Exam: strength 5/5 throughout Psych affect normal Assessment & Plan Assessment/Plan (1) Abdominal pain: (2) Pulmonary emboli: PLAN: Plan #ABdominal pain, likely due to constipation * Abdominal pain resolved with bowel movement and she feels much better. * On IV PPI. Advance diet as tolerated. * #History of PEs * Has a history of PEs. CTA of the chest showed multiple intraluminal filling defects. * Unable to be on anticoagulation due to bleeding from esophageal cancer * Has IVC filter in place. Follows up with Dr. Schmidt vascular surgery * #Hypokalemia: Potassium is 3.3. Will replace and trend. 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 * Just finished a course of radiation on March 26. Per oncology, after recovery from acute toxicity of recent radiation will need to be reevaluated for palliative systemic therapy. * #Cystic thyroid mass * Has a known cystic mass on her thyroid gland and CT of the chest noted a 3.6 x 3.5 cm heterogeneous predominantly cystic mass in the mid and inferior pole of the right lower lobe with a thyroid gland * Follow-up with endocrinology on outpatient basis * #Hyperlipidemia: On statin #Hypertension: On losartan and hydrochlorothiazide #Severe protein calorie malnutrition: Nutrition on board #GERD: On PPI and Carafate DVT prophylaxis: On SCDs. * . Charges/Coding Visit Charges Inpatient E&M: 23122 Subs Hosp L2
[2022-03-28] MEDS: Ensure Clear 120 ML Liquid PO (14:00)
[2022-03-28 17:11] LABS: Bedside Glucose 103 mg/dL (74-106)
[2022-03-28] MEDS: Atorvastatin Calcium 20 MG Tablet PO (22:01)
[2022-03-28] MEDS: hydrALAZINE 20 MG/ML Vial 10 MG IV (23:28)
[2022-03-29] VITALS (8 sets, daily range): BP systolic 153–167; BP diastolic 70–79; PULSE 92–98; RESP 16–18; TEMP 36.9–37.1; O2SAT 95–99
[2022-03-29] MEDS: hydrALAZINE 20 MG/ML Vial 10 MG IV (03:25)
[2022-03-29] MEDS: 0.9% Saline Lock 10 ML Syringe IV (03:28)
[2022-03-29 05:57] LABS: Absolute Lymphocyte Count 0.21 X10^3/uL (0.83-4.51); Absolute Neutrophil Count 4.9 X10^3/uL (2.0-7.7); Basophil# 0.03 X10^3/uL; Basophil% 0.5 % (0-1); Eosinophils% 6.5 % (0-5); Hematocrit 34.4 % (37-47); Hemoglobin 10.3 g/dL (12.0-15.0); Lymphocyte # 0.21 X10^3/ul (0.83-4.51); Lymphocyte % 3.4 % (19-41); Mean Corp Hgb Conc 29.9 g/dL (32-36); Mean Corpuscular Hgb 27.2 pg (27.0-32.0); Mean Corpuscular Volume 90.8 fL (81-99); Mean Platelet Vol. 10.1 fl (6.2-12.0); Monocyte# 0.59 X10^3/uL; Monocyte% 9.6 % (0-10); NRBC Flagged by Analyzer 0 % (0-5); Neutrophil # 4.91 X10^3/uL (2.7-7.7); Neutrophil % 79.7 % (47-70); POSITIVE DIFFERENTIAL YES; Platelet Count 168 K/mm3 (150-450); RBC Distribution Width CV 16.5 % (11.6-14.6); Red Blood Count 3.79 M/mm3 (4.2-5.4); White Blood Count 6.2 K/mm3 (4.4-11.0)
[2022-03-29 06:04] LABS: Differential Indicated SCAN CRITERIA MET
[2022-03-29] MEDS: Dicyclomine 10 MG Capsule 20 MG PO ×2 (06:25→11:16)
[2022-03-29] MEDS: Sucralfate 1 GM Tablet PO ×2 (06:25→11:16)
[2022-03-29] MEDS: Ondansetron 4 MG/2 ML Vial IV (06:27)
[2022-03-29 06:46] LABS: Anion Gap 7 (5-15); BUN 8 mg/dL (7-18); BUN/Creat Ratio 20.8 RATIO (10-20); Calcium,Total 9.6 mg/dL (8.5-10.1); Chloride 109 mmol/L (98-107); Creatinine, Serum 0.38 mg/dL (0.55-1.02); EST Glomerular Filtration Rate 173 mL/min (>60); Est Glom Filt Rate - Afr Amer 209 mL/min (>60); Estimated Creatinine Clearance 37.24 ml/min; Glucose 111 mg/dL (74-106); Potassium 3.7 mmol/L (3.5-5.1); Sodium Level 142 mmol/L (136-145)
[2022-03-29 06:49] LABS: Differential Comment SCANNED
[2022-03-29] MEDS: Losartan Potassium 50 MG Tablet PO (08:02)
--- NOTE | 2022-03-29 11:06 | DCINST_ITS ---
Discharge Instructions Diet Discharge Diet: Low fat / Low cholesterol Activity Discharge Activity: Return to Normal Activity Weight Bearing Status: Weight bearing as tolerated Dressing / Incision Call your doctor if you observe: Fever of 101 or Higher, Shortness of breath, Dizziness, Swelling in the ankles, Chest pain and Increased palpitations (irregular heartbeat) Follow Up Care Test Results: Test results from this visit will be discussed in further detail at your follow- up appointment, if applicable. Discharge Plan Admission Admit Date/Time: 03/27/22 14:15 Primary Reason for Your Visit: abdominal pain due to constipation Attending Provider: Christina Cohen Primary Care Provider: Elia Roblero Consulting Providers: Bud Goldstein ; Brian Wood ; Louisa Matos ; Marshall Spann ; Rad Sanchez ; Davie Jenkins ; Arben Puckett ; Ashely Salter NP ; Giuseppe Schmidt ; Sindi Hummel Instructions Patient Instructions: Cancer Constipation Tips Discharge Orders/Prescriptions Prescriptions: New sennosides [Senokot] 8.6 mg tablet 8.6 mg PO BID PRN (Reason: constipation) Qty: 30 1RF Continued omeprazole 20 mg capsule,delayed release(DR/EC) 20 mg PO BID sucralfate [Carafate] 100 mg/mL suspension 10 ml PO TIDCM atorvastatin 20 mg tablet 20 mg PO DAILY Qty: 90 3RF ondansetron HCl 4 mg tablet 4 mg PO Q8H PRN (Reason: nausea and vomiting) Qty: 30 0RF Rx Instructions: take prior to radiation hydrochlorothiazide 12.5 mg tablet 12.5 mg PO DAILY Qty: 60 0RF Label Comments: TAKE 1 TABLET BY MOUTH EVERY DAY losartan 50 mg tablet 50 mg PO DAILY Qty: 60 0RF Referrals / Follow Up: Elia Roblero MD [Primary Care Provider] - Within 2 Weeks Disposition Disposition (needs filled in before D/C Order can be placed): Home, Self Care
--- NOTE | 2022-03-29 11:49 | DS.PCM_ITS ---
Providers Date of Admission: 03/27/22 Date of Discharge: 03/29/22 Primary Care Physician: Dr. Elia Roblero MD Consultations 03/27/22 14:59 Consult: Oncology/Hematology Routine Consulting Provider: [facility] ([facility]) Reason for Consult: Hypoxia w/ PEs now, Abdominal pain w/ radiation w/ Metastatic Esoph CA EMERGENT Consult: No Notified: Yes Date Notified: 03/27/22 Time Notified: 15:06 Method of Notification: Verbal Consult: Vascular Surgery Routine Consulting Provider: Giuseppe Schmidt Reason for Consult: Known BL PE, now hypoxic, worsening w/ Met CA EMERGENT Consult: No Notified: Yes Date Notified: 03/27/22 Time Notified: 14:58 Method of Notification: Text Reason For Visit: PES, HYPOXIA, ABDOMINAL PAIN Diagnosis Discharge Diagnosis (1) Abdominal pain: Status: Acute Code(s): R10.9 - Unspecified abdominal pain (2) Pulmonary emboli: Status: Acute Code(s): I26.99 - Other pulmonary embolism without acute cor pulmonale Plan #ABdominal pain, likely due to constipation * Abdominal pain resolved with bowel movement and she feels much better. * On IV PPI. Advance diet as tolerated. * #History of PEs * Has a history of PEs. CTA of the chest showed multiple intraluminal filling defects. * Unable to be on anticoagulation due to bleeding from esophageal cancer * Has IVC filter in place. Follows up with Dr. Schmidt vascular surgery * #Hypokalemia: Potassium is 3.3. Will replace and trend. 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 * Just finished a course of radiation on March 26. Per oncology, after recovery from acute toxicity of recent radiation will need to be reevaluated for palliative systemic therapy. * #Cystic thyroid mass * Has a known cystic mass on her thyroid gland and CT of the chest noted a 3.6 x 3.5 cm heterogeneous predominantly cystic mass in the mid and inferior pole of the right lower lobe with a thyroid gland * Follow-up with endocrinology on outpatient basis * #Hyperlipidemia: On statin #Hypertension: On losartan and hydrochlorothiazide #Severe protein calorie malnutrition: Nutrition on board #GERD: On PPI and Carafate DVT prophylaxis: On SCDs. * . Medications at Discharge Home Medications atorvastatin 20 mg tablet 20 mg PO DAILY #90 tabs 09/19/21 ondansetron HCl 4 mg tablet 4 mg PO Q8H PRN nausea and vomiting #30 tabs 03/12/22 omeprazole 20 mg capsule,delayed release 20 mg PO BID 03/17/22 sucralfate 100 mg/mL oral suspension (Carafate) 10 ml PO TIDCM 03/27/22 hydrochlorothiazide 12.5 mg tablet 12.5 mg PO DAILY BP #60 tabs 03/28/22 losartan 50 mg tablet 50 mg PO DAILY #60 tabs 03/28/22 sennosides 8.6 mg tablet (Senokot) 8.6 mg PO BID PRN constipation #30 tabs 03/29/22 Hospital Course Operations None Procedures None Summary of Care Provided Minutes Spent on Discharge: 45 Hospital Course: Patient is a 76-year-old female with an extensive past medical history as outlined who was admitted through the ED on 03/27/2022 with a complaint of lower abdominal pain which have been going on for about a week. She had assisted poor oral intake as well as associated shortness of breath. Labs were essentially unremarkable and CT of the abdomen and pelvis showed stable thickening of the distal esophagus and GE junction with extension of the lesser curvature of the stomach and stable periportal and gastroepiploic lymphadenopathy with enlarged retroperitoneal lymph nodes, tiny gallstones and colonic diverticula and CT of the chest showed multiple intraluminal filling defects in keeping with bilateral pulmonary emboli which was known. She was admitted to be managed for abdominal pain which was later thought to be due to constipation as was relieved with iza l movement. Patient says she had not been having frequent bowel movements. Vascular surgery evaluated patient and deemed that his IVC filter which was in place was functioning. Hospital course was not complicated and she remained stable. Abdominal pain completely resolved and she was able to tolerate a diet. She was discharged on 03/29/2022. She is to follow-up with her primary care doctor and oncologist within 1 to 2 weeks. Patient seen and examined prior to discharge. He admitted to anorexia which was longstanding but denied any nausea. Review of systems otherwise negative. Labs and vitals reviewed. Home medication reviewed and reconciled. Physical Exam Const alert, oriented x3 and no apparent distress General Appearance: cooperative, comfortable and well kempt Orientation / Consciousness: awake Exam Limitations: no limitations HEENT normocephalic, head/scalp atraumatic, hearing grossly normal bilaterally, moist oral mucous membranes and oropharynx normal Mouth: oral and palatal mucosa normal Eyes PERRL, EOMs intact bilaterally and conjunctivae normal Neck no lymphadenopathy and supple Resp normal respiratory effort, no retractions, no use of accessory muscles and clear to auscultation bilaterally Cardio regular rate, regular rhythm, S1 normal heart sound, S2 normal heart sound and n o murmurs GI normal to inspection, nondistended, normoactive bowel sounds, soft to palpation, non-tender and non-distended Extremity normal to inspection, full ROM and no clubbing, cyanosis or edema Skin no rashes or lesions noted Neuro oriented x3, CN's II-XII intact bilaterally, moves all extremities and no focal motor deficits Sensorium / Orientation: awake and alert Motor Exam: strength 5/5 throughout Psych affect normal Weight / BMI Weight Weight: 182 lb 8.684 oz Body Mass Index (BMI) 33.7 ABG / Lab / Microbiology Data Result Diagrams: 03/29/22 05:20 03/29/22 05:20 Laboratory: Laboratory Results - last 24 hr 03/28/22 16:49: POC Glucose 103 03/29/22 05:20: WBC 6.2, RBC 3.79 L, Hgb 10.3 L, Hct 34.4 L, MCV 90.8, MCH 27.2, MCHC 29.9 L, RDW Std Deviation 55.0 H, RDW Coeff of Colin 16.5 H, Plt Count 168, MPV 10.1, Immature Gran % (Auto) 0.300, Neut % (Auto) 79.7 H, Lymph % (Auto) 3.4 L, [place] % (Auto) 9.6, Eos % (Auto) 6.5 H, Baso % (Auto) 0.5, Absolute Neuts (auto) 4.9, Absolute Lymphs (auto) 0.21 L, Nucleated RBC % 0, Differential Comment SCANNED 03/29/22 05:20: Sodium 142, Potassium 3.7, Chloride 109 H, Carbon Dioxide 26.0, Anion Gap 7, BUN 8, Creatinine 0.38 L, Estim Creat Clear Calc 37.24, Est GFR (MDRD) Af Amer 209, Est GFR (MDRD) Non-Af 173, BUN/Creatinine Ratio 20.8 H, Glucose 111 H, Calcium 9.6 D/C Instructions Discharge Diet: Low fat / Low cholesterol Discharge Activity: Return to Normal Activity Weight Bearing Status: Weight bearing as tolerated Call your doctor if your incision/area has: Continuous Slow Oozing Call your doctor if you observe: Fever of 101 or Higher, Shortness of breath, Dizziness, Swelling in the ankles, Chest pain and Increased palpitations (irregular heartbeat) Meaningful Use Info Meaningful Use Diagnoses (Choose all that apply): None applicable Discharge Plan Admission Admit Date/Time: 03/27/22 14:15 Primary Reason for Your Visit: abdominal pain due to constipation Attending Provider: Christina Cohen Primary Care Provider: Elia Roblero Consulting Providers: Bud Goldstein ; Brian Wood ; Louisa Matos ; Marshall Spann ; Rad Sanchez ; Davie Jenkins ; Arben Puckett ; Ashely Salter NP ; Giuseppe Schmidt ; Sindi Hummel Instructions Patient Instructions: Cancer Constipation Tips Discharge Orders/Prescriptions Prescriptions: New sennosides [Senokot] 8.6 mg tablet 8.6 mg PO BID PRN (Reason: constipation) Qty: 30 1RF Continued omeprazole 20 mg capsule,delayed release(DR/EC) 20 mg PO BID sucralfate [Carafate] 100 mg/mL suspension 10 ml PO TIDCM atorvastatin 20 mg tablet 20 mg PO DAILY Qty: 90 3RF ondansetron HCl 4 mg tablet 4 mg PO Q8H PRN (Reason: nausea and vomiting) Qty: 30 0RF Rx Instructions: take prior to radiation hydrochlorothiazide 12.5 mg tablet 12.5 mg PO DAILY Qty: 60 0RF Label Comments: TAKE 1 TABLET BY MOUTH EVERY DAY losartan 50 mg tablet 50 mg PO DAILY Qty: 60 0RF Referrals / Follow Up: Elia Roblero MD [Primary Care Provider] - Within 2 Weeks Louisa Matos MD [Med Staff - Active Staff] - Within 2 Weeks Disposition Disposition (needs filled in before D/C Order can be placed): Home, Self Care Charges/Coding Visit Charges Inpatient E&M: 22821 Disch Hosp
== END 2022-03-29 11:47 | disposition home or self-care (01) | DRG 175 ==
LOC: ED 14:24 → PCU 14:35
PROVIDERS: Admitting Provider Family Medicine; Emergency Provider Emergency Medicine; PCP Internal Medicine; Visit Provider Student in an Organized Health Care Education/Training Program
DX: I26.99 Other pulmonary embolism without acute cor pulmonale (principal); E43 Unspecified severe protein-calorie malnutrition; C77.9 Secondary and unspecified malignant neoplasm of lymph node, unspecified; C78.89 Secondary malignant neoplasm of other digestive organs; C15.9 Malignant neoplasm of esophagus, unspecified; C78.7 Secondary malignant neoplasm of liver and intrahepatic bile duct; D50.9 Iron deficiency anemia, unspecified; D63.0 Anemia in neoplastic disease; E04.1 Nontoxic single thyroid nodule; E11.9 Type 2 diabetes mellitus without complications; I10 Essential (primary) hypertension; E87.6 Hypokalemia; K21.9 Gastro-esophageal reflux disease without esophagitis; E78.5 Hyperlipidemia, unspecified; K76.9 Liver disease, unspecified; K57.30 Diverticulosis of large intestine without perforation or abscess without bleeding; K22.5 Diverticulum of esophagus, acquired; K59.00 Constipation, unspecified; R10.9 Unspecified abdominal pain; Z66 Do not resuscitate; Z87.891 Personal history of nicotine dependence; Z92.3 Personal history of irradiation; Z51.5 Encounter for palliative care; Z80.3 Family history of malignant neoplasm of breast; Z82.3 Family history of stroke; R09.02 Hypoxemia; Z95.828 Presence of other vascular implants and grafts; Z86.711 Personal history of pulmonary embolism
CPT/HCPCS: 36415; 71275; 74177; 77336; 77387; 77412; 80048; 80053; 81001; 82962; 83605; 83690; 83735; 84100; 84439; 84443; 85025; 97802; 99251; 99284; J7030; Q9967; A4216; G0463; J2405